=== PATIENT | female | born 1965 | race Caucasian/White ===

== ENCOUNTER 2019-05-22 00:25 | Day surgery (SDC) | payer MEDICARE, OTHER, SELFPAY ==
[2019-05-08 13:40] VITALS: BMI 40.2
--- NOTE | 2019-05-19 18:34 | WPDANESEPP ---
Anes - Eval Pre Procedure Procedure: Operation Date: 05/22/19 07:30 Proposed Procedures p Hysteroscopy, Dilation and Curettage - Shanda Virk MD Date/Time: 05/19/19 18:34 Pre Op Diagnosis: Thickened Endometrium/ Postmenopausal Bleeding Patient Data Age: 54 Gender: F Height: 1.57 m Weight: 99.8 kg Allergies Allergy/AdvReac Type Severity Reaction Status Date / Time iodine Allergy Mild EYE Unverified 05/08/19 13:32 SWELLING Penicillins Allergy Unknown Hives Verified 05/08/19 13:32 Sulfa (Sulfonamide Allergy Unknown Unknown Verified 05/08/19 13:32 Antibiotics) GLUTARALDEHYDE Allergy Unknown HIVES Uncoded 05/08/19 13:32 Home Medications Medication Instructions Recorded Confirmed Type albuterol sulfate [Ventolin HFA] 2 puff INHALATION PRN PRN 05/08/19 05/08/19 History buspirone 30 mg PO HS 05/08/19 05/08/19 History cholecalciferol (vitamin D3) 5,000 unit PO EVERY OTHER DAY 05/08/19 05/08/19 History fexofenadine-pseudoephedrine 1 tablet PO HS 05/08/19 05/08/19 History [Ryanne-D 24 Hour] metoprolol succinate 50 mg PO HS 05/08/19 05/08/19 History paroxetine HCl [Paxil] 30 mg PO HS 05/08/19 05/08/19 History ECG: NSR 67 BPM Patient hx anesthesia problems: none Family hx anesthesia problems: none PMFSH Past Medical History Medical History (Updated 05/19/19 @ 18:39 by Flora Enrique CRNA) Asthma Depression Endometriosis History of hysteroscopy HTN (hypertension) Morbid obesity Osteopenia Surgical History Surgical History (Updated 05/19/19 @ 18:39 by Flora Enrique CRNA) H/O cystoscopy History of bilateral tubal ligation History of tonsillectomy and adenoidectomy Previous section S/P right oophorectomy Family History Family History (Updated 01/30/15 @ 09:27 by DOCTOR UNKNOWN) Other Cerebrovascular accident Diabetes mellitus Family history of allergic disorder Family history of cardiovascular disease Family history of malignant neoplasm Hypertension Social History Social History Smoking status: Never smoker Alcohol intake: never Exam Day of Procedure 05/19/19 18:34
[2019-05-22] VITALS (7 sets, daily range): BP systolic 105–139; BP diastolic 53–76; PULSE 63–72; RESP 12–16; TEMP 36.7; O2SAT 93–100; BMI 40.6
[2019-05-22] MEDS: LACTATED RINGERS 1,000 ML 30 ML IV CONT (06:40)
--- NOTE | 2019-05-22 07:10 | PM.HPGS ---
History of Present Illness History of Present Illness Consent: Risks, benefits, and alternatives have been discussed and questions answered. Patient agrees to proceed with procedure. Chief complaint: Thickened Endometrium/ Postmenopausal Bleeding Narrative: Carmen Philippe is a 54 year old female with postmenopausal bleeding and u/s with thickened lining at 7 mm. Recommended to proceed with hysteroscopy and D&C. Risks of infection, bleeding, and perforation reviewed. Possible pathology discussed. Patient voiced understanding and agrees to proceed. Review of Systems Constitutional: Constitutional: Reports fatigue Gastrointestinal: Gastrointestinal: Reports heartburn Musculoskeletal: Musculoskeletal: Reports back pain and Reports myalgias Psychiatric: Psychiatric: Reports anxiety [facility] Past Medical History Medical History (Updated 05/22/19 @ 07:15 by Shanda Vikr MD) Asthma Depression Endometriosis History of hysteroscopy HTN (hypertension) Morbid obesity Osteopenia Surgical History Surgical History (Updated 05/19/19 @ 18:39 by Flora Enrique CRNA) H/O cystoscopy History of bilateral tubal ligation History of tonsillectomy and adenoidectomy Previous section S/P right oophorectomy Family History Family History (Updated 01/30/15 @ 09:27 by DOCTOR UNKNOWN) Other Cerebrovascular accident Diabetes mellitus Family history of allergic disorder Family history of cardiovascular disease Family history of malignant neoplasm Hypertension Social History Social History Smoking status: Never smoker Alcohol intake: never Meds Home Medications and Allergies Home Medications Medication Instructions Recorded Confirmed Type albuterol sulfate [Ventolin HFA] 2 puff INHALATION PRN PRN 05/08/19 05/08/19 History buspirone 30 mg PO HS 05/08/19 05/08/19 History cholecalciferol (vitamin D3) 5,000 unit PO EVERY OTHER DAY 05/08/19 05/08/19 History fexofenadine-pseudoephedrine 1 tablet PO HS 05/08/19 05/08/19 History [Ryanne-D 24 Hour] metoprolol succinate 50 mg PO HS 05/08/19 05/08/19 History paroxetine HCl [Paxil] 30 mg PO HS 05/08/19 05/08/19 History Allergies Allergy/AdvReac Type Severity Reaction Status Date / Time iodine Allergy Mild EYE Verified 05/22/19 06:49 SWELLING Penicillins Allergy Unknown Hives Verified 05/08/19 13:32 Sulfa (Sulfonamide Allergy Unknown Unknown Verified 05/08/19 13:32 Antibiotics) GLUTARALDEHYDE Allergy Unknown HIVES Uncoded 05/08/19 13:32 Vital Signs Vital Signs - 24 hr 05/22/19 06:40 Temperature 98.0 F Pulse Rate 65 Respiratory Rate 15 Blood Pressure 105/71 Pulse Oximetry 98 Exam Narrative: Exam Narrative: BMI 40 Const: General: no acute distress Resp: Auscultation: clear to auscultation bilaterally Cardio: Rate: regular rate Rhythm: regular rhythm GI: GI Palp: Yes soft : External Female Exam: normal external appearance Speculum Exam - Vagina: normal appearance of the vagina Speculum Exam - Cervix: normal appearance of the cervix Bimanual exam- vagina & uterus: normal bimanual exam Bimanual Exam- Adnexa, other: normal adnexae Psych: Mental Status: mental status grossly normal Assessment and Plan Assessment and plan (1) Post-menopausal bleeding: Code(s): N95.0 - Postmenopausal bleeding Status: Acute Assessment and Plan: Plan hysteroscopy with D&C
--- NOTE | 2019-05-22 07:18 | WPDANESEPPF ---
Anes - Initial Pre Proc Eval Procedure: Operation Date: 05/22/19 07:30 Proposed Procedures p Hysteroscopy, Dilation and Curettage - Shanda Virk MD Date/Time: 05/22/19 07:18 Surgeon: Shanda Virk MD Pre Op Diagnosis: Thickened Endometrium/ Postmenopausal Bleeding Patient Data Age: 54 Gender: F Height: 5 ft 2 in Weight: 100.8 kg Last Vital Signs Temp 98.0 F 05/22/19 06:40 Pulse 65 05/22/19 06:40 Resp 15 05/22/19 06:40 BP 105/71 05/22/19 06:40 Pulse Ox 98 05/22/19 06:40 Allergies Allergy/AdvReac Type Severity Reaction Status Date / Time iodine Allergy Mild EYE Verified 05/22/19 06:49 SWELLING Penicillins Allergy Unknown Hives Verified 05/08/19 13:32 Sulfa (Sulfonamide Allergy Unknown Unknown Verified 05/08/19 13:32 Antibiotics) GLUTARALDEHYDE Allergy Unknown HIVES Uncoded 05/08/19 13:32 Home Medications Medication Instructions Recorded Confirmed Type albuterol sulfate [Ventolin HFA] 2 puff INHALATION PRN PRN 05/08/19 05/08/19 History buspirone 30 mg PO HS 05/08/19 05/08/19 History cholecalciferol (vitamin D3) 5,000 unit PO EVERY OTHER DAY 05/08/19 05/08/19 History fexofenadine-pseudoephedrine 1 tablet PO HS 05/08/19 05/08/19 History [Ryanne-D 24 Hour] metoprolol succinate 50 mg PO HS 05/08/19 05/08/19 History paroxetine HCl [Paxil] 30 mg PO HS 05/08/19 05/08/19 History Patient hx anesthesia problems: none Family hx anesthesia problems: none PMFSH Past Medical History Medical History (Updated 05/22/19 @ 07:15 by Shanda Virk MD) Asthma Depression Endometriosis History of hysteroscopy HTN (hypertension) Morbid obesity Osteopenia Surgical History Surgical History (Updated 05/19/19 @ 18:39 by Flora Enrique CRNA) H/O cystoscopy History of bilateral tubal ligation History of tonsillectomy and adenoidectomy Previous section S/P right oophorectomy Family History Family History (Updated 01/30/15 @ 09:27 by DOCTOR UNKNOWN) Other Cerebrovascular accident Diabetes mellitus Family history of allergic disorder Family history of cardiovascular disease Family history of malignant neoplasm Hypertension Social History Social History Smoking status: Never smoker Alcohol intake: never Anes - Eval Final PreProcedure Day of Procedure 05/22/19 07:18 Patient weight: morbidly obese Heart: regular rate and rhythm Lungs: clear to auscultation Airway: Mallampati scale class II Neurological: alert and oriented Last oral intake: >/= 8 hours ASA classification: III Emergent: no Anesthetic plan: proceed Anesthesia type and monitoring: general GIVS and standard monitoring Informed Consent: The patient's anesthetic plan and its attendant risks and benefits were discussed with the patient/family/POA. Questions were solicited and answers provided to the satisfaction of the patient/family/POA.
[2019-05-22] MEDS: KETOROLAC 30 MG/ML VIAL (*BKC) IV PUSH (07:48)
--- NOTE | 2019-05-22 07:51 | PM.OP ---
Procedure Note - Brief Procedure Note - Brief Date of procedure: 05/22/19 Pre-op diagnosis: Thickened Endometrium/ Postmenopausal Bleeding Post-op diagnosis: same Procedure performed: hysteroscopy with D&C Anesthesia: MAC and local Surgeon: Shanda Virk MD Estimated blood loss (mL): 5 Drains: No Packing: No Pathology: yes (endometrial curettings) Complications: No immediate complications Condition: stable Disposition: PACU Findings: uterus 7 cm and grossly atrophic
--- NOTE | 2019-05-22 12:10 | OP_ITS ---
DATE OF PROCEDURE: 05/22/2019 PREOPERATIVE DIAGNOSIS: Postmenopausal bleeding with thickened endometrium. POSTOPERATIVE DIAGNOSIS: Postmenopausal bleeding with thickened endometrium. PROCEDURE: Hysteroscopy with D and C. ANESTHESIA: MAC and local. FINDINGS: The uterus sounded to 7 cm, appears grossly atrophic. ESTIMATED BLOOD LOSS: 5 cc. PATHOLOGY: Endometrial curettings. DESCRIPTION OF PROCEDURE: The patient was taken to the operating room, placed under anesthesia, prepped and draped in usual sterile fashion. Bivalved speculum was placed in the vagina. Cervix was grasped on the anterior lip with a tenaculum and injected with 1% lidocaine. The uterus was sounded to 7 cm. The cervix was serially dilated with Hegars. The diagnostic hysteroscope was placed with the above-stated findings. The hysteroscope was removed. The medium sharp curette was used to sharply curette the endometrium until a good uterine cry was noted in all areas. All instruments were then removed. The patient was awakened from anesthesia and taken to Recovery in stable condition. D I MT: Akil
== END 2019-05-22 09:47 | disposition home or self-care (01) ==
PROVIDERS: Visit Provider Obstetrics & Gynecology Gynecology
PROC: 0U5B8ZZ Destruction of Endometrium, Via Natural or Artificial Opening Endoscopic (ICD-10-PCS; CPT 58563; principal; 2019-05-22 07:30)
DX: N95.0 Postmenopausal bleeding (principal); N85.8 Other specified noninflammatory disorders of uterus; I10 Essential (primary) hypertension; J45.909 Unspecified asthma, uncomplicated; F32.9 Major depressive disorder, single episode, unspecified; M85.80 Other specified disorders of bone density and structure, unspecified site; E66.01 Morbid (severe) obesity due to excess calories; Z68.41 Body mass index [BMI] 40.0-44.9, adult
CPT/HCPCS: 58558; 88305; A9270; J1885; J2250; J2704; J3010; J7030; J7120

== ENCOUNTER → 2021-10-03 13:58 | Outpatient (CLI) | payer MEDICARE, OTHER, SELFPAY ==
--- NOTE | ~2021-10-03 | MM_ITS ---
EXAMINATION: MM screening [facility] BI w urmila HISTORY: Screening mammogram TECHNIQUE: Craniocaudal and mediolateral oblique 3-D tomosynthesis images were obtained and synthetic 2-D images were generated. CAD analysis was submitted and interpreted. COMPARISON: 05/18/2019, 05/25/2017 BREAST PARENCHYMAL COMPOSITION: There are scattered areas of fibroglandular density. FINDINGS: There is no suspicious mass, calcification, or architectural distortion to suggest malignan cy in either breast. There has been no suspicious interval change. IMPRESSION: 1. No mammographic evidence of malignancy. 2. Recommend routine screening mammography in one year. BI-RADS Category 1: Negative Reviewed, dictated and finalized at location A.
== END ==
PROVIDERS: PCP Internal Medicine; Visit Provider Nurse Practitioner
DX: Z12.31 Encounter for screening mammogram for malignant neoplasm of breast (principal)
CPT/HCPCS: 77063; 77067

== ENCOUNTER → 2023-02-01 15:27 | Outpatient (CLI) | payer MEDICARE, OTHER, SELFPAY ==
--- NOTE | ~2023-02-01 | XR_ITS ---
AP view of the pelvis and AP and lateral views of the right hip Clinical history: Pain Findings: No acute fracture or dislocation is seen. Osseous alignment is anatomic. Bilateral hip and SI joint spaces are preserved. Soft tissues are unremarkable. Impression: No significant abnormality is seen. Reviewed, dictated and finalized at location . Impression: No significant abnormality is seen.
== END ==
PROVIDERS: PCP Internal Medicine; Visit Provider Internal Medicine
DX: M25.551 Pain in right hip (principal)
CPT/HCPCS: 73502

== ENCOUNTER → 2023-06-28 10:18 | Outpatient (CLI) | payer MEDICARE, OTHER, SELFPAY ==
--- NOTE | ~2023-06-28 | MM_ITS ---
EXAMINATION: MM screening [facility] BI w urmila HISTORY: Screening mammogram TECHNIQUE: Craniocaudal and mediolateral oblique 3-D tomosynthesis images were obtained and synthetic 2-D images were generated. CAD analysis was submitted and interpreted. COMPARISON: 10/03/2021, 05/18/2019, 06/04/2017 BREAST PARENCHYMAL COMPOSITION: There are scattered areas of fibroglandular density. FINDINGS: No suspicious mass, calcification, or architectural distortion are identified in either babar ast to suggest malignancy. There has been no suspicious interval change. IMPRESSION: 1. No mammographic evidence of malignancy. 2. Recommend routine screening mammography in one year. BI-RADS Category 1: Negative Reviewed, dictated and finalized at location A. K COOPER
--- NOTE | ~2023-06-28 | DEXA_ITS ---
Bone Density Report Name: SVEN PAPPAS Age: 58 Sex: Female Ethnicity: White Date of : 1965 Indication: postmenopausal; screening for osteoporosis; Referring Provider: ALEXANDRIA, LETHA Study: Bone densitometry was performed. Exam Date: June 28, 2023 Accession number: [id number] Bone Density: Region BMD T-score Z-score Classification AP Spine (L1-L4) 1.092 0.4 1.8 Normal Femoral Neck (Left) 0.639 -1.9 -0.6 Osteopenia Total Hip (Left) 0.937 0.0 0.9 Normal Femoral Neck (Right) 0.708 -1.3 0.0 Osteopenia Total Hip (Right) 0.933 -0.1 0.9 Normal Total Hip Mean 0.935 -0.1 0.9 Normal World Health Organization criteria for BMD impression classify patients as: Normal (T-score at or above -1.0), Osteopenia (T-score between -1.0 and -2.5), or Osteoporosis (T-score at or below -2.5). 10-year Fracture Risk(1): Major Osteoporotic Fracture 8.1% Hip Fracture 0.8% Reported Risk Factors: [place] (), Neck BMD=0.639, BMI=38.9 (1) FRAX(R) Version 3.08. Fracture probability calculated for an untreated patient. Fracture probability may be lower if the patient has received treatment. Previous Exams: Region Exam Age BMD T-score BMD Change BMD Change Date g/cm2 vs Baseline vs Previous AP Spine(L1-L4) 06/28/2023 58 1.092 0.4 0.055 0.042* 05/18/2019 54 1.049 0.0 0.012 0.012 05/15/2015 50 1.037 -0.1 Total Hip(Left) 06/28/2023 58 0.937 0.0 0.016 0.010 05/18/2019 54 0.926 -0.1 0.006 0.006 05/15/2015 50 0.920 -0.2 Total Hip(Right) 06/28/2023 58 0.933 -0.1 0.033 0.055* 05/18/2019 54 0.878 -0.5 -0.022 -0.022 05/15/2015 50 0.900 -0.3 *Denotes significance at 95% confidence level, LSC for AP Spine = 0.022 g/cm2, LSC for Total Hip = 0.027 g/cm2 Clinical Information Provided by Patient: Has used the following medications: Vitamin D, Calcium Patient maximum height was 62.7 Menopause Age: 38 No regular weight bearing exercise Does not regularly consume dairy products Onset of menses at age 11 Number of children 1 Impression: The patient has low bone mass, based on the Left Femoral Neck T-score. The patient has an estimated ten-year risk of hip fracture of 0.8% and an estimated ten-year risk of major fracture of 8.1%, based on the WHO FRAX algorithm. No significant bone loss was observed.
== END ==
PROVIDERS: PCP Nurse Practitioner; Visit Provider Nurse Practitioner
DX: Z12.31 Encounter for screening mammogram for malignant neoplasm of breast (principal); Z78.0 Asymptomatic menopausal state; M85.852 Other specified disorders of bone density and structure, left thigh; M85.851 Other specified disorders of bone density and structure, right thigh
CPT/HCPCS: 77063; 77067; 77080

== ENCOUNTER 2024-02-28 09:53 | Outpatient (CLI) | payer MEDICARE, OTHER, SELFPAY ==
--- NOTE | ~2024-02-28 | CT_ITS ---
Non-contrast CT scan of the Abdomen and Pelvis Clinical indication: Abdominal pain Technique: 2.5 mm axial scans were obtained through the abdomen and pelvis without intravenous or or al contrast. Dose reduction technique was used on this scan by utilizing automated exposure control a nd iterative reconstruction technique. The dose-length product (DLP) was 1036.10 mGy-cm. Findings: Images through the lung bases reveal no abnormalities. There is no evidence of renal or ureteral calculi. The kidneys and the ureters are nondilated. The liver, spleen, pancreas, and adrenals appear normal. Cholecystectomy clips are present. There is no aortic aneurysm. There is no evidence of bowel obstruction. Images through the pelvis were performed. There is no evidence of ascites or lymphadenopathy. Urinary bladder unremarkable. No pelvic mass seen. Impression: No significant abnormality seen. Reviewed, dictated and finalized at [facility]. Impression: No significant abnormality seen.
== END 2024-02-28 09:54 | disposition home or self-care (01) ==
LOC: MICIMG 09:56
PROVIDERS: Visit Provider Internal Medicine
DX: R10.9 Unspecified abdominal pain (principal)
CPT/HCPCS: 74176

== ENCOUNTER 2024-07-13 10:46 | Outpatient (CLI) | payer MEDICARE, OTHER, SELFPAY | END 2024-07-13 10:47 | disposition home or self-care (01) | LOC: MICIMG 10:47 | PROVIDERS: PCP Internal Medicine; Visit Provider Nurse Practitioner | DX: R10.2 Pelvic and perineal pain (principal) | CPT/HCPCS: 76830 ==

== ENCOUNTER 2024-09-05 09:37 | Outpatient (CLI) | payer MEDICARE, OTHER, SELFPAY ==
[2024-09-05 10:12] LABS: Anion Gap 9 mmol/L (4-12); Blood Urea Nitrogen 13 mg/dL (7-17); Carbon Dioxide 27 mmol/L (22-30); Chloride 102 mmol/L (98-107); Estimated Glomerular Filt Rate > 60; Glucose 116 mg/dL (65-110); Potassium 3.7 mmol/L (3.4-5.0); Sodium 138 mmol/L (137-145)
--- OUTSIDE RECORDS SUMMARY | 2024-09-05 10:46 | XMS_ITS | Clinical Summary ---
Author Organization [facility] Address [address] [place] [address] Care Team Providers Care Information Strategist Name Role Phone Philippe Terry MD Primary Care Provider [phone] Allergies Active Allergy Reactions Criticality Noted Date Comments Bupropion Unknown 09/10/2023 Duloxetine Hcl Unknown 09/10/2023 Iodinated Contrast Media Swelling Medium 06/19/2022 Iodine Swelling,Unknown High 06/02/2013 Eyes swelled closed Penicillins Unknown,Hives Medium 06/06/2018 Sulfa Antibiotics Unknown Low 06/06/2018 Medications busPIRone 10 MG tabletIndicatio ns:30mg daily Take 1 tablet (10 mg total) by mouth 3 (three) times daily. Indications: 30mg daily Active albuterol sulfate HFA 108 (90 Base) MCG/ACT inhaler Inhale 2 puffs into the lungs every 6 (six) hours as needed. Active ALPRAZolam (XANAX) 0.25 MG tablet alprazolam 0.25 mg tablet TK 1 TO 2 TS PO D PRN Active vitamin D3, cholecalciferol , 125 mcg capsule Take 1 capsule (125 mcg total) by mouth. Active levalbuterol (XOPENEX HFA) 45 MCG/ACT inhaler every 6 (six) hours. Active sertraline (ZOLOFT) 50 MG tablet Take 1 tablet (50 mg total) by mouth daily. Active hydroCHLOROthia zide (HYDRODIURIL) 25 MG tablet TAKE 1 TABLET(25 MG) BY MOUTH EVERY MORNING 30 tablet 12 5 Active losartan (COZAAR) 50 MG tablet TAKE 1 TABLET(50 MG) BY MOUTH DAILY 30 tablet 12 5 Active Active Problems Problem Noted Date Diagnosed Date Morbid (severe) obesity due to excess calories 0 06/28/2023 Body mass index (BMI) 40.0-44.9, adult 4 Right lower quadrant abdominal pain 12/16/2022 Overview (12/16/2022): Added automatically from request for surgery [id number] RUQ abdominal pain 12/16/2022 Overview (12/16/2022): Added automatically from request for surgery [id number] Food poisoning 12/16/2022 Overview (12/16/2022): Added automatically from request for surgery [id number] Chest pain 01/26/2022 Diabetes mellitus ([facility]) 12/31/2020 Epigastric pain 01/17/2020 Overview (01/17/2020): Added automatically from request for surgery [id number] Screening for colon cancer 01/17/2020 Overview (01/17/2020): Added automatically from request for surgery [id number] Constipation, unspecified constipation type 06/2019 Overview (01/17/2020): Added automatically from request for surgery [id number] Diarrhea, unspecified type 01/17/2020 Overview (01/17/2020): Added automatically from request for surgery [id number] Obesity 06/06/2018 Vitamin D deficiency 06/06/2018 Depressive disorder 06/06/2018 Hypertension 06/06/2018 Joint pain 06/06/2018 Osteopenia 06/06/2018 Sleep disorder 06/06/2018 Fatigue 06/06/2018 Palpitations 06/06/2018 Hyperglycemia 06/06/2018 Muscle pain 05/04/2013 Overview (03/25/2022): Muscle pain Encounters Date Type Department Care Team Description 07/17/2024 10:15 AM COUNSELING DIRECTOR Telephone [facility] [address] [facility] [address] [place] [address] Pb Galindo MD Holter Monitor 06/29/2024 12:15 PM COUNSELING DIRECTOR Office Visit [facility] [address] [facility] [address] [address] [place] [address] Pb Galindo MD Follow Up (Annual ) 06/29/2024 Orders Only [facility] [address] [facility] [address] [address] [place] [address] Pb Galindo MD 06/29/2024 Travel 06/07/2024 Telephone [facility] [address] [facility], [address] [place] [address] Pb Galindo MD Concerns from Last 3 Months Family History Medical History Relation Comments Hypertension Mother Stroke Mother Relation Status Comments Father (Age 42) Mother (Age 72) Social History Tobacco Use Types Packs/Day Years Used Date Smoking Tobacco: Never Smokeless Tobacco: Never Tobacco Cessation:Counseling Given: Not Answered Alcohol Use Standard Drinks/Week Comments Not Currently 0 (1 standard drink = 0.6 oz pur e alcohol) PHQ-2 Answer Date Recorded PHQ-2 Score - If the patient scores above 3, please move on to questions 3-9 0 08/27/2021 Comments No Sex and Gender Information Value Date Recorded Sex Assigned at Female 06/29/2024 11:57 AM COUNSELING DIRECTOR Legal Sex Female 8:31 PM CDT Gender Identity Not on file Sexual Orientation Not on file Last Filed Vital Signs Vital Sign Reading Time Taken Comments Blood Pressure 132/72 06/29/2024 12:02 PM COUNSELING DIRECTOR Pulse 72 06/29/2024 12:02 PM COUNSELING DIRECTOR Temperature 37.4 C (99.3 F) 03/26/2023 11:26 AM COUNSELING DIRECTOR Respiratory Rate 16 03/26/2023 11:26 AM COUNSELING DIRECTOR Oxygen Saturation 98% 06/29/2024 12:02 PM COUNSELING DIRECTOR Inhaled Oxygen Concentration - - Weight 101.2 kg (223 lb) 06/29/2024 12:02 PM COUNSELING DIRECTOR Height 157.5 cm (5' 2 ) 06/29/2024 12:02 PM COUNSELING DIRECTOR Body Mass Index 40.79 06/29/2024 12:02 PM COUNSELING DIRECTOR Plan of Treatment Upcoming Encounters Date Type Department Care Team (Late st Contact Info) Description 07/05/2025 11:00 AM COUNSELING DIRECTOR Office Visit [facility] [address] [facility] [place], [place] [id number] Pb Galindo MD [address] [facility] [address] [place], [place] [id number] Health Maintenance Due Date Last Done Comments Cervical Cancer Screening Pa p Smear (Age 30 to 64) Every 3 Years 1963 Kidney Health Evaluation 1963 Hemoglobin A1C 1963 Annual Physical 1966 Diabetes: Retinopathy Eye Exam 1981 Hepatitis C 1981 DTaP, Tdap and Td Vaccines ( 1 - Tdap) 1982 Pneumococcal Vaccine: 50+ Years (1 of 2 - PCV) 1982 Cervical Cancer Screening Pa p with HPV Testing (Age 30 to 64) Every 5 Years 1993 Cervical Cancer Screening wi HPV 1993 Mammogram Screening 2003 Zoster Vaccines (1 of 2) 2013 RSV Immunization or 60+ Years (1 - Risk 60-74 years 1-dose series) 2023 COVID-19 Vaccine (1 - 2023-2 5 season) 2024 PHQ-2 (Physician [place]) 05/17/2024 Lipid Panel 06/28/2024 06/28/2023, 03/27/2022 Colorectal Cancer Screening Colonoscopy (10 Years) 03/26/2033 03/26/2023, 01/26/2020 Meningococcal B Vaccine Aged Out No l onger eligible based on patient's age to complete this topic Meningococcal Vaccine Aged Out No bettina catina eligible based on patient's age to complete this topic RSV Immunizations Under 20 Months Aged Out No longer eligible b ased on patient's age to complete this topic Procedures Procedure Name Priority Date/Time Associated Diagnosis Comments LIPID PANEL Routine 06/28/2023 from Last 3 Months or Most Recently Relevant to Health Maintenance Results * LIPID PANEL (06/28/2023) CHOLESTEROL 166 HDL 48 TRIGLYCERIDES 101 LDL (CALCULATED) 99 06/28/2023 us Default History Genericprovider LABORATORY Final Result from Last 3 Months or Most Recently Relevant to Health Maintenance Insurance MEDICARE [employer] OPEN ACCESS [facility] Care Teams Information Strategist Relationship Specialty Start Date End Date Philippe Terry MD PCP - General INTERNAL MEDICINE 05/05/18
--- OUTSIDE RECORDS SUMMARY | 2024-09-05 10:46 | XMS_ITS | Referral Summary ---
Author Organization [facility] Address [address] [place] [address] Care Team Providers Care Marketing Assistant Manager Name Role Phone Philippe Terry MD Primary Care Provider [phone] Allergies Active Allergy Reactions Criticality Noted Date Comments Iodinated Contrast Media Swelling Medium 06/02/2013 Iodine Swelling,Unknown High 06/02/2013 Eyes swelled closed Penicillin G Penicillins Hives,Unknown Medium 06/06/2018 Sulfa (Sulfonamide Antibiotics) Unknown Low 06/06/2018 Medications PARoxetine (PAXIL) 30 mg tablet take 1 Tablet by oral route every day 0 0 3 Active busPIRone (BUSPAR) 30 mg tablet take 1 tablet by oral route a day 0 0 3 Active fexofenadine (BEKA) 180 mg tablet take 1 tablet by oral route every day 0 0 3 Active metoprolol (LOPRESSOR) 50 mg tablet take 1 tablet by oral route 2 times every day with meals 0 0 3 Active azithromycin (Zithromax Z-Raudel) 250 mg tabletIndicatio ns:Chronic sinusitis, unspecified location Take as directed 6 tablet 0 Active ALPRAZolam (XANAX) 0.25 mg tablet alprazolam 0.25 mg tablet TK 1 TO 2 TS PO D PRN Active beclomethasone (QVAR) 40 mcg/actuation inhaler Qvar 40 mcg/actuation Metered Aerosol oral inhaler Active cholecalciferol (VITAMIN D-3) 5,000 unit capsule Take 1 capsule (5,000 Units total) by mouth 3 (three) times a week Active clotrimazole-be tamethasone (LOTRISONE) cream clotrimazole-beta methasone 1 %-0.05 % topical cream Active DULoxetine DR (CYMBALTA) 60 mg capsule Take 1 capsule (60 mg total) by mouth every morning 2 Active ketorolac (TORADOL) 10 mg tablet ketorolac 10 mg tablet Active levalbuterol (Xopenex HFA) 45 mcg/actuation inhaler Xopenex HFA 45 mcg/actuation aerosol inhaler Inhale 2 puffs 4 times a day by inhalation route as needed. 3 Active LORazepam (ATIVAN) 0.5 mg tablet lorazepam 0.5 mg tablet Active metaxalone (SKELAXIN) 800 mg tablet metaxalone 800 mg tablet TK 1 T PO QHS PRF BACK SPASM Active metoprolol XL (TOPROL-XL) 50 mg extended release tablet Take 1 tablet (50 mg total) by mouth daily 2 Active metroNIDAZOLE (METROGEL) 0.75 % gel metronidazole 0.75 % topical gel Active polyethylene glycol-electrol ytes-vitC (MoviPrep) 100-7.5-2.691 gram powder in packet MoviPrep 100 gram-7.5 gram-2.691 gram oral powder packet U UTD Active pimecrolimus (Elidel) 1 % cream Elidel 1 % topical cream APPLY A THIN LAYER TO THE AFFECTED AREA(S) BY TOPICAL ROUTE 2 TIMES PER DAY ; RUB IN GENTLY AND COMPLETELY Active pramipexole (MIRAPEX) 0.125 mg tablet pramipexole 0.125 mg tablet Active traZODone (DESYREL) 50 mg tablet trazodone 50 mg tablet Active triamcinolone (KENALOG) 0.025 % cream triamcinolone acetonide 0.025 % topical cream APPLY A THIN LAYER TO THE AFFECTED AREA BID Active dicyclomine (BENTYL) 20 mg tabletIndicatio ns:Abdominal Pain with Cramps Take 1 tablet (20 mg total) by mouth 2 (two) times a day as needed (pain) 30 tablet 3 Active ARIPiprazole (ABILIFY) 5 mg tablet Take 1 tablet (5 mg total) by mouth nightly 4 Active ergocalciferol (VITAMIN D) 50,000 unit capsule Take 1 capsule (50,000 Units total) by mouth 4 Active hydroCHLOROthia zide (HYDRODIURIL) 25 mg tablet Take 1 tablet (25 mg total) by mouth complex 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 before breakfast 4 Active losartan (COZAAR) 50 mg tablet Take 1 tablet (50 mg total) by mouth daily 4 Active benzonatate (TESSALON) 100 mg capsuleIndicati ons:Cough Take 1 capsule (100 mg total) by mouth 3 (three) times a day as needed for cough 42 capsule 4 Active Active Problems Problem Noted Date Diagnosed Date Deviated nasal septum 11/07/2021 Throat pain in adult 11/07/2021 Sleep disorder 05/04/2013 Overview (08/19/2016): Sleep disorder Restless legs syndrome 05/04/2013 Overview (08/19/2016): RLS (restless legs syndrome) Hypertension 05/04/2013 Overview (08/19/2016): Hypertension Muscle pain 05/04/2013 Overview (08/19/2016): Muscle pain Social History Tobacco Use Types Packs/Day Years Used Date Smoking Tobacco: Never Smokeless Tobacco: Never Alcohol Use Standard Drinks/Week Comments No 0 (1 standard drink = 0.6 oz pur e alcohol) Personal Safety Answer Date Recorded Have you ever been in or are you currently in a harmful physical or emotional relationship or is someone making you feel afraid or unsafe? Denies 12/02/2022 Comments No Sex and Gender Information Value Date Recorded Sex Assigned at Not on file Legal Sex Female 12:53 AM EDUCATION COURSES SALES REPRESENTATIVE Gender Identity Not on file Sexual Orientation Not on file Last Filed Vital Signs Vital Sign Reading Time Taken Comments Blood Pressure 145/81 04/10/2024 9:47 AM EDUCATION COURSES SALES REPRESENTATIVE Pulse 66 04/10/2024 9:47 AM EDUCATION COURSES SALES REPRESENTATIVE Temperature 37.4 C (99.3 F) 04/10/2024 9:47 AM EDUCATION COURSES SALES REPRESENTATIVE Respiratory Rate 16 04/10/2024 9:47 AM EDUCATION COURSES SALES REPRESENTATIVE Oxygen Saturation 96% 04/10/2024 9:47 AM EDUCATION COURSES SALES REPRESENTATIVE Inhaled Oxygen Concentration - - Weight 98.9 kg (218 lb) 04/10/2024 9:47 AM EDUCATION COURSES SALES REPRESENTATIVE Height 157.5 cm (5' 2 ) 04/10/2024 9:47 AM EDUCATION COURSES SALES REPRESENTATIVE Body Mass Index 39.87 04/10/2024 9:47 AM EDUCATION COURSES SALES REPRESENTATIVE Plan of Treatment Not on file Insurance MEDICARE [facility] OPEN ACCESS MEDICARE [facility] [employer] OPEN ACCESS MEDICARE Care Teams Marketing Assistant Manager Relationship Specialty Start Date End Date Philippe Terry MD PCP - General 08/17/16
--- OUTSIDE RECORDS SUMMARY | 2024-09-05 10:46 | XMS_ITS | Patient Health Record ---
Author Organization [facility] As [employer] [facility] Address [address] [place] [address] Care Team Providers Care Day Habilitation Supervisor Name Role Phone Philippe Terry MD Primary Care Provider Unavail able Cami Rice Unavailable [phone] Molly Chong Unavailable [phone] Migration, Provider Unavailable Unavailable Allergies Allergen (clinical drug ingredient) Drug/Non Drug Allergy documented on EMR Reaction Allergy Type Onset Date Status Substance with sulfonamide structure and antibacterial mechanism of action (substance) SULFA (SULFONAMIDE ANTIBIOTICS) (uncoded) Unknown Allergy 09/10/2023 Active duloxetine Cymbalta Unknown Drug Allergy 09/10/2023 Activ e Iodine Unknown Drug Allergy 09/10/2023 Active Wellbutrin Unknown Drug Allergy 09/10/2023 Activ e vilazodone Viibryd suicide thoughts Drug Allergy Active Substance with penicillin structure and antibacterial mechanism of action (substance) Penicillins Unknown Drug Allergy 09/10/2023 Active Reason For Referral No Information Medications Medication SIG (Take, Route, Frequency, Duration) Notes Start Date End Date Status Ondansetron 4 MG 1 tablet on the tongue and allow to dissolve Orally twice a day for 30 days 09/05/2024 Active hydroCHLOROthiazide 25 MG Oral 09/10/2023 Active Losartan Potassium 25 MG Oral 09/10/2023 Not-Taking Losartan Potassium 50 MG Oral 09/10/2023 Active Venlafaxine HCl ER 37.5 MG Oral 09/10/2023 Not-Taking Vitamin D 50 MCG (1999 UT) 1 tablet Oral ly once a week 02/03/2024 Active DULoxetine HCl 60 MG Oral 09/10/2023 Not-Taking traZODone HCl 50 MG Oral 09/10/2023 Not-Taking Vortioxetine HBr 5 MG 1 tablet Orally Once a day for 30 days Active busPIRone HCl 10 MG 1 tablet Oral three times a day for 90 days 09/10/2023 11/06/2024 Active Benzonatate 200 MG Oral 09/10/2023 Not-Taking hydrOXYzine HCl 10 MG 1 tablet as needed Orally three times a day for 90 days As needed Active ALPRAZolam 0.25 MG 1 tablet Oral once a day for 30 days PRN 07/14/2024 Active Doxycycline Hyclate 100 MG Oral 09/10/2023 Not-Taking ProAir HFA 108 (90 Base) MCG/ACT Inhalation 09/10/2023 Active Metoprolol Succinate ER 50 MG Oral 09/10/2023 Not-Taking PARoxetine HCl 30 MG 1 tablet in the morning Oral Once a day for 90 days 09/10/2023 Not-Taking lamoTRIgine 25 MG 1 tablet daily for 2 weeks then increase to 2 tablets daily Orally 1 tablet daily for 2 weeks then increase to 2 tablets daily for 30 days 06/08/2024 Not-Taking Social History Tobacco Use: Social History Observation Description Date Details (start date - stop date) Never Smoker NA - NA Sex Assigned At : Social History Observation Description Sex Assigned At Female Tobacco Control (Standard) Question Answer Notes Tobacco use: Nonsmoker AUDIT-C (Standard) Question Answer Notes Did you have a drink containing alcohol in the p ast year? No Problems Problem Type SNOMED Code ICD Code Onset Dates Problem Status W/U Status Risk Notes Problem Mild recurrent major depression (09227374) Major depressive disorder, recurrent, mild (F33.0) 09/10/19 Active confirmed Problem Generalized anxiety disorder (15110560) Generalized anxiety disorder (F41.1) 09/10/19 Active confirmed Problem Insomnia disorder related to another mental disorder (58266429) Insomnia due to other mental disorder (F51.05) 09/10/19 Active confirmed Problem Screening for cardiovascular system disease (868245529) Encounter for screening for cardiovascular disorders (Z13.6) Active confirmed Problem Long-term current use of drug therapy (421459659) Other trial management associate (current) drug therapy (Z79.899) 09/10/19 Active confirmed Problem Depression Screening (181213305) Encounter for screening for depression (Z13.31) Active confirmed Problem 67506971 MDD (major depressive disorder), recurrent episode, moderate (F33.1) Active confirmed Problem 373961697 MDD (major depressive disorder), severe (F32.2) Active confirmed Vital Signs Heart Rate 68 /min 09/05/2024 Respiratory Rate 16 /min 09/05/2024 Blood pressure diastolic 69 mm Hg 09/05/2024 Height-cm 157.48 cm 09/05/2024 Weight-kg 91.35 kg 09/05/2024 Height 62.00 in 09/05/2024 Blood pressure systolic 106 mm Hg 09/05/2024 Weight 201.4 lbs 09/05/2024 BMI 36.83 kg/m2 09/05/2024 Encounters Encounter Location Date Provider Diagnosis [facility] [address] [address] 04/11/2024 Molly Mcallitser [facility] [address] [address] 09/05/2024 Molly Mcallister Generalized anxiety disorder F41.1 and MDD (major depressive disorder), severe F32.2 [facility] [address] [address] 09/10/2023 Cami Rice Generalized anxiety disorder F41.1 ; Insomnia due to other mental disorder F51.05 ; Major depressive disorder, recurrent, mild F33.0 and Other fci (current) drug therapy Z79.899 [facility] [address] [address] 02/03/2024 Cami Rice Generalized anxiety disorder F41.1 ; MDD (major depressive disorder), severe F32.2 ; Insomnia due to other mental disorder F51.05 and Other fci (current) drug therapy Z79.899 [facility] [address] [address] 02/24/2024 Cami Rice Generalized anxiety disorder F41.1 ; Major depressive disorder, recurrent, mild F33.0 ; Insomnia due to other mental disorder F51.05 and Other fci (current) drug therapy Z79.899 [facility] [address] [facility] [address] [place] [address] 06/08/2024 Cami Thery Generalized anxiety disorder F41.1 ; Major depressive disorder, recurrent, mild F33.0 ; Insomnia due to other mental disorder F51.05 and Other fci (current) drug therapy Z79.899 [facility] [place] [address] [facility] [address] [facility] [address] [place] [address] 06/29/2024 Cami Thery Generalized anxiety disorder F41.1 ; Major depressive disorder, recurrent, mild F33.0 ; Insomnia due to other mental disorder F51.05 and Other fci (current) drug therapy Z79.899 [facility] [address] [facility] [address] [place] [address] 07/14/2024 Cami Thery Generalized anxiety disorder F41.1 ; MDD (major depressive disorder), recurrent episode, moderate F33.1 ; Insomnia due to other mental disorder F51.05 and Other trial management associate (current) drug therapy Z79.899 [facility] [address] [address] 07/28/2024 Cami Thery Generalized anxiety disorder F41.1 ; MDD (major depressive disorder), recurrent episode, moderate F33.1 ; Insomnia due to other mental disorder F51.05 ; Other trial management associate (current) drug therapy Z79.899 and Encounter for screening for depression Z13.31 [facility] [place] [address] [facility] [address] [address] 08/08/2024 Cami Thery Encounter for screening for depression Z13.31 ; Generalized anxiety disorder F41.1 ; MDD (major depressive disorder), recurrent episode, moderate F33.1 ; Insomnia due to other mental disorder F51.05 ; Other trial management associate (current) drug therapy Z79.899 and Encounter for screening for cardiovascular disorders Z13.6 [facility] [employer] [address] [address] 08/17/2024 Cami Thery Encounter for screening for depression Z13.31 ; Generalized anxiety disorder F41.1 ; MDD (major depressive disorder), recurrent episode, moderate F33.1 ; Insomnia due to other mental disorder F51.05 ; Other trial management associate (current) drug therapy Z79.899 and Encounter for screening for cardiovascular disorders Z13.6 [facility] [address] [place] [address] 08/22/2024 Molly Mcallister Generalized anxiety disorder F41.1 ; MDD (major depressive disorder), recurrent episode, moderate F33.1 and Encounter for screening for depression Z13.31 [facility], [facility] [address] [place] [address] 09/05/2024 Cami Rice Encounter for screening for depression Z13.31 ; Generalized anxiety disorder F41.1 ; MDD (major depressive disorder), recurrent episode, moderate F33.1 ; Insomnia due to other mental disorder F51.05 ; Other fci (current) drug therapy Z79.899 ; Encounter for screening for cardiovascular disorders Z13.6 and Nausea and vomiting, unspecified vomiting type R11.2 [facility], [facility] [address] [place] [address] 10/02/2023 Provider Migration [facility], [facility] [address] [place] [address] 10/03/2023 Provider Migration [facility], [facility] [address] [place] [address] 02/14/2024 Cami Rice [facility], [facility] [address] [place] [address] 02/14/2024 Cami Thercristina [facility], [facility] [address] [place] [address] 04/11/2024 Cami Thercristina [facility], [facility] [address] [place] [address] 04/25/2024 Cami Thercristina [facility], [facility] [address] [place] [address] 06/08/2024 Cami Thercristina [facility], [facility] [address] [place] [address] 02/09/2024 Cami Thercristina [facility], [facility] [address] [place] [address] 02/14/2024 Cami Rice Major depressive disorder, recurrent, mild F33.0 ; Generalized anxiety disorder F41.1 ; Insomnia due to other mental disorder F51.05 ; Other trial management associate (current) drug therapy Z79.899 and Elevated liver enzymes R74.8 [facility], [facility] [address] [place] [address] 02/16/2024 Cami Thercristina [facility], [facility] [address] [place] [address] 02/16/2024 Cami Thery [facility], [facility] [address] [place] [address] 02/18/2024 Cami Thercristina [facility], [facility] [address] [place] [address] 03/02/2024 Cami Thery [facility], [facility] [address] [place] [address] 06/09/2024 Cami Thercristina [facility], [facility] [address] [place] [address] 06/12/2024 Caim Thercristina [facility], [facility] [address] [place] [address] 06/20/2024 Cami Rice Generalized anxiety disorder F41.1 [facility], [facility] [address] [place] [address] 07/07/2024 Cami Thercristina [facility], [facility] [address] [place] [address] 07/10/2024 Cami Thery [facility], [facility] [address] [place] [address] 07/10/2024 Camibeatriz Rice Major depressive disorder, recurrent, mild F33.0 [facility], [facility] [address] [place] [address] 07/27/2024 Cami Thercristina [facility], [facility] [address] [place] [address] 07/28/2024 Cami Thercristina [facility], [facility] [address] [place] [address] 07/28/2024 Cami Thery [facility], [facility] [address] [place] [address] 07/28/2024 Cami Thercristina [facility], [facility] [address] [place] [address] 08/04/2024 Cami Dwayne MDD (major depressiv e disorder), recurrent episode, moderate F33.1 [facility] [address] [place] [address] 08/07/2024 Cami Dwayne [facility] [address] [place] [address] 08/07/2024 Cami Dwayne Generalized anxiety disorder F41.1 [facility] [address] [place] [address] 08/08/2024 [facility]ne [facility] [address] [place] [address] 08/08/2024 [facility] [address] [place] [address] 08/30/2024 Cami Dwayne Generalized anxiety disorder F41.1 Assessments Encounter Date Diagnosis (ICD Code) Assessment Notes Treatment Notes Treatment Clinical Notes Section Notes 06/20/2024 Generalized anxiety disorder (ICD-10 - F41.1) 08/07/2024 Generalized anxiety disorder (ICD-10 - F41.1) 08/04/2024 MDD (major depressive disorder), recurrent episode, moderate (ICD-10 - F33.1) 08/08/2024 Encounter for screening for depression (ICD-10 - Z13.31) 1. Depression- increase depression and anxiety at Zoloft 100 mg dose- been on dose 4 days Will decrease Zoloft 50 mg daily Zoloft 50 mg daily - will titrate as needed hx PT for High tone pelvic dysfunction- no plan or intent schedule to see Guest Associate for chest pain- had test done and heart monitor scheduled- procedure 09/08- bladder biopsy Educated and discuss on medication options educated on all rx refer to therapy - Molly 2. Anxiety- Buspar 10 mg three times a day with a meal - Xanax 0.25 mg twice to three times daily PRN - educated to take for anxiety- reported taken x1 08/07/24 and helped - no refill needed today Vistaril 10 mg twice a day PRN Added 08/07/24 Sleep- sleep hygiene http_s://www.claudia .org/About-Mental -Illness/Mental-H ealth-Conditions http_s://psychcen tral.com/depressi on/the-cognitive- zocpchkj-wp-yatbk ssion#treatments http__s://www.nim .nih.gov/health/ topics/mental-hea [facility]-medications http__s://www.nam i.org/About-Menta l-Illness/Treatme nts/Mental-Health -Medications educated on all medications, benefits, side effects and risk, and educated on depression, anxiety, and ADHD, mood d/o and educated on compliance of medications, metabolic and movement d/o education appointment's, continue therapy discussion with patient about course of treatment and patient instructions. education on serotonin syndrome Discussed and educated pt regarding benzodiazepines are generally not intended for prolonged use and that use can cause tolerance, dependence, depression, and associated memory issues including dementias (this list is not exhaustive). Benzodiazepine use is generally not recommended concurrently with pain medications and/or other controlled substances educated on all medications, benefits, side effects and risk, and educated on depression, anxiety, and ADHD, mood d/o and educated on compliance of medications, metabolic and movement d/o education appointment is, continue therapy discussion with patient about course of treatment and patient instructions. education on serotonin syndrome SSRI/SNRI side effects discussed including but not limited to, gastric upset, nausea, vomiting, diarrhea and/or constipation, weight changes, sexual side effects including loss of libido, increased suicidal thoughts/behavior s in children and young adults, and serotonin syndrome. Medication Management and Follow-Up - Plan: - Schedule follow-up appointments every 1-3 months to monitor the patient's response to the medication regimen. - Reinforce the importance of avoiding recreational drug use due to potential neurotoxicity and interactions with prescribed medications. 07/14/2024 MDD (major depressive disorder), recurrent episode, moderate (ICD-10 - F33.1) Preventing Depression From Coming Back: Care Instructions material was published, Depression Treatment: Care Instructions material was published, Seasonal Affective Disorder: Care Instructions material was published, Learning About How to Get Help During a Mental Health Crisis material was published Depression- Zoloft 50 mg daily start today- cesar titrate as needed in PT for High tone pelvic dysfunction- D/C Viibyrd 10 mg dose- last taken 07/13/24 - passive thoughts last Wednesday and Leda improved today none today no plan or intent schedule to see Guest Associate for chest pain- had test done and heart monitor scheduled Educated and discuss on medication options educated on all rx refer to therapy - Molly Anxiety-Buspar 10 mg three times a day with a meal - Xanax 0.25 mg PRN - educated to take for anxiety Sleep- sleep hygiene http_s://www.claudia .org/About-Mental -Illness/Mental-H ealth-Conditions http_s://psychcen Scorista.rul.com/depressi on/the-cognitive- jtwbzkel-rn-qojnh ssion#treatments http__s://www.nim .nih.gov/health/ topics/mental-hea lth-medications http__s://www.nam i.org/About-Menta l-Illness/Treatme nts/Mental-Health -Medications educated on all medications, benefits, side effects and risk, and educated on depression, anxiety, and ADHD, mood d/o and educated on compliance of medications, metabolic and movement d/o education appointment's, continue therapy discussion with patient about course of treatment and patient instructions. education on serotonin syndrome Discussed and educated pt regarding benzodiazepines are generally not intended for prolonged use and that use can cause tolerance, dependence, depression, and associated memory issues including dementias (this list is not exhaustive). Benzodiazepine use is generally not recommended concurrently with pain medications and/or other controlled substances educated on all medications, benefits, side effects and risk, and educated on depression, anxiety, and ADHD, mood d/o and educated on compliance of medications, metabolic and movement d/o education appointment is, continue therapy discussion with patient about course of treatment and patient instructions. education on serotonin syndrome SSRI/SNRI side effects discussed including but not limited to, gastric upset, nausea, vomiting, diarrhea and/or constipation, weight changes, sexual side effects including loss of libido, increased suicidal thoughts/behavior s in children and young adults, and serotonin syndrome. Medication Management and Follow-Up - Plan: - Schedule follow-up appointments every 1-3 months to monitor the patient's response to the medication regimen. - Reinforce the importance of avoiding recreational drug use due to potential neurotoxicity and interactions with prescribed medications. 07/28/2024 Generalized anxiety disorder (ICD-10 - F41.1) Generalized Anxiety Disorder: Care Instructions material was published, Learning About Generalized Anxiety Disorder material was published, Generalized Anxiety Disorder: Care Instructions material was published, Learning About Generalized Anxiety Disorder material was published, Learning About Anxiety Disorders material was published, Learning About Transcranial Magnetic Stimulation (TMS) material was published, Learning About Generalized Anxiety Disorder material was published, Generalized Anxiety Disorder: Care Instructions material was published, Learning About Anxiety Disorders material was published Depression- improved no refills needed today Zoloft 50 mg daily start today- cesar titrate as needed in PT for High tone pelvic dysfunction- no plan or intent schedule to see Guest Associate for chest pain- had test done and heart monitor scheduled Educated and discuss on medication options educated on all rx refer to therapy - Molly Anxiety-Buspar 10 mg three times a day with a meal - Xanax 0.25 mg PRN - educated to take for anxiety Sleep- sleep hygiene http_s://www.claudia .org/About-Mental -Illness/Mental-H ealth-Conditions http_s://psychLoop Trolley.com/depressi on/the-cognitive- gxsifmzo-jj-xfoko ssion#treatments http__s://www.nim .nih.gov/health/ topics/mental-hea lth-medications http__s://www.nam i.org/About-Menta l-Illness/Treatme nts/Mental-Health -Medications educated on all medications, benefits, side effects and risk, and educated on depression, anxiety, and ADHD, mood d/o and educated on compliance of medications, metabolic and movement d/o education appointment's, continue therapy discussion with patient about course of treatment and patient instructions. education on serotonin syndrome Discussed and educated pt regarding benzodiazepines are generally not intended for prolonged use and that use can cause tolerance, dependence, depression, and associated memory issues including dementias (this list is not exhaustive). Benzodiazepine use is generally not recommended concurrently with pain medications and/or other controlled substances educated on all medications, benefits, side effects and risk, and educated on depression, anxiety, and ADHD, mood d/o and educated on compliance of medications, metabolic and movement d/o education appointment is, continue therapy discussion with patient about course of treatment and patient instructions. education on serotonin syndrome SSRI/SNRI side effects discussed including but not limited to, gastric upset, nausea, vomiting, diarrhea and/or constipation, weight changes, sexual side effects including loss of libido, increased suicidal thoughts/behavior s in children and young adults, and serotonin syndrome. Medication Management and Follow-Up - Plan: - Schedule follow-up appointments every 1-3 months to monitor the patient's response to the medication regimen. - Reinforce the importance of avoiding recreational drug use due to potential neurotoxicity and interactions with prescribed medications. 06/29/2024 Generalized anxiety disorder (ICD-10 - F41.1) Generalized Anxiety Disorder: Care Instructions material was published, Learning About Generalized Anxiety Disorder material was published, Generalized Anxiety Disorder: Care Instructions material was published, Learning About Generalized Anxiety Disorder material was published, Learning About Anxiety Disorders material was published, Learning About Transcranial Magnetic Stimulation (TMS) material was published Depression- Zoloft 50 mg daily been on this ose 4 days- conitnue rx schedule to see Guest Associate today for chest pain- wakes up in night Educated and discuss on medication options educated on all rx refer to therapy - Molly Anxiety-Buspar 10 mg three times a day with a meal - Xanax 0.25 mg PRN (not taking presently) Sleep- sleep hygiene http_s://www.claudia .org/About-Mental -Illness/Mental-H ealth-Conditions http_s://psychcen tral.com/depressi on/the-cognitive- bxckvyrq-kp-phshx ssion#treatments http__s://www.nim .nih.gov/health/ topics/mental-hea lth-medications http__s://www.nam i.org/About-Menta l-Illness/Treatme nts/Mental-Health -Medications educated on all medications, benefits, side effects and risk, and educated on depression, anxiety, and ADHD, mood d/o and educated on compliance of medications, metabolic and movement d/o education appointment's, continue therapy discussion with patient about course of treatment and patient instructions. education on serotonin syndrome Discussed and educated pt regarding benzodiazepines are generally not intended for prolonged use and that use can cause tolerance, dependence, depression, and associated memory issues including dementias (this list is not exhaustive). Benzodiazepine use is generally not recommended concurrently with pain medications and/or other controlled substances educated on all medications, benefits, side effects and risk, and educated on depression, anxiety, and ADHD, mood d/o and educated on compliance of medications, metabolic and movement d/o education appointment is, continue therapy discussion with patient about course of treatment and patient instructions. education on serotonin syndrome SSRI/SNRI side effects discussed including but not limited to, gastric upset, nausea, vomiting, diarrhea and/or constipation, weight changes, sexual side effects including loss of libido, increased suicidal thoughts/behavior s in children and young adults, and serotonin syndrome. Medication Management and Follow-Up - Plan: - Schedule follow-up appointments every 1-3 months to monitor the patient's response to the medication regimen. - Reinforce the importance of avoiding recreational drug use due to potential neurotoxicity and interactions with prescribed medications. 06/08/2024 Generalized anxiety disorder (ICD-10 - F41.1) Generalized Anxiety Disorder: Care Instructions material was published, Learning About Generalized Anxiety Disorder material was published, Generalized Anxiety Disorder: Care Instructions material was published, Learning About Generalized Anxiety Disorder material was published, Learning About Anxiety Disorders material was published, Learning About Transcranial Magnetic Stimulation (TMS) material was published Depression- presently taking Paxil 30 mg daily- educated on Paxil and age [age] years old and may need to decrease dose and switch rx decrease Paxil 20 mg daily for 2 weeks then stop Plan to Add in 2 weeks Zoloft 50 mg daily when stop Paxil Educated and discuss on medication options Add Lamotrigine 25 mg daily for next 2 weeks then increase to Lamotrigine 50 mg daily educated on all rx Lamotrigine lamotrigine has a serious rashes requiring hospitalization and discontinue treatment including Rafa Michael syndrome rare case of toxic epidermal necrolysis and cache related deaths. Incidence with adjunct of epilepsy treatment 0.8% in 2 to 16 years old and 0.3% in adults, bipolar and other mood disorders incidence 0.8% this initial monotherapy and 0.13% as adjunctive treatment. Other risk factor may include concomitant use of valproate acid derivative or exceeding initial lamotrigine does or does as clinician recommendation; most life-threatening rash of occurring first 2 to 8 week of treatment with isolated cases after prolonged treatment; though benign may occur, discontinue treatment at first sign of rash unless clearly not a drug related; TC treatment may not prevent trash from becoming life-threatening or permanently disabling or disfiguring. Comment reaction include, nausea/vomiting, dizziness/vertigo , visual disturbances, somnolence, ataxia, pruritus/rash, pharyngitis, headache, rhinitis, diarrhea, fever, asthenia, insomnia, tremor, abdominal pain, cough, accidental injury, constipation, dysmenorrhea, incoordination, anxiety, seizures, irritability, anorexia, xerostomia, and photosensitivity. Serious reactions include: Rash, severe; Dumont Michael syndrome; toxic epidermal necrosis; injury edema, hypersensitivity reactions. Including fatal, multiple organ failure to safe fatal, rash with eosinophilia systemic symptoms, DIC, neutropenia, leukopenia, thrombocytopenia, pancytopenia, aplastic anemia, hemolytic anemia, i pancreatitis, hepatic failure, rhabdomyolysis, worsening of suicidal ideation, worsening of depression, cleft lip/palate [first trimester use] DO not Change Cosmetic, perfumes or soap for next 4 weeks. The patient was advice to take lamotrigine as prescribed the patient was instructed not to deviate from the prescription dosages. Stop lamotrigine is the first sign of rash. Patient was insisted to inform office if any of the serious side effect develops. d/c Abilify 5 mg at bedtime- r/o chest pain refer to therapy - Molly Anxiety-Buspar 10 mg three times a day with a meal - Xanax 0.25 mg PRN (not taking presently) Sleep- sleep hygiene http_s://www.claudia .org/About-Mental -Illness/Mental-H ealth-Conditions http_s://psychcen [employer].rul.com/depressi on/the-cognitive- jpchbivj-mt-iaego ssion#treatments http__s://www.nim .nih.gov/health/ topics/mental-hea lth-medications http__s://www.nam i.org/About-Menta l-Illness/Treatme nts/Mental-Health -Medications educated on all medications, benefits, side effects and risk, and educated on depression, anxiety, and ADHD, mood d/o and educated on compliance of medications, metabolic and movement d/o education appointment's, continue therapy discussion with patient about course of treatment and patient instructions. education on serotonin syndrome Discussed and educated pt regarding benzodiazepines are generally not intended for prolonged use and that use can cause tolerance, dependence, depression, and associated memory issues including dementias (this list is not exhaustive). Benzodiazepine use is generally not recommended concurrently with pain medications and/or other controlled substances educated on all medications, benefits, side effects and risk, and educated on depression, anxiety, and ADHD, mood d/o and educated on compliance of medications, metabolic and movement d/o education appointment is, continue therapy discussion with patient about course of treatment and patient instructions. education on serotonin syndrome SSRI/SNRI side effects discussed including but not limited to, gastric upset, nausea, vomiting, diarrhea and/or constipation, weight changes, sexual side effects including loss of libido, increased suicidal thoughts/behavior s in children and young adults, and serotonin syndrome. Second generation antipsychotics (SGAs) have metabolic syndrome issues with weight gain, increase in prolactin, increased waist circumference, increased lipids, and increased glucose. Thus routine monitoring of weight, metabolic labs, etc. is indicated. A general rank ordering of antipsychotics that have the greatest to the least risk of metabolic effects is olanzapine, quetiapine, risperidone, ziprasidone, and aripiprazole. However, weight gain can occur with all of these drugs and considerable variability exists among patients receiving the same drug regarding the risk of metabolic effects. Anti-psychotic agents not only increase the risk of metabolic disorder, they also increase the risk of CVA, akathisia, and movement disorders including EPS or tardive dyskinesia (more common with first generation antipsychotics) and more. Medication Management and Follow-Up - Plan: - Schedule follow-up appointments every 1-3 months to monitor the patient's response to the medication regimen. - Reinforce the importance of avoiding recreational drug use due to potential neurotoxicity and interactions with prescribed medications. 07/10/2024 Major depressive disorder, recurrent, mild (ICD-10 - F33.0) 07/14/2024 Generalized anxiety disorder (ICD-10 - F41.1) Generalized Anxiety Disorder: Care Instructions material was published, Learning About Generalized Anxiety Disorder material was published, Generalized Anxiety Disorder: Care Instructions material was published, Learning About Generalized Anxiety Disorder material was published, Learning About Anxiety Disorders material was published, Learning About Transcranial Magnetic Stimulation (TMS) material was published, Learning About Generalized Anxiety Disorder material was published, Generalized Anxiety Disorder: Care Instructions material was published, Learning About Anxiety Disorders material was published Depression- Zoloft 50 mg daily start today- cesar titrate as needed in PT for High tone pelvic dysfunction- D/C Viibyrd 10 mg dose- last taken 07/13/24 - passive thoughts last Wednesday and Leda improved today none today no plan or intent schedule to see [facility] for chest pain- had test done and heart monitor scheduled Educated and discuss on medication options educated on all rx refer to therapy - Molly Anxiety-Buspar 10 mg three times a day with a meal - Xanax 0.25 mg PRN - educated to take for anxiety Sleep- sleep hygiene http_s://www.claudia .org/About-Mental -Illness/Mental-H ealth-Conditions http_s://psychcen [employer].com/depressi on/the-cognitive- qzmlnilq-kg-inolc ssion#treatments http__s://www.nim .nih.gov/health/ topics/mental-hea lth-medications http__s://www.nam i.org/About-Menta l-Illness/Treatme nts/Mental-Health -Medications educated on all medications, benefits, side effects and risk, and educated on depression, anxiety, and ADHD, mood d/o and educated on compliance of medications, metabolic and movement d/o education appointment's, continue therapy discussion with patient about course of treatment and patient instructions. education on serotonin syndrome Discussed and educated pt regarding benzodiazepines are generally not intended for prolonged use and that use can cause tolerance, dependence, depression, and associated memory issues including dementias (this list is not exhaustive). Benzodiazepine use is generally not recommended concurrently with pain medications and/or other controlled substances educated on all medications, benefits, side effects and risk, and educated on depression, anxiety, and ADHD, mood d/o and educated on compliance of medications, metabolic and movement d/o education appointment is, continue therapy discussion with patient about course of treatment and patient instructions. education on serotonin syndrome SSRI/SNRI side effects discussed including but not limited to, gastric upset, nausea, vomiting, diarrhea and/or constipation, weight changes, sexual side effects including loss of libido, increased suicidal thoughts/behavior s in children and young adults, and serotonin syndrome. Medication Management and Follow-Up - Plan: - Schedule follow-up appointments every 1-3 months to monitor the patient's response to the medication regimen. - Reinforce the importance of avoiding recreational drug use due to potential neurotoxicity and interactions with prescribed medications. 02/03/2024 MDD (major depressive disorder), severe (ICD-10 - F32.2) Learning About Depression Screening material was published, Learning About Antidepressants material was published currently taking Buspar 10 mg twice a day, Paxil 30 mg daily, and Xanax 0.25 mg PRN (not taking presently) Depression- Paxil 30 mg daily- educated on Paxil and age [age] years old and may need to decrease dose and switch rx in near future - patient tolerating rx - no refill needed on Paxil today Educated and discuss on medication options will Add Abilify 5 mg at bedtime refer to therapy - Molly or Maye Anxiety- Increase Buspar 10 mg three times a day with a meal - no refill needed today Xanax 0.25 mg PRN (not taking presently) Sleep- sleep hygiene http_s://www.claudia .org/About-Mental -Illness/Mental-H ealth-Conditions http_s://psychcen [employer].com/depressi on/the-cognitive- riangcqd-oh-vctgp ssion#treatments http__s://www.[facility].nih.gov/health/ topics/mental-hea lth-medications http__s://www.nam i.org/About-Menta l-Illness/Treatme nts/Mental-Health -Medications educated on all medications, benefits, side effects and risk, and educated on depression, anxiety, and ADHD, mood d/o and educated on compliance of medications, metabolic and movement d/o education appointment's, continue therapy discussion with patient about course of treatment and patient instructions. education on serotonin syndrome Discussed and educated pt regarding benzodiazepines are generally not intended for prolonged use and that use can cause tolerance, dependence, depression, and associated memory issues including dementias (this list is not exhaustive). Benzodiazepine use is generally not recommended concurrently with pain medications and/or other controlled substances educated on all medications, benefits, side effects and risk, and educated on depression, anxiety, and ADHD, mood d/o and educated on compliance of medications, metabolic and movement d/o education appointment is, continue therapy discussion with patient about course of treatment and patient instructions. education on serotonin syndrome SSRI/SNRI side effects discussed including but not limited to, gastric upset, nausea, vomiting, diarrhea and/or constipation, weight changes, sexual side effects including loss of libido, increased suicidal thoughts/behavior s in children and young adults, and serotonin syndrome. Second generation antipsychotics (SGAs) have metabolic syndrome issues with weight gain, increase in prolactin, increased waist circumference, increased lipids, and increased glucose. Thus routine monitoring of weight, metabolic labs, etc. is indicated. A general rank ordering of antipsychotics that have the greatest to the least risk of metabolic effects is olanzapine, quetiapine, risperidone, ziprasidone, and aripiprazole. However, weight gain can occur with all of these drugs and considerable variability exists among patients receiving the same drug regarding the risk of metabolic effects. Anti-psychotic agents not only increase the risk of metabolic disorder, they also increase the risk of CVA, akathisia, and movement disorders including EPS or tardive dyskinesia (more common with first generation antipsychotics) and more. Medication Management and Follow-Up - Plan: - Schedule follow-up appointments every 1-3 months to monitor the patient's response to the medication regimen. - Reinforce the importance of avoiding recreational drug use due to potential neurotoxicity and interactions with prescribed medications. 02/14/2024 Major depressive disorder, recurrent, mild (ICD-10 - F33.0) 02/24/2024 Major depressive disorder, recurrent, mild (ICD-10 - F33.0) Depression- Paxil 30 mg daily- educated on Paxil and age [age] years old and may need to decrease dose and switch rx in near future - patient tolerating rx - no refill needed on Paxil today- plan to taper off Paxil - rx in near future Educated and discuss on medication options Abilify 5 mg at bedtime- improved depression s/s refer to therapy - Molly or Maye Anxiety-Buspar 10 mg three times a day with a meal - no refill needed today Xanax 0.25 mg PRN (not taking presently) Sleep- sleep hygiene http_s://www.claudia .org/About-Mental -Illness/Mental-H ealth-Conditions http_s://psychcen tral.com/depressi on/the-cognitive- uerxedln-kz-mpcbc ssion#treatments http__s://www.nim h.nih.gov/health/ topics/mental-hea lth-medications http__s://www.nam i.org/About-Menta l-Illness/Treatme nts/Mental-Health -Medications educated on all medications, benefits, side effects and risk, and educated on depression, anxiety, and ADHD, mood d/o and educated on compliance of medications, metabolic and movement d/o education appointment's, continue therapy discussion with patient about course of treatment and patient instructions. education on serotonin syndrome Discussed and educated pt regarding benzodiazepines are generally not intended for prolonged use and that use can cause tolerance, dependence, depression, and associated memory issues including dementias (this list is not exhaustive). Benzodiazepine use is generally not recommended concurrently with pain medications and/or other controlled substances educated on all medications, benefits, side effects and risk, and educated on depression, anxiety, and ADHD, mood d/o and educated on compliance of medications, metabolic and movement d/o education appointment is, continue therapy discussion with patient about course of treatment and patient instructions. education on serotonin syndrome SSRI/SNRI side effects discussed including but not limited to, gastric upset, nausea, vomiting, diarrhea and/or constipation, weight changes, sexual side effects including loss of libido, increased suicidal thoughts/behavior s in children and young adults, and serotonin syndrome. Second generation antipsychotics (SGAs) have metabolic syndrome issues with weight gain, increase in prolactin, increased waist circumference, increased lipids, and increased glucose. Thus routine monitoring of weight, metabolic labs, etc. is indicated. A general rank ordering of antipsychotics that have the greatest to the least risk of metabolic effects is olanzapine, quetiapine, risperidone, ziprasidone, and aripiprazole. However, weight gain can occur with all of these drugs and considerable variability exists among patients receiving the same drug regarding the risk of metabolic effects. Anti-psychotic agents not only increase the risk of metabolic disorder, they also increase the risk of CVA, akathisia, and movement disorders including EPS or tardive dyskinesia (more common with first generation antipsychotics) and more. Medication Management and Follow-Up - Plan: - Schedule follow-up appointments every 1-3 months to monitor the patient's response to the medication regimen. - Reinforce the importance of avoiding recreational drug use due to potential neurotoxicity and interactions with prescribed medications. 02/24/2024 Generalized anxiety disorder (ICD-10 - F41.1) Generalized Anxiety Disorder: Care Instructions material was published, Learning About Generalized Anxiety Disorder material was published Depression- Paxil 30 mg daily- educated on Paxil and age [age] years old and may need to decrease dose and switch rx in near future - patient tolerating rx - no refill needed on Paxil today- plan to taper off Paxil - rx in near future Educated and discuss on medication options Abilify 5 mg at bedtime- improved depression s/s refer to therapy - Molly or Maye Anxiety-Buspar 10 mg three times a day with a meal - no refill needed today Xanax 0.25 mg PRN (not taking presently) Sleep- sleep hygiene http_s://www.claudia .org/About-Mental -Illness/Mental-H ealth-Conditions http_s://psychcen tral.com/depressi on/the-cognitive- xofihnrz-mi-cvooe ssion#treatments http__s://www.nim .nih.gov/health/ topics/mental-hea lth-medications http__s://www.nam i.org/About-Menta l-Illness/Treatme nts/Mental-Health -Medications educated on all medications, benefits, side effects and risk, and educated on depression, anxiety, and ADHD, mood d/o and educated on compliance of medications, metabolic and movement d/o education appointment's, continue therapy discussion with patient about course of treatment and patient instructions. education on serotonin syndrome Discussed and educated pt regarding benzodiazepines are generally not intended for prolonged use and that use can cause tolerance, dependence, depression, and associated memory issues including dementias (this list is not exhaustive). Benzodiazepine use is generally not recommended concurrently with pain medications and/or other controlled substances educated on all medications, benefits, side effects and risk, and educated on depression, anxiety, and ADHD, mood d/o and educated on compliance of medications, metabolic and movement d/o education appointment is, continue therapy discussion with patient about course of treatment and patient instructions. education on serotonin syndrome SSRI/SNRI side effects discussed including but not limited to, gastric upset, nausea, vomiting, diarrhea and/or constipation, weight changes, sexual side effects including loss of libido, increased suicidal thoughts/behavior s in children and young adults, and serotonin syndrome. Second generation antipsychotics (SGAs) have metabolic syndrome issues with weight gain, increase in prolactin, increased waist circumference, increased lipids, and increased glucose. Thus routine monitoring of weight, metabolic labs, etc. is indicated. A general rank ordering of antipsychotics that have the greatest to the least risk of metabolic effects is olanzapine, quetiapine, risperidone, ziprasidone, and aripiprazole. However, weight gain can occur with all of these drugs and considerable variability exists among patients receiving the same drug regarding the risk of metabolic effects. Anti-psychotic agents not only increase the risk of metabolic disorder, they also increase the risk of CVA, akathisia, and movement disorders including EPS or tardive dyskinesia (more common with first generation antipsychotics) and more. Medication Management and Follow-Up - Plan: - Schedule follow-up appointments every 1-3 months to monitor the patient's response to the medication regimen. - Reinforce the importance of avoiding recreational drug use due to potential neurotoxicity and interactions with prescribed medications. 08/17/2024 Encounter for screening for depression (ICD-10 - Z13.31) 1. Depression- continue depression and anxiety d/c Zoloft 50 mg daily- diarrhea and weight loss discuss with patient Paxil and over age 58, benefits, risk, side effects, and monitor - see director records management and heart monitor scheduled discuss risk QTC/QT interval risk pateint reported felt the best on Paxil discuss cardiovascular risk Discuss and educated onTrintellix and Auvelity options Pateint agreed to Trintellix - will start Trintellix 5 mg daily for 2 week then increase Trintellix 10 mg daily - samples given hx PT for High tone pelvic dysfunction- no plan or intent schedule to see [facility] for chest pain- had test done and heart monitor scheduled- procedure - bladder biopsy schedule endometrosis biopsy schedule Educated and discuss on medication options educated on all rx refer to therapy Matilde Barnes 2. Anxiety- Buspar 10 mg three times a day with a meal - Xanax 0.25 mg twice to three times daily PRN - educated to take for anxiety- reported taken x1 08/07/24 and helped - no refill needed today Patient reported Vistaril 10 mg twice a day PRN has helped and lasted longer than Xanax and would like to increase dose Increase Vistaril 25 mg three times a day PRN for anxiety Sleep- sleep hygiene http_s://www.claudia .org/About-Mental -Illness/Mental-H ealth-Conditions http_s://psychcen tral.com/depressi on/the-cognitive- yhceodjy-nx-exojs ssion#treatments http__s://www.[facility].nih.gov/health/ topics/mental-hea [facility]-medications http__s://www.nam i.org/About-Menta l-Illness/Treatme nts/Mental-Health -Medications educated on all medications, benefits, side effects and risk, and educated on depression, anxiety, and ADHD, mood d/o and educated on compliance of medications, metabolic and movement d/o education appointment's, continue therapy discussion with patient about course of treatment and patient instructions. education on serotonin syndrome Discussed and educated pt regarding benzodiazepines are generally not intended for prolonged use and that use can cause tolerance, dependence, depression, and associated memory issues including dementias (this list is not exhaustive). Benzodiazepine use is generally not recommended concurrently with pain medications and/or other controlled substances educated on all medications, benefits, side effects and risk, and educated on depression, anxiety, and ADHD, mood d/o and educated on compliance of medications, metabolic and movement d/o education appointment is, continue therapy discussion with patient about course of treatment and patient instructions. education on serotonin syndrome SSRI/SNRI side effects discussed including but not limited to, gastric upset, nausea, vomiting, diarrhea and/or constipation, weight changes, sexual side effects including loss of libido, increased suicidal thoughts/behavior s in children and young adults, and serotonin syndrome. Medication Management and Follow-Up - Plan: - Schedule follow-up appointments every 1-3 months to monitor the patient's response to the medication regimen. - Reinforce the importance of avoiding recreational drug use due to potential neurotoxicity and interactions with prescribed medications. 08/22/2024 MDD (major depressive disorder), recurrent episode, moderate (ICD-10 - F33.1) 08/30/2024 Generalized anxiety disorder (ICD-10 - F41.1) 09/05/2024 Generalized anxiety disorder (ICD-10 - F41.1) 09/05/2024 MDD (major depressive disorder), severe (ICD-10 - F32.2) 08/22/2024 Generalized anxiety disorder (ICD-10 - F41.1) 09/05/2024 Encounter for screening for depression (ICD-10 - Z13.31) 1. Depression- continue depression and anxiety discuss with patient Paxil and over age 58, benefits, risk, side effects, and monitor - see director records management and heart monitor scheduled discuss risk QTC/QT interval risk pateint reported felt the best on Paxil discuss cardiovascular risk Discuss and educated onTrintellix and Auvelity options Pateint agreed to Trintellix - will continue Trintellix 5 mg daily samples given Add Zofran 4 mg twice a day as needed for nausea hx PT for High tone pelvic dysfunction- no plan or intent schedule to see [facility] Associate for chest pain- had test done and heart monitor scheduled- procedure - bladder biopsy schedule endometrosis biopsy schedule Educated and discuss on medication options educated on all rx refer to therapy - Molly 2. Anxiety- Buspar 10 mg three times a day with a meal - Xanax 0.25 mg twice to three times daily PRN - reported not taking presently Patient reported Vistaril 10 mg three times a day PRN has helped Sleep- sleep hygiene http_s://www.claudia .org/About-Mental -Illness/Mental-H ealth-Conditions http_s://[employer]/depressi on/the-cognitive- ummkjjsv-er-gaedd ssion#treatments http__s://www.nim .nih.gov/health/ topics/mental-hea lth-medications http__s://www.nam i.org/About-Menta l-Illness/Treatme nts/Mental-Health -Medications educated on all medications, benefits, side effects and risk, and educated on depression, anxiety, and ADHD, mood d/o and educated on compliance of medications, metabolic and movement d/o education appointment's, continue therapy discussion with patient about course of treatment and patient instructions. education on serotonin syndrome Discussed and educated pt regarding benzodiazepines are generally not intended for prolonged use and that use can cause tolerance, dependence, depression, and associated memory issues including dementias (this list is not exhaustive). Benzodiazepine use is generally not recommended concurrently with pain medications and/or other controlled substances educated on all medications, benefits, side effects and risk, and educated on depression, anxiety, and ADHD, mood d/o and educated on compliance of medications, metabolic and movement d/o education appointment is, continue therapy discussion with patient about course of treatment and patient instructions. education on serotonin syndrome SSRI/SNRI side effects discussed including but not limited to, gastric upset, nausea, vomiting, diarrhea and/or constipation, weight changes, sexual side effects including loss of libido, increased suicidal thoughts/behavior s in children and young adults, and serotonin syndrome. Medication Management and Follow-Up - Plan: - Schedule follow-up appointments every 1-3 months to monitor the patient's response to the medication regimen. - Reinforce the importance of avoiding recreational drug use due to potential neurotoxicity and interactions with prescribed medications. 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 - F51.05) 09/10/2023 Other [facility] (current) drug therapy (ICD-10 - Z79.899) 02/03/2024 Generalized anxiety disorder (ICD-10 - F41.1) Generalized Anxiety Disorder: Care Instructions material was published, Learning About Generalized Anxiety Disorder material was published currently taking Buspar 10 mg twice a day, Paxil 30 mg daily, and Xanax 0.25 mg PRN (not taking presently) Depression- Paxil 30 mg daily- educated on Paxil and age [age] years old and may need to decrease dose and switch rx in near future - patient tolerating rx - no refill needed on Paxil today Educated and discuss on medication options will Add Abilify 5 mg at bedtime refer to therapy - Molly or Maye Anxiety- Increase Buspar 10 mg three times a day with a meal - no refill needed today Xanax 0.25 mg PRN (not taking presently) Sleep- sleep hygiene http_s://www.claudia .org/About-Mental -Illness/Mental-H ealth-Conditions http_s://psychcen tral.com/depressi on/the-cognitive- arfmcdmn-yk-qrvtv ssion#treatments http__s://www.nim h.nih.gov/health/ topics/mental-hea lth-medications http__s://www.nam i.org/About-Menta l-Illness/Treatme nts/Mental-Health -Medications educated on all medications, benefits, side effects and risk, and educated on depression, anxiety, and ADHD, mood d/o and educated on compliance of medications, metabolic and movement d/o education appointment's, continue therapy discussion with patient about course of treatment and patient instructions. education on serotonin syndrome Discussed and educated pt regarding benzodiazepines are generally not intended for prolonged use and that use can cause tolerance, dependence, depression, and associated memory issues including dementias (this list is not exhaustive). Benzodiazepine use is generally not recommended concurrently with pain medications and/or other controlled substances educated on all medications, benefits, side effects and risk, and educated on depression, anxiety, and ADHD, mood d/o and educated on compliance of medications, metabolic and movement d/o education appointment is, continue therapy discussion with patient about course of treatment and patient instructions. education on serotonin syndrome SSRI/SNRI side effects discussed including but not limited to, gastric upset, nausea, vomiting, diarrhea and/or constipation, weight changes, sexual side effects including loss of libido, increased suicidal thoughts/behavior s in children and young adults, and serotonin syndrome. Second generation antipsychotics (SGAs) have metabolic syndrome issues with weight gain, increase in prolactin, increased waist circumference, increased lipids, and increased glucose. Thus routine monitoring of weight, metabolic labs, etc. is indicated. A general rank ordering of antipsychotics that have the greatest to the least risk of metabolic effects is olanzapine, quetiapine, risperidone, ziprasidone, and aripiprazole. However, weight gain can occur with all of these drugs and considerable variability exists among patients receiving the same drug regarding the risk of metabolic effects. Anti-psychotic agents not only increase the risk of metabolic disorder, they also increase the risk of CVA, akathisia, and movement disorders including EPS or tardive dyskinesia (more common with first generation antipsychotics) and more. Medication Management and Follow-Up - Plan: - Schedule follow-up appointments every 1-3 months to monitor the patient's response to the medication regimen. - Reinforce the importance of avoiding recreational drug use due to potential neurotoxicity and interactions with prescribed medications. 02/03/2024 Insomnia due to other mental disorder (ICD-10 - F51.05) currently taking Buspar 10 mg twice a day, Paxil 30 mg daily, and Xanax 0.25 mg PRN (not taking presently) Depression- Paxil 30 mg daily- educated on Paxil and age [age] years old and may need to decrease dose and switch rx in near future - patient tolerating rx - no refill needed on Paxil today Educated and discuss on medication options will Add Abilify 5 mg at bedtime refer to therapy - Molly or Maye Anxiety- Increase Buspar 10 mg three times a day with a meal - no refill needed today Xanax 0.25 mg PRN (not taking presently) Sleep- sleep hygiene http_s://www.claudia .org/About-Mental -Illness/Mental-H ealth-Conditions http_s://psychcen [employer].com/depressi on/the-cognitive- lxdinfwu-mx-pczrk ssion#treatments http__s://www.[facility].nih.gov/health/ topics/mental-hea lth-medications http__s://www.nam i.org/About-Menta l-Illness/Treatme nts/Mental-Health -Medications educated on all medications, benefits, side effects and risk, and educated on depression, anxiety, and ADHD, mood d/o and educated on compliance of medications, metabolic and movement d/o education appointment's, continue therapy discussion with patient about course of treatment and patient instructions. education on serotonin syndrome Discussed and educated pt regarding benzodiazepines are generally not intended for prolonged use and that use can cause tolerance, dependence, depression, and associated memory issues including dementias (this list is not exhaustive). Benzodiazepine use is generally not recommended concurrently with pain medications and/or other controlled substances educated on all medications, benefits, side effects and risk, and educated on depression, anxiety, and ADHD, mood d/o and educated on compliance of medications, metabolic and movement d/o education appointment is, continue therapy discussion with patient about course of treatment and patient instructions. education on serotonin syndrome SSRI/SNRI side effects discussed including but not limited to, gastric upset, nausea, vomiting, diarrhea and/or constipation, weight changes, sexual side effects including loss of libido, increased suicidal thoughts/behavior s in children and young adults, and serotonin syndrome. Second generation antipsychotics (SGAs) have metabolic syndrome issues with weight gain, increase in prolactin, increased waist circumference, increased lipids, and increased glucose. Thus routine monitoring of weight, metabolic labs, etc. is indicated. A general rank ordering of antipsychotics that have the greatest to the least risk of metabolic effects is olanzapine, quetiapine, risperidone, ziprasidone, and aripiprazole. However, weight gain can occur with all of these drugs and considerable variability exists among patients receiving the same drug regarding the risk of metabolic effects. Anti-psychotic agents not only increase the risk of metabolic disorder, they also increase the risk of CVA, akathisia, and movement disorders including EPS or tardive dyskinesia (more common with first generation antipsychotics) and more. Medication Management and Follow-Up - Plan: - Schedule follow-up appointments every 1-3 months to monitor the patient's response to the medication regimen. - Reinforce the importance of avoiding recreational drug use due to potential neurotoxicity and interactions with prescribed medications. 09/05/2024 Generalized anxiety disorder (ICD-10 - F41.1) Generalized Anxiety Disorder: Care Instructions material was published, Learning About Generalized Anxiety Disorder material was published, Generalized Anxiety Disorder: Care Instructions material was published, Learning About Generalized Anxiety Disorder material was published, Learning About Anxiety Disorders material was published, Learning About Transcranial Magnetic Stimulation (TMS) material was published, Learning About Generalized Anxiety Disorder material was published, Generalized Anxiety Disorder: Care Instructions material was published, Learning About Anxiety Disorders material was published 1. Depression- continue depression and anxiety discuss with patient Paxil and over age 60, benefits, risk, side effects, and monitor - see director records management and heart monitor scheduled discuss risk QTC/QT interval risk pateint reported felt the best on Paxil discuss cardiovascular risk Discuss and educated onTrintellix and Auvelity options Pateint agreed to Trintellix - will continue Trintellix 5 mg daily samples given Add Zofran 4 mg twice a day as needed for nausea hx PT for High tone pelvic dysfunction- no plan or intent schedule to see [facility] Associate for chest pain- had test done and heart monitor scheduled- procedure - bladder biopsy schedule endometrosis biopsy schedule Educated and discuss on medication options educated on all rx refer to therapy Matilde Barnes 2. Anxiety- Buspar 10 mg three times a day with a meal - Xanax 0.25 mg twice to three times daily PRN - reported not taking presently Patient reported Vistaril 10 mg three times a day PRN has helped Sleep- sleep hygiene http_s://www.claudia .org/About-Mental -Illness/Mental-H ealth-Conditions http_s://psychcen tral.com/depressi on/the-cognitive- mnxnealr-oa-zgmoq ssion#treatments http__s://www.nim h.nih.gov/health/ topics/mental-hea [facility]-medications http__s://www.nam i.org/About-Menta l-Illness/Treatme nts/Mental-Health -Medications educated on all medications, benefits, side effects and risk, and educated on depression, anxiety, and ADHD, mood d/o and educated on compliance of medications, metabolic and movement d/o education appointment's, continue therapy discussion with patient about course of treatment and patient instructions. education on serotonin syndrome Discussed and educated pt regarding benzodiazepines are generally not intended for prolonged use and that use can cause tolerance, dependence, depression, and associated memory issues including dementias (this list is not exhaustive). Benzodiazepine use is generally not recommended concurrently with pain medications and/or other controlled substances educated on all medications, benefits, side effects and risk, and educated on depression, anxiety, and ADHD, mood d/o and educated on compliance of medications, metabolic and movement d/o education appointment is, continue therapy discussion with patient about course of treatment and patient instructions. education on serotonin syndrome SSRI/SNRI side effects discussed including but not limited to, gastric upset, nausea, vomiting, diarrhea and/or constipation, weight changes, sexual side effects including loss of libido, increased suicidal thoughts/behavior s in children and young adults, and serotonin syndrome. Medication Management and Follow-Up - Plan: - Schedule follow-up appointments every 1-3 months to monitor the patient's response to the medication regimen. - Reinforce the importance of avoiding recreational drug use due to potential neurotoxicity and interactions with prescribed medications. 08/17/2024 Generalized anxiety disorder (ICD-10 - F41.1) Generalized Anxiety Disorder: Care Instructions material was published, Learning About Generalized Anxiety Disorder material was published, Generalized Anxiety Disorder: Care Instructions material was published, Learning About Generalized Anxiety Disorder material was published, Learning About Anxiety Disorders material was published, Learning About Transcranial Magnetic Stimulation (TMS) material was published, Learning About Generalized Anxiety Disorder material was published, Generalized Anxiety Disorder: Care Instructions material was published, Learning About Anxiety Disorders material was published 1. Depression- continue depression and anxiety d/c Zoloft 50 mg daily- diarrhea and weight loss discuss with patient Paxil and over age 60, benefits, risk, side effects, and monitor - see director records management and heart monitor scheduled discuss risk QTC/QT interval risk pateint reported felt the best on Paxil discuss cardiovascular risk Discuss and educated onTrintellix and Auvelity options Pateint agreed to Trintellix - will start Trintellix 5 mg daily for 2 week then increase Trintellix 10 mg daily - samples given hx PT for High tone pelvic dysfunction- no plan or intent schedule to see [facility] Associate for chest pain- had test done and heart monitor scheduled- procedure - bladder biopsy schedule endometrosis biopsy schedule Educated and discuss on medication options educated on all rx refer to therapy - Molly 2. Anxiety- Buspar 10 mg three times a day with a meal - Xanax 0.25 mg twice to three times daily PRN - educated to take for anxiety- reported taken x1 08/07/24 and helped - no refill needed today Patient reported Vistaril 10 mg twice a day PRN has helped and lasted longer than Xanax and would like to increase dose Increase Vistaril 25 mg three times a day PRN for anxiety Sleep- sleep hygiene http_s://www.claudia .org/About-Mental -Illness/Mental-H ealth-Conditions http_s://[employer]/depressi on/the-cognitive- kjagznzi-ok-hhctv ssion#treatments http__s://www.nim .nih.gov/health/ topics/mental-hea lth-medications http__s://www.nam i.org/About-Menta l-Illness/Treatme nts/Mental-Health -Medications educated on all medications, benefits, side effects and risk, and educated on depression, anxiety, and ADHD, mood d/o and educated on compliance of medications, metabolic and movement d/o education appointment's, continue therapy discussion with patient about course of treatment and patient instructions. education on serotonin syndrome Discussed and educated pt regarding benzodiazepines are generally not intended for prolonged use and that use can cause tolerance, dependence, depression, and associated memory issues including dementias (this list is not exhaustive). Benzodiazepine use is generally not recommended concurrently with pain medications and/or other controlled substances educated on all medications, benefits, side effects and risk, and educated on depression, anxiety, and ADHD, mood d/o and educated on compliance of medications, metabolic and movement d/o education appointment is, continue therapy discussion with patient about course of treatment and patient instructions. education on serotonin syndrome SSRI/SNRI side effects discussed including but not limited to, gastric upset, nausea, vomiting, diarrhea and/or constipation, weight changes, sexual side effects including loss of libido, increased suicidal thoughts/behavior s in children and young adults, and serotonin syndrome. Medication Management and Follow-Up - Plan: - Schedule follow-up appointments every 1-3 months to monitor the patient's response to the medication regimen. - Reinforce the importance of avoiding recreational drug use due to potential neurotoxicity and interactions with prescribed medications. 02/24/2024 Insomnia due to other mental disorder (ICD-10 - F51.05) Depression- Paxil 30 mg daily- educated on Paxil and age [age] years old and may need to decrease dose and switch rx in near future - patient tolerating rx - no refill needed on Paxil today- plan to taper off Paxil - rx in near future Educated and discuss on medication options Abilify 5 mg at bedtime- improved depression s/s refer to therapy - Molly or Maye Anxiety-Buspar 10 mg three times a day with a meal - no refill needed today Xanax 0.25 mg PRN (not taking presently) Sleep- sleep hygiene http_s://www.claudia .org/About-Mental -Illness/Mental-H ealth-Conditions http_s://psychcen [employer]/depressi on/the-cognitive- hhskvzal-ue-tadrp ssion#treatments http__s://www.nim h.nih.gov/health/ topics/mental-hea lth-medications http__s://www.nam i.org/About-Menta l-Illness/Treatme nts/Mental-Health -Medications educated on all medications, benefits, side effects and risk, and educated on depression, anxiety, and ADHD, mood d/o and educated on compliance of medications, metabolic and movement d/o education appointment's, continue therapy discussion with patient about course of treatment and patient instructions. education on serotonin syndrome Discussed and educated pt regarding benzodiazepines are generally not intended for prolonged use and that use can cause tolerance, dependence, depression, and associated memory issues including dementias (this list is not exhaustive). Benzodiazepine use is generally not recommended concurrently with pain medications and/or other controlled substances educated on all medications, benefits, side effects and risk, and educated on depression, anxiety, and ADHD, mood d/o and educated on compliance of medications, metabolic and movement d/o education appointment is, continue therapy discussion with patient about course of treatment and patient instructions. education on serotonin syndrome SSRI/SNRI side effects discussed including but not limited to, gastric upset, nausea, vomiting, diarrhea and/or constipation, weight changes, sexual side effects including loss of libido, increased suicidal thoughts/behavior s in children and young adults, and serotonin syndrome. Second generation antipsychotics (SGAs) have metabolic syndrome issues with weight gain, increase in prolactin, increased waist circumference, increased lipids, and increased glucose. Thus routine monitoring of weight, metabolic labs, etc. is indicated. A general rank ordering of antipsychotics that have the greatest to the least risk of metabolic effects is olanzapine, quetiapine, risperidone, ziprasidone, and aripiprazole. However, weight gain can occur with all of these drugs and considerable variability exists among patients receiving the same drug regarding the risk of metabolic effects. Anti-psychotic agents not only increase the risk of metabolic disorder, they also increase the risk of CVA, akathisia, and movement disorders including EPS or tardive dyskinesia (more common with first generation antipsychotics) and more. Medication Management and Follow-Up - Plan: - Schedule follow-up appointments every 1-3 months to monitor the patient's response to the medication regimen. - Reinforce the importance of avoiding recreational drug use due to potential neurotoxicity and interactions with prescribed medications. 02/14/2024 Generalized anxiety disorder (ICD-10 - F41.1) 07/14/2024 Insomnia due to other mental disorder (ICD-10 - F51.05) Depression- Zoloft 50 mg daily start today- cesar titrate as needed in PT for High tone pelvic dysfunction- D/C Viibyrd 10 mg dose- last taken 07/13/24 - passive thoughts last Wednesday and Wednesday improved today none today no plan or intent schedule to see [facility] Associate for chest pain- had test done and heart monitor scheduled Educated and discuss on medication options educated on all rx refer to therapy - Molly Anxiety-Buspar 10 mg three times a day with a meal - Xanax 0.25 mg PRN - educated to take for anxiety Sleep- sleep hygiene http_s://www.claudia .org/About-Mental -Illness/Mental-H ealth-Conditions http_s://psychcen tral.com/depressi on/the-cognitive- lssewcuq-yg-xrsvz ssion#treatments http__s://www.nim h.nih.gov/health/ topics/mental-hea [facility]-medications http__s://www.nam i.org/About-Menta l-Illness/Treatme nts/Mental-Health -Medications educated on all medications, benefits, side effects and risk, and educated on depression, anxiety, and ADHD, mood d/o and educated on compliance of medications, metabolic and movement d/o education appointment's, continue therapy discussion with patient about course of treatment and patient instructions. education on serotonin syndrome Discussed and educated pt regarding benzodiazepines are generally not intended for prolonged use and that use can cause tolerance, dependence, depression, and associated memory issues including dementias (this list is not exhaustive). Benzodiazepine use is generally not recommended concurrently with pain medications and/or other controlled substances educated on all medications, benefits, side effects and risk, and educated on depression, anxiety, and ADHD, mood d/o and educated on compliance of medications, metabolic and movement d/o education appointment is, continue therapy discussion with patient about course of treatment and patient instructions. education on serotonin syndrome SSRI/SNRI side effects discussed including but not limited to, gastric upset, nausea, vomiting, diarrhea and/or constipation, weight changes, sexual side effects including loss of libido, increased suicidal thoughts/behavior s in children and young adults, and serotonin syndrome. Medication Management and Follow-Up - Plan: - Schedule follow-up appointments every 1-3 months to monitor the patient's response to the medication regimen. - Reinforce the importance of avoiding recreational drug use due to potential neurotoxicity and interactions with prescribed medications. 06/29/2024 Major depressive disorder, recurrent, mild (ICD-10 - F33.0) Preventing Depression From Coming Back: Care Instructions material was published, Seasonal Affective Disorder: Care Instructions material was published, Depression Treatment: Care Instructions material was published Depression- Zoloft 50 mg daily been on this ose 4 days- conitnue rx schedule to see Guest Associate today for chest pain- wakes up in night Educated and discuss on medication options educated on all rx refer to therapy - Molly Anxiety-Buspar 10 mg three times a day with a meal - Xanax 0.25 mg PRN (not taking presently) Sleep- sleep hygiene http_s://www.claudia .org/About-Mental -Illness/Mental-H ealth-Conditions http_s://psychcen [employer].com/depressi on/the-cognitive- ktlqilce-hx-zsrjv ssion#treatments http__s://www.[facility].nih.gov/health/ topics/mental-hea lth-medications http__s://www.nam i.org/About-Menta l-Illness/Treatme nts/Mental-Health -Medications educated on all medications, benefits, side effects and risk, and educated on depression, anxiety, and ADHD, mood d/o and educated on compliance of medications, metabolic and movement d/o education appointment's, continue therapy discussion with patient about course of treatment and patient instructions. education on serotonin syndrome Discussed and educated pt regarding benzodiazepines are generally not intended for prolonged use and that use can cause tolerance, dependence, depression, and associated memory issues including dementias (this list is not exhaustive). Benzodiazepine use is generally not recommended concurrently with pain medications and/or other controlled substances educated on all medications, benefits, side effects and risk, and educated on depression, anxiety, and ADHD, mood d/o and educated on compliance of medications, metabolic and movement d/o education appointment is, continue therapy discussion with patient about course of treatment and patient instructions. education on serotonin syndrome SSRI/SNRI side effects discussed including but not limited to, gastric upset, nausea, vomiting, diarrhea and/or constipation, weight changes, sexual side effects including loss of libido, increased suicidal thoughts/behavior s in children and young adults, and serotonin syndrome. Medication Management and Follow-Up - Plan: - Schedule follow-up appointments every 1-3 months to monitor the patient's response to the medication regimen. - Reinforce the importance of avoiding recreational drug use due to potential neurotoxicity and interactions with prescribed medications. 06/08/2024 Major depressive disorder, recurrent, mild (ICD-10 - F33.0) Preventing Depression From Coming Back: Care Instructions material was published, Seasonal Affective Disorder: Care Instructions material was published, Depression Treatment: Care Instructions material was published Depression- presently taking Paxil 30 mg daily- educated on Paxil and age [age] years old and may need to decrease dose and switch rx decrease Paxil 20 mg daily for 2 weeks then stop Plan to Add in 2 weeks Zoloft 50 mg daily when stop Paxil Educated and discuss on medication options Add Lamotrigine 25 mg daily for next 2 weeks then increase to Lamotrigine 50 mg daily educated on all rx Lamotrigine lamotrigine has a serious rashes requiring hospitalization and discontinue treatment including Rafa Michael syndrome rare case of toxic epidermal necrolysis and cache related deaths. Incidence with adjunct of epilepsy treatment 0.8% in 2 to 16 years old and 0.3% in adults, bipolar and other mood disorders incidence 0.8% this initial monotherapy and 0.13% as adjunctive treatment. Other risk factor may include concomitant use of valproate acid derivative or exceeding initial lamotrigine does or does as clinician recommendation; most life-threatening rash of occurring first 2 to 8 week of treatment with isolated cases after prolonged treatment; though benign may occur, discontinue treatment at first sign of rash unless clearly not a drug related; TC treatment may not prevent trash from becoming life-threatening or permanently disabling or disfiguring. Comment reaction include, nausea/vomiting, dizziness/vertigo , visual disturbances, somnolence, ataxia, pruritus/rash, pharyngitis, headache, rhinitis, diarrhea, fever, asthenia, insomnia, tremor, abdominal pain, cough, accidental injury, constipation, dysmenorrhea, incoordination, anxiety, seizures, irritability, anorexia, xerostomia, and photosensitivity. Serious reactions include: Rash, severe; Dumont Michael syndrome; toxic epidermal necrosis; injury edema, hypersensitivity reactions. Including fatal, multiple organ failure to safe fatal, rash with eosinophilia systemic symptoms, DIC, neutropenia, leukopenia, thrombocytopenia, pancytopenia, aplastic anemia, hemolytic anemia, i pancreatitis, hepatic failure, rhabdomyolysis, worsening of suicidal ideation, worsening of depression, cleft lip/palate [first trimester use] DO not Change Cosmetic, perfumes or soap for next 4 weeks. The patient was advice to take lamotrigine as prescribed the patient was instructed not to deviate from the prescription dosages. Stop lamotrigine is the first sign of rash. Patient was insisted to inform office if any of the serious side effect develops. d/c Abilify 5 mg at bedtime- r/o chest pain refer to therapy - Molly Anxiety-Buspar 10 mg three times a day with a meal - Xanax 0.25 mg PRN (not taking presently) Sleep- sleep hygiene http_s://www.claudia .org/About-Mental -Illness/Mental-H ealth-Conditions http_s://psychcen [facility].rul.com/depressi on/the-cognitive- dfkvlxwg-if-hpixx ssion#treatments http__s://www.[facility].nih.gov/health/ topics/mental-hea lth-medications http__s://www.nam i.org/About-Menta l-Illness/Treatme nts/Mental-Health -Medications educated on all medications, benefits, side effects and risk, and educated on depression, anxiety, and ADHD, mood d/o and educated on compliance of medications, metabolic and movement d/o education appointment's, continue therapy discussion with patient about course of treatment and patient instructions. education on serotonin syndrome Discussed and educated pt regarding benzodiazepines are generally not intended for prolonged use and that use can cause tolerance, dependence, depression, and associated memory issues including dementias (this list is not exhaustive). Benzodiazepine use is generally not recommended concurrently with pain medications and/or other controlled substances educated on all medications, benefits, side effects and risk, and educated on depression, anxiety, and ADHD, mood d/o and educated on compliance of medications, metabolic and movement d/o education appointment is, continue therapy discussion with patient about course of treatment and patient instructions. education on serotonin syndrome SSRI/SNRI side effects discussed including but not limited to, gastric upset, nausea, vomiting, diarrhea and/or constipation, weight changes, sexual side effects including loss of libido, increased suicidal thoughts/behavior s in children and young adults, and serotonin syndrome. Second generation antipsychotics (SGAs) have metabolic syndrome issues with weight gain, increase in prolactin, increased waist circumference, increased lipids, and increased glucose. Thus routine monitoring of weight, metabolic labs, etc. is indicated. A general rank ordering of antipsychotics that have the greatest to the least risk of metabolic effects is olanzapine, quetiapine, risperidone, ziprasidone, and aripiprazole. However, weight gain can occur with all of these drugs and considerable variability exists among patients receiving the same drug regarding the risk of metabolic effects. Anti-psychotic agents not only increase the risk of metabolic disorder, they also increase the risk of CVA, akathisia, and movement disorders including EPS or tardive dyskinesia (more common with first generation antipsychotics) and more. Medication Management and Follow-Up - Plan: - Schedule follow-up appointments every 1-3 months to monitor the patient's response to the medication regimen. - Reinforce the importance of avoiding recreational drug use due to potential neurotoxicity and interactions with prescribed medications. 07/28/2024 MDD (major depressive disorder), recurrent episode, moderate (ICD-10 - F33.1) Preventing Depression From Coming Back: Care Instructions material was published, Depression Treatment: Care Instructions material was published, Seasonal Affective Disorder: Care Instructions material was published, Learning About How to Get Help During a Mental Health Crisis material was published Depression- improved no refills needed today Zoloft 50 mg daily start today- cesar titrate as needed in PT for High tone pelvic dysfunction- no plan or intent schedule to see [facility] for chest pain- had test done and heart monitor scheduled Educated and discuss on medication options educated on all rx refer to therapy - Molly Anxiety-Buspar 10 mg three times a day with a meal - Xanax 0.25 mg PRN - educated to take for anxiety Sleep- sleep hygiene http_s://www.claudia .org/About-Mental -Illness/Mental-H ealth-Conditions http_s://psychcen tral.com/depressi on/the-cognitive- yndgtbex-bq-sxlmd ssion#treatments http__s://www.nim .nih.gov/health/ topics/mental-hea lth-medications http__s://www.nam i.org/About-Menta l-Illness/Treatme nts/Mental-Health -Medications educated on all medications, benefits, side effects and risk, and educated on depression, anxiety, and ADHD, mood d/o and educated on compliance of medications, metabolic and movement d/o education appointment's, continue therapy discussion with patient about course of treatment and patient instructions. education on serotonin syndrome Discussed and educated pt regarding benzodiazepines are generally not intended for prolonged use and that use can cause tolerance, dependence, depression, and associated memory issues including dementias (this list is not exhaustive). Benzodiazepine use is generally not recommended concurrently with pain medications and/or other controlled substances educated on all medications, benefits, side effects and risk, and educated on depression, anxiety, and ADHD, mood d/o and educated on compliance of medications, metabolic and movement d/o education appointment is, continue therapy discussion with patient about course of treatment and patient instructions. education on serotonin syndrome SSRI/SNRI side effects discussed including but not limited to, gastric upset, nausea, vomiting, diarrhea and/or constipation, weight changes, sexual side effects including loss of libido, increased suicidal thoughts/behavior s in children and young adults, and serotonin syndrome. Medication Management and Follow-Up - Plan: - Schedule follow-up appointments every 1-3 months to monitor the patient's response to the medication regimen. - Reinforce the importance of avoiding recreational drug use due to potential neurotoxicity and interactions with prescribed medications. 08/08/2024 Generalized anxiety disorder (ICD-10 - F41.1) Generalized Anxiety Disorder: Care Instructions material was published, Learning About Generalized Anxiety Disorder material was published, Generalized Anxiety Disorder: Care Instructions material was published, Learning About Generalized Anxiety Disorder material was published, Learning About Anxiety Disorders material was published, Learning About Transcranial Magnetic Stimulation (TMS) material was published, Learning About Generalized Anxiety Disorder material was published, Generalized Anxiety Disorder: Care Instructions material was published, Learning About Anxiety Disorders material was published 1. Depression- increase depression and anxiety at Zoloft 100 mg dose- been on dose 4 days Will decrease Zoloft 50 mg daily Zoloft 50 mg daily - will titrate as needed hx PT for High tone pelvic dysfunction- no plan or intent schedule to see [facility] for chest pain- had test done and heart monitor scheduled- procedure 09/08- bladder biopsy Educated and discuss on medication options educated on all rx refer to therapy Matilde Barnes 2. Anxiety- Buspar 10 mg three times a day with a meal - Xanax 0.25 mg twice to three times daily PRN - educated to take for anxiety- reported taken x1 08/07/24 and helped - no refill needed today Vistaril 10 mg twice a day PRN Added 08/07/24 Sleep- sleep hygiene http_s://www.claudia .org/About-Mental -Illness/Mental-H ealth-Conditions http_s://psychcen [facility].rul.com/depressi on/the-cognitive- bqyfxxhc-fz-hjpco ssion#treatments http__s://www.nim .nih.gov/health/ topics/mental-hea lth-medications http__s://www.[facility].org/About-Menta l-Illness/Treatme nts/Mental-Health -Medications educated on all medications, benefits, side effects and risk, and educated on depression, anxiety, and ADHD, mood d/o and educated on compliance of medications, metabolic and movement d/o education appointment's, continue therapy discussion with patient about course of treatment and patient instructions. education on serotonin syndrome Discussed and educated pt regarding benzodiazepines are generally not intended for prolonged use and that use can cause tolerance, dependence, depression, and associated memory issues including dementias (this list is not exhaustive). Benzodiazepine use is generally not recommended concurrently with pain medications and/or other controlled substances educated on all medications, benefits, side effects and risk, and educated on depression, anxiety, and ADHD, mood d/o and educated on compliance of medications, metabolic and movement d/o education appointment is, continue therapy discussion with patient about course of treatment and patient instructions. education on serotonin syndrome SSRI/SNRI side effects discussed including but not limited to, gastric upset, nausea, vomiting, diarrhea and/or constipation, weight changes, sexual side effects including loss of libido, increased suicidal thoughts/behavior s in children and young adults, and serotonin syndrome. Medication Management and Follow-Up - Plan: - Schedule follow-up appointments every 1-3 months to monitor the patient's response to the medication regimen. - Reinforce the importance of avoiding recreational drug use due to potential neurotoxicity and interactions with prescribed medications. 08/08/2024 MDD (major depressive disorder), recurrent episode, moderate (ICD-10 - F33.1) Preventing Depression From Coming Back: Care Instructions material was published, Depression Treatment: Care Instructions material was published, Seasonal Affective Disorder: Care Instructions material was published, Learning About How to Get Help During a Mental Health Crisis material was published 1. Depression- increase depression and anxiety at Zoloft 100 mg dose- been on dose 4 days Will decrease Zoloft 50 mg daily Zoloft 50 mg daily - will titrate as needed hx PT for High tone pelvic dysfunction- no plan or intent schedule to see [facility] for chest pain- had test done and heart monitor scheduled- procedure 09/08- bladder biopsy Educated and discuss on medication options educated on all rx refer to therapy - Molly 2. Anxiety- Buspar 10 mg three times a day with a meal - Xanax 0.25 mg twice to three times daily PRN - educated to take for anxiety- reported taken x1 08/07/24 and helped - no refill needed today Vistaril 10 mg twice a day PRN Added 08/07/24 Sleep- sleep hygiene http_s://www.claudia .org/About-Mental -Illness/Mental-H ealth-Conditions http_s://psychcen [facility].rul.com/depressi on/the-cognitive- fxnsurbu-et-grpwb ssion#treatments http__s://www.[facility].nih.gov/health/ topics/mental-hea lth-medications http__s://www.nam i.org/About-Menta l-Illness/Treatme nts/Mental-Health -Medications educated on all medications, benefits, side effects and risk, and educated on depression, anxiety, and ADHD, mood d/o and educated on compliance of medications, metabolic and movement d/o education appointment's, continue therapy discussion with patient about course of treatment and patient instructions. education on serotonin syndrome Discussed and educated pt regarding benzodiazepines are generally not intended for prolonged use and that use can cause tolerance, dependence, depression, and associated memory issues including dementias (this list is not exhaustive). Benzodiazepine use is generally not recommended concurrently with pain medications and/or other controlled substances educated on all medications, benefits, side effects and risk, and educated on depression, anxiety, and ADHD, mood d/o and educated on compliance of medications, metabolic and movement d/o education appointment is, continue therapy discussion with patient about course of treatment and patient instructions. education on serotonin syndrome SSRI/SNRI side effects discussed including but not limited to, gastric upset, nausea, vomiting, diarrhea and/or constipation, weight changes, sexual side effects including loss of libido, increased suicidal thoughts/behavior s in children and young adults, and serotonin syndrome. Medication Management and Follow-Up - Plan: - Schedule follow-up appointments every 1-3 months to monitor the patient's response to the medication regimen. - Reinforce the importance of avoiding recreational drug use due to potential neurotoxicity and interactions with prescribed medications. 06/29/2024 Insomnia due to other mental disorder (ICD-10 - F51.05) Depression- Zoloft 50 mg daily been on this ose 4 days- conitnue rx schedule to see [facility] today for chest pain- wakes up in night Educated and discuss on medication options educated on all rx refer to therapy - Molly Anxiety-Buspar 10 mg three times a day with a meal - Xanax 0.25 mg PRN (not taking presently) Sleep- sleep hygiene http_s://www.claudia .org/About-Mental -Illness/Mental-H ealth-Conditions http_s://psychcen tral.com/depressi on/the-cognitive- ocuapzxv-hd-rqeay ssion#treatments http__s://www.[facility].nih.gov/health/ topics/mental-hea lth-medications http__s://www.nam i.org/About-Menta l-Illness/Treatme nts/Mental-Health -Medications educated on all medications, benefits, side effects and risk, and educated on depression, anxiety, and ADHD, mood d/o and educated on compliance of medications, metabolic and movement d/o education appointment's, continue therapy discussion with patient about course of treatment and patient instructions. education on serotonin syndrome Discussed and educated pt regarding benzodiazepines are generally not intended for prolonged use and that use can cause tolerance, dependence, depression, and associated memory issues including dementias (this list is not exhaustive). Benzodiazepine use is generally not recommended concurrently with pain medications and/or other controlled substances educated on all medications, benefits, side effects and risk, and educated on depression, anxiety, and ADHD, mood d/o and educated on compliance of medications, metabolic and movement d/o education appointment is, continue therapy discussion with patient about course of treatment and patient instructions. education on serotonin syndrome SSRI/SNRI side effects discussed including but not limited to, gastric upset, nausea, vomiting, diarrhea and/or constipation, weight changes, sexual side effects including loss of libido, increased suicidal thoughts/behavior s in children and young adults, and serotonin syndrome. Medication Management and Follow-Up - Plan: - Schedule follow-up appointments every 1-3 months to monitor the patient's response to the medication regimen. - Reinforce the importance of avoiding recreational drug use due to potential neurotoxicity and interactions with prescribed medications. 07/28/2024 Insomnia due to other mental disorder (ICD-10 - F51.05) Depression- improved no refills needed today Zoloft 50 mg daily start today- cesar titrate as needed in PT for High tone pelvic dysfunction- no plan or intent schedule to see [facility] for chest pain- had test done and heart monitor scheduled Educated and discuss on medication options educated on all rx refer to therapy - Molly Anxiety-Buspar 10 mg three times a day with a meal - Xanax 0.25 mg PRN - educated to take for anxiety Sleep- sleep hygiene http_s://www.claudia .org/About-Mental -Illness/Mental-H ealth-Conditions http_s://psychcen [facility].rul[employer] Globalcom/depressi on/the-cognitive- xldzxayv-ul-pgtqy ssion#treatments http__s://www.[facility].nih.gov/health/ topics/mental-hea lth-medications http__s://www.nam i.org/About-Menta l-Illness/Treatme nts/Mental-Health -Medications educated on all medications, benefits, side effects and risk, and educated on depression, anxiety, and ADHD, mood d/o and educated on compliance of medications, metabolic and movement d/o education appointment's, continue therapy discussion with patient about course of treatment and patient instructions. education on serotonin syndrome Discussed and educated pt regarding benzodiazepines are generally not intended for prolonged use and that use can cause tolerance, dependence, depression, and associated memory issues including dementias (this list is not exhaustive). Benzodiazepine use is generally not recommended concurrently with pain medications and/or other controlled substances educated on all medications, benefits, side effects and risk, and educated on depression, anxiety, and ADHD, mood d/o and educated on compliance of medications, metabolic and movement d/o education appointment is, continue therapy discussion with patient about course of treatment and patient instructions. education on serotonin syndrome SSRI/SNRI side effects discussed including but not limited to, gastric upset, nausea, vomiting, diarrhea and/or constipation, weight changes, sexual side effects including loss of libido, increased suicidal thoughts/behavior s in children and young adults, and serotonin syndrome. Medication Management and Follow-Up - Plan: - Schedule follow-up appointments every 1-3 months to monitor the patient's response to the medication regimen. - Reinforce the importance of avoiding recreational drug use due to potential neurotoxicity and interactions with prescribed medications. 06/08/2024 Insomnia due to other mental disorder (ICD-10 - F51.05) Depression- presently taking Paxil 30 mg daily- educated on Paxil and age [age] years old and may need to decrease dose and switch rx decrease Paxil 20 mg daily for 2 weeks then stop Plan to Add in 2 weeks Zoloft 50 mg daily when stop Paxil Educated and discuss on medication options Add Lamotrigine 25 mg daily for next 2 weeks then increase to Lamotrigine 50 mg daily educated on all rx Lamotrigine lamotrigine has a serious rashes requiring hospitalization and discontinue treatment including Rafa Michael syndrome rare case of toxic epidermal necrolysis and cache related deaths. Incidence with adjunct of epilepsy treatment 0.8% in 2 to 16 years old and 0.3% in adults, bipolar and other mood disorders incidence 0.8% this initial monotherapy and 0.13% as adjunctive treatment. Other risk factor may include concomitant use of valproate acid derivative or exceeding initial lamotrigine does or does as clinician recommendation; most life-threatening rash of occurring first 2 to 8 week of treatment with isolated cases after prolonged treatment; though benign may occur, discontinue treatment at first sign of rash unless clearly not a drug related; TC treatment may not prevent trash from becoming life-threatening or permanently disabling or disfiguring. Comment reaction include, nausea/vomiting, dizziness/vertigo , visual disturbances, somnolence, ataxia, pruritus/rash, pharyngitis, headache, rhinitis, diarrhea, fever, asthenia, insomnia, tremor, abdominal pain, cough, accidental injury, constipation, dysmenorrhea, incoordination, anxiety, seizures, irritability, anorexia, xerostomia, and photosensitivity. Serious reactions include: Rash, severe; Dumont Michael syndrome; toxic epidermal necrosis; injury edema, hypersensitivity reactions. Including fatal, multiple organ failure to safe fatal, rash with eosinophilia systemic symptoms, DIC, neutropenia, leukopenia, thrombocytopenia, pancytopenia, aplastic anemia, hemolytic anemia, i pancreatitis, hepatic failure, rhabdomyolysis, worsening of suicidal ideation, worsening of depression, cleft lip/palate [first trimester use] DO not Change Cosmetic, perfumes or soap for next 4 weeks. The patient was advice to take lamotrigine as prescribed the patient was instructed not to deviate from the prescription dosages. Stop lamotrigine is the first sign of rash. Patient was insisted to inform office if any of the serious side effect develops. d/c Abilify 5 mg at bedtime- r/o chest pain refer to therapy - Molly Anxiety-Buspar 10 mg three times a day with a meal - Xanax 0.25 mg PRN (not taking presently) Sleep- sleep hygiene http_s://www.claudia .org/About-Mental -Illness/Mental-H ealth-Conditions http_s://psychcen tral.com/depressi on/the-cognitive- hfxppqvy-hb-xvdke ssion#treatments http__s://www.[facility].nih.gov/health/ topics/mental-hea lth-medications http__s://www.nam i.org/About-Menta l-Illness/Treatme nts/Mental-Health -Medications educated on all medications, benefits, side effects and risk, and educated on depression, anxiety, and ADHD, mood d/o and educated on compliance of medications, metabolic and movement d/o education appointment's, continue therapy discussion with patient about course of treatment and patient instructions. education on serotonin syndrome Discussed and educated pt regarding benzodiazepines are generally not intended for prolonged use and that use can cause tolerance, dependence, depression, and associated memory issues including dementias (this list is not exhaustive). Benzodiazepine use is generally not recommended concurrently with pain medications and/or other controlled substances educated on all medications, benefits, side effects and risk, and educated on depression, anxiety, and ADHD, mood d/o and educated on compliance of medications, metabolic and movement d/o education appointment is, continue therapy discussion with patient about course of treatment and patient instructions. education on serotonin syndrome SSRI/SNRI side effects discussed including but not limited to, gastric upset, nausea, vomiting, diarrhea and/or constipation, weight changes, sexual side effects including loss of libido, increased suicidal thoughts/behavior s in children and young adults, and serotonin syndrome. Second generation antipsychotics (SGAs) have metabolic syndrome issues with weight gain, increase in prolactin, increased waist circumference, increased lipids, and increased glucose. Thus routine monitoring of weight, metabolic labs, etc. is indicated. A general rank ordering of antipsychotics that have the greatest to the least risk of metabolic effects is olanzapine, quetiapine, risperidone, ziprasidone, and aripiprazole. However, weight gain can occur with all of these drugs and considerable variability exists among patients receiving the same drug regarding the risk of metabolic effects. Anti-psychotic agents not only increase the risk of metabolic disorder, they also increase the risk of CVA, akathisia, and movement disorders including EPS or tardive dyskinesia (more common with first generation antipsychotics) and more. Medication Management and Follow-Up - Plan: - Schedule follow-up appointments every 1-3 months to monitor the patient's response to the medication regimen. - Reinforce the importance of avoiding recreational drug use due to potential neurotoxicity and interactions with prescribed medications. 07/14/2024 Other [facility] (current) drug therapy (ICD-10 - Z79.899) Medication Refill: Care Instructions material was published, Medication Refill: Care Instructions material was published, Medication Refill: Care Instructions material was published Depression- Zoloft 50 mg daily start today- cesar titrate as needed in PT for High tone pelvic dysfunction- D/C Viibyrd 10 mg dose- last taken 07/13/24 - passive thoughts last Wednesday and Wednesday improved today none today no plan or intent schedule to see [facility] for chest pain- had test done and heart monitor scheduled Educated and discuss on medication options educated on all rx refer to therapy - Molly Anxiety-Buspar 10 mg three times a day with a meal - Xanax 0.25 mg PRN - educated to take for anxiety Sleep- sleep hygiene http_s://www.claudia .org/About-Mental -Illness/Mental-H ealth-Conditions http_s://psychcen [employer].com/depressi on/the-cognitive- bctwbhfe-ne-mexqy ssion#treatments http__s://www.nim h.nih.gov/health/ topics/mental-hea lth-medications http__s://www.nam i.org/About-Menta l-Illness/Treatme nts/Mental-Health -Medications educated on all medications, benefits, side effects and risk, and educated on depression, anxiety, and ADHD, mood d/o and educated on compliance of medications, metabolic and movement d/o education appointment's, continue therapy discussion with patient about course of treatment and patient instructions. education on serotonin syndrome Discussed and educated pt regarding benzodiazepines are generally not intended for prolonged use and that use can cause tolerance, dependence, depression, and associated memory issues including dementias (this list is not exhaustive). Benzodiazepine use is generally not recommended concurrently with pain medications and/or other controlled substances educated on all medications, benefits, side effects and risk, and educated on depression, anxiety, and ADHD, mood d/o and educated on compliance of medications, metabolic and movement d/o education appointment is, continue therapy discussion with patient about course of treatment and patient instructions. education on serotonin syndrome SSRI/SNRI side effects discussed including but not limited to, gastric upset, nausea, vomiting, diarrhea and/or constipation, weight changes, sexual side effects including loss of libido, increased suicidal thoughts/behavior s in children and young adults, and serotonin syndrome. Medication Management and Follow-Up - Plan: - Schedule follow-up appointments every 1-3 months to monitor the patient's response to the medication regimen. - Reinforce the importance of avoiding recreational drug use due to potential neurotoxicity and interactions with prescribed medications. 02/14/2024 Insomnia due to other mental disorder (ICD-10 - F51.05) 02/24/2024 Other [facility] (current) drug therapy (ICD-10 - Z79.899) Medication Refill: Care Instructions material was published Depression- Paxil 30 mg daily- educated on Paxil and age [age] years old and may need to decrease dose and switch rx in near future - patient tolerating rx - no refill needed on Paxil today- plan to taper off Paxil - rx in near future Educated and discuss on medication options Abilify 5 mg at bedtime- improved depression s/s refer to therapy - Molly or Maye Anxiety-Buspar 10 mg three times a day with a meal - no refill needed today Xanax 0.25 mg PRN (not taking presently) Sleep- sleep hygiene http_s://www.claudia .org/About-Mental -Illness/Mental-H ealth-Conditions http_s://psychcen tral.com/depressi on/the-cognitive- rbpfpvcx-qj-qhlhq ssion#treatments http__s://www.nim h.nih.gov/health/ topics/mental-hea lth-medications http__s://www.nam i.org/About-Menta l-Illness/Treatme nts/Mental-Health -Medications educated on all medications, benefits, side effects and risk, and educated on depression, anxiety, and ADHD, mood d/o and educated on compliance of medications, metabolic and movement d/o education appointment's, continue therapy discussion with patient about course of treatment and patient instructions. education on serotonin syndrome Discussed and educated pt regarding benzodiazepines are generally not intended for prolonged use and that use can cause tolerance, dependence, depression, and associated memory issues including dementias (this list is not exhaustive). Benzodiazepine use is generally not recommended concurrently with pain medications and/or other controlled substances educated on all medications, benefits, side effects and risk, and educated on depression, anxiety, and ADHD, mood d/o and educated on compliance of medications, metabolic and movement d/o education appointment is, continue therapy discussion with patient about course of treatment and patient instructions. education on serotonin syndrome SSRI/SNRI side effects discussed including but not limited to, gastric upset, nausea, vomiting, diarrhea and/or constipation, weight changes, sexual side effects including loss of libido, increased suicidal thoughts/behavior s in children and young adults, and serotonin syndrome. Second generation antipsychotics (SGAs) have metabolic syndrome issues with weight gain, increase in prolactin, increased waist circumference, increased lipids, and increased glucose. Thus routine monitoring of weight, metabolic labs, etc. is indicated. A general rank ordering of antipsychotics that have the greatest to the least risk of metabolic effects is olanzapine, quetiapine, risperidone, ziprasidone, and aripiprazole. However, weight gain can occur with all of these drugs and considerable variability exists among patients receiving the same drug regarding the risk of metabolic effects. Anti-psychotic agents not only increase the risk of metabolic disorder, they also increase the risk of CVA, akathisia, and movement disorders including EPS or tardive dyskinesia (more common with first generation antipsychotics) and more. Medication Management and Follow-Up - Plan: - Schedule follow-up appointments every 1-3 months to monitor the patient's response to the medication regimen. - Reinforce the importance of avoiding recreational drug use due to potential neurotoxicity and interactions with prescribed medications. 08/17/2024 MDD (major depressive disorder), recurrent episode, moderate (ICD-10 - F33.1) Preventing Depression From Coming Back: Care Instructions material was published, Depression Treatment: Care Instructions material was published, Seasonal Affective Disorder: Care Instructions material was published, Learning About How to Get Help During a Mental Health Crisis material was published 1. Depression- continue depression and anxiety d/c Zoloft 50 mg daily- diarrhea and weight loss discuss with patient Paxil and over age 60, benefits, risk, side effects, and monitor - see director records management and heart monitor scheduled discuss risk QTC/QT interval risk pateint reported felt the best on Paxil discuss cardiovascular risk Discuss and educated onTrintellix and Auvelity options Pateint agreed to Trintellix - will start Trintellix 5 mg daily for 2 week then increase Trintellix 10 mg daily - samples given hx PT for High tone pelvic dysfunction- no plan or intent schedule to see [facility] for chest pain- had test done and heart monitor scheduled- procedure - bladder biopsy schedule endometrosis biopsy schedule Educated and discuss on medication options educated on all rx refer to therapy - Molly 2. Anxiety- Buspar 10 mg three times a day with a meal - Xanax 0.25 mg twice to three times daily PRN - educated to take for anxiety- reported taken x1 08/07/24 and helped - no refill needed today Patient reported Vistaril 10 mg twice a day PRN has helped and lasted longer than Xanax and would like to increase dose Increase Vistaril 25 mg three times a day PRN for anxiety Sleep- sleep hygiene http_s://www.claudia .org/About-Mental -Illness/Mental-H ealth-Conditions http_s://psychcen [employer].rul.com/depressi on/the-cognitive- deofnimw-op-yztqd ssion#treatments http__s://www.nim h.nih.gov/health/ topics/mental-hea lth-medications http__s://www.nam i.org/About-Menta l-Illness/Treatme nts/Mental-Health -Medications educated on all medications, benefits, side effects and risk, and educated on depression, anxiety, and ADHD, mood d/o and educated on compliance of medications, metabolic and movement d/o education appointment's, continue therapy discussion with patient about course of treatment and patient instructions. education on serotonin syndrome Discussed and educated pt regarding benzodiazepines are generally not intended for prolonged use and that use can cause tolerance, dependence, depression, and associated memory issues including dementias (this list is not exhaustive). Benzodiazepine use is generally not recommended concurrently with pain medications and/or other controlled substances educated on all medications, benefits, side effects and risk, and educated on depression, anxiety, and ADHD, mood d/o and educated on compliance of medications, metabolic and movement d/o education appointment is, continue therapy discussion with patient about course of treatment and patient instructions. education on serotonin syndrome SSRI/SNRI side effects discussed including but not limited to, gastric upset, nausea, vomiting, diarrhea and/or constipation, weight changes, sexual side effects including loss of libido, increased suicidal thoughts/behavior s in children and young adults, and serotonin syndrome. Medication Management and Follow-Up - Plan: - Schedule follow-up appointments every 1-3 months to monitor the patient's response to the medication regimen. - Reinforce the importance of avoiding recreational drug use due to potential neurotoxicity and interactions with prescribed medications. 09/05/2024 MDD (major depressive disorder), recurrent episode, moderate (ICD-10 - F33.1) Preventing Depression From Coming Back: Care Instructions material was published, Depression Treatment: Care Instructions material was published, Seasonal Affective Disorder: Care Instructions material was published, Learning About How to Get Help During a Mental Health Crisis material was published 1. Depression- continue depression and anxiety discuss with patient Paxil and over age 60, benefits, risk, side effects, and monitor - see director records management and heart monitor scheduled discuss risk QTC/QT interval risk pateint reported felt the best on Paxil discuss cardiovascular risk Discuss and educated onTrintellix and Auvelity options Pateint agreed to Trintellix - will continue Trintellix 5 mg daily samples given Add Zofran 4 mg twice a day as needed for nausea hx PT for High tone pelvic dysfunction- no plan or intent schedule to see [facility] for chest pain- had test done and heart monitor scheduled- procedure - bladder biopsy schedule endometrosis biopsy schedule Educated and discuss on medication options educated on all rx refer to therapy - Molly 2. Anxiety- Buspar 10 mg three times a day with a meal - Xanax 0.25 mg twice to three times daily PRN - reported not taking presently Patient reported Vistaril 10 mg three times a day PRN has helped Sleep- sleep hygiene http_s://www.claudia .org/About-Mental -Illness/Mental-H ealth-Conditions http_s://psychcen tral.com/depressi on/the-cognitive- txtxdyhb-cr-wajrl ssion#treatments http__s://www.[facility].nih.gov/health/ topics/mental-hea [facility]-medications http__s://www.nam i.org/About-Menta l-Illness/Treatme nts/Mental-Health -Medications educated on all medications, benefits, side effects and risk, and educated on depression, anxiety, and ADHD, mood d/o and educated on compliance of medications, metabolic and movement d/o education appointment's, continue therapy discussion with patient about course of treatment and patient instructions. education on serotonin syndrome Discussed and educated pt regarding benzodiazepines are generally not intended for prolonged use and that use can cause tolerance, dependence, depression, and associated memory issues including dementias (this list is not exhaustive). Benzodiazepine use is generally not recommended concurrently with pain medications and/or other controlled substances educated on all medications, benefits, side effects and risk, and educated on depression, anxiety, and ADHD, mood d/o and educated on compliance of medications, metabolic and movement d/o education appointment is, continue therapy discussion with patient about course of treatment and patient instructions. education on serotonin syndrome SSRI/SNRI side effects discussed including but not limited to, gastric upset, nausea, vomiting, diarrhea and/or constipation, weight changes, sexual side effects including loss of libido, increased suicidal thoughts/behavior s in children and young adults, and serotonin syndrome. Medication Management and Follow-Up - Plan: - Schedule follow-up appointments every 1-3 months to monitor the patient's response to the medication regimen. - Reinforce the importance of avoiding recreational drug use due to potential neurotoxicity and interactions with prescribed medications. 08/22/2024 Encounter for screening for depression (ICD-10 - Z13.31) 02/03/2024 Other [facility] (current) drug therapy (ICD-10 - Z79.899) Medication Refill: Care Instructions material was published currently taking Buspar 10 mg twice a day, Paxil 30 mg daily, and Xanax 0.25 mg PRN (not taking presently) Depression- Paxil 30 mg daily- educated on Paxil and age [age] years old and may need to decrease dose and switch rx in near future - patient tolerating rx - no refill needed on Paxil today Educated and discuss on medication options will Add Abilify 5 mg at bedtime refer to therapy - Molly or Maye Anxiety- Increase Buspar 10 mg three times a day with a meal - no refill needed today Xanax 0.25 mg PRN (not taking presently) Sleep- sleep hygiene http_s://www.claudia .org/About-Mental -Illness/Mental-H ealth-Conditions http_s://psychFM [employer].com/depressi on/the-cognitive- kzvvtaqo-ly-bsxor ssion#treatments http__s://www.[facility].nih.gov/health/ topics/mental-hea [facility]-medications http__s://www.nam i.org/About-Menta l-Illness/Treatme nts/Mental-Health -Medications educated on all medications, benefits, side effects and risk, and educated on depression, anxiety, and ADHD, mood d/o and educated on compliance of medications, metabolic and movement d/o education appointment's, continue therapy discussion with patient about course of treatment and patient instructions. education on serotonin syndrome Discussed and educated pt regarding benzodiazepines are generally not intended for prolonged use and that use can cause tolerance, dependence, depression, and associated memory issues including dementias (this list is not exhaustive). Benzodiazepine use is generally not recommended concurrently with pain medications and/or other controlled substances educated on all medications, benefits, side effects and risk, and educated on depression, anxiety, and ADHD, mood d/o and educated on compliance of medications, metabolic and movement d/o education appointment is, continue therapy discussion with patient about course of treatment and patient instructions. education on serotonin syndrome SSRI/SNRI side effects discussed including but not limited to, gastric upset, nausea, vomiting, diarrhea and/or constipation, weight changes, sexual side effects including loss of libido, increased suicidal thoughts/behavior s in children and young adults, and serotonin syndrome. Second generation antipsychotics (SGAs) have metabolic syndrome issues with weight gain, increase in prolactin, increased waist circumference, increased lipids, and increased glucose. Thus routine monitoring of weight, metabolic labs, etc. is indicated. A general rank ordering of antipsychotics that have the greatest to the least risk of metabolic effects is olanzapine, quetiapine, risperidone, ziprasidone, and aripiprazole. However, weight gain can occur with all of these drugs and considerable variability exists among patients receiving the same drug regarding the risk of metabolic effects. Anti-psychotic agents not only increase the risk of metabolic disorder, they also increase the risk of CVA, akathisia, and movement disorders including EPS or tardive dyskinesia (more common with first generation antipsychotics) and more. Medication Management and Follow-Up - Plan: - Schedule follow-up appointments every 1-3 months to monitor the patient's response to the medication regimen. - Reinforce the importance of avoiding recreational drug use due to potential neurotoxicity and interactions with prescribed medications. 08/17/2024 Insomnia due to other mental disorder (ICD-10 - F51.05) 1. Depression- continue depression and anxiety d/c Zoloft 50 mg daily- diarrhea and weight loss discuss with patient Paxil and over age 58, benefits, risk, side effects, and monitor - see director records management and heart monitor scheduled discuss risk QTC/QT interval risk pateint reported felt the best on Paxil discuss cardiovascular risk Discuss and educated onTrintellix and Auvelity options Pateint agreed to Trintellix - will start Trintellix 5 mg daily for 2 week then increase Trintellix 10 mg daily - samples given hx PT for High tone pelvic dysfunction- no plan or intent schedule to see [facility] Associate for chest pain- had test done and heart monitor scheduled- procedure - bladder biopsy schedule endometrosis biopsy schedule Educated and discuss on medication options educated on all rx refer to therapy - Molly 2. Anxiety- Buspar 10 mg three times a day with a meal - Xanax 0.25 mg twice to three times daily PRN - educated to take for anxiety- reported taken x1 08/07/24 and helped - no refill needed today Patient reported Vistaril 10 mg twice a day PRN has helped and lasted longer than Xanax and would like to increase dose Increase Vistaril 25 mg three times a day PRN for anxiety Sleep- sleep hygiene http_s://www.claudia .org/About-Mental -Illness/Mental-H ealth-Conditions http_s://psychcen tral.com/depressi on/the-cognitive- bzdmfnpo-xj-islpc ssion#treatments http__s://www.nim .nih.gov/health/ topics/mental-hea lth-medications http__s://www.nam i.org/About-Menta l-Illness/Treatme nts/Mental-Health -Medications educated on all medications, benefits, side effects and risk, and educated on depression, anxiety, and ADHD, mood d/o and educated on compliance of medications, metabolic and movement d/o education appointment's, continue therapy discussion with patient about course of treatment and patient instructions. education on serotonin syndrome Discussed and educated pt regarding benzodiazepines are generally not intended for prolonged use and that use can cause tolerance, dependence, depression, and associated memory issues including dementias (this list is not exhaustive). Benzodiazepine use is generally not recommended concurrently with pain medications and/or other controlled substances educated on all medications, benefits, side effects and risk, and educated on depression, anxiety, and ADHD, mood d/o and educated on compliance of medications, metabolic and movement d/o education appointment is, continue therapy discussion with patient about course of treatment and patient instructions. education on serotonin syndrome SSRI/SNRI side effects discussed including but not limited to, gastric upset, nausea, vomiting, diarrhea and/or constipation, weight changes, sexual side effects including loss of libido, increased suicidal thoughts/behavior s in children and young adults, and serotonin syndrome. Medication Management and Follow-Up - Plan: - Schedule follow-up appointments every 1-3 months to monitor the patient's response to the medication regimen. - Reinforce the importance of avoiding recreational drug use due to potential neurotoxicity and interactions with prescribed medications. 09/05/2024 Insomnia due to other mental disorder (ICD-10 - F51.05) 1. Depression- continue depression and anxiety discuss with patient Paxil and over age 60, benefits, risk, side effects, and monitor - see director records management and heart monitor scheduled discuss risk QTC/QT interval risk pateint reported felt the best on Paxil discuss cardiovascular risk Discuss and educated onTrintellix and Auvelity options Pateint agreed to Trintellix - will continue Trintellix 5 mg daily samples given Add Zofran 4 mg twice a day as needed for nausea hx PT for High tone pelvic dysfunction- no plan or intent schedule to see [facility] Associate for chest pain- had test done and heart monitor scheduled- procedure - bladder biopsy schedule endometrosis biopsy schedule Educated and discuss on medication options educated on all rx refer to therapy - Molly 2. Anxiety- Buspar 10 mg three times a day with a meal - Xanax 0.25 mg twice to three times daily PRN - reported not taking presently Patient reported Vistaril 10 mg three times a day PRN has helped Sleep- sleep hygiene http_s://www.claudia .org/About-Mental -Illness/Mental-H ealth-Conditions http_s://psychFM [employer].com/depressi on/the-cognitive- xrnpfzdd-xe-sbrxl ssion#treatments http__s://www.[facility].nih.gov/health/ topics/mental-hea lth-medications http__s://www.nam i.org/About-Menta l-Illness/Treatme nts/Mental-Health -Medications educated on all medications, benefits, side effects and risk, and educated on depression, anxiety, and ADHD, mood d/o and educated on compliance of medications, metabolic and movement d/o education appointment's, continue therapy discussion with patient about course of treatment and patient instructions. education on serotonin syndrome Discussed and educated pt regarding benzodiazepines are generally not intended for prolonged use and that use can cause tolerance, dependence, depression, and associated memory issues including dementias (this list is not exhaustive). Benzodiazepine use is generally not recommended concurrently with pain medications and/or other controlled substances educated on all medications, benefits, side effects and risk, and educated on depression, anxiety, and ADHD, mood d/o and educated on compliance of medications, metabolic and movement d/o education appointment is, continue therapy discussion with patient about course of treatment and patient instructions. education on serotonin syndrome SSRI/SNRI side effects discussed including but not limited to, gastric upset, nausea, vomiting, diarrhea and/or constipation, weight changes, sexual side effects including loss of libido, increased suicidal thoughts/behavior s in children and young adults, and serotonin syndrome. Medication Management and Follow-Up - Plan: - Schedule follow-up appointments every 1-3 months to monitor the patient's response to the medication regimen. - Reinforce the importance of avoiding recreational drug use due to potential neurotoxicity and interactions with prescribed medications. 02/14/2024 Other trial management associate (current) drug therapy (ICD-10 - Z79.899) 06/08/2024 Other trial management associate (current) drug therapy (ICD-10 - Z79.899) Medication Refill: Care Instructions material was published, Medication Refill: Care Instructions material was published Depression- presently taking Paxil 30 mg daily- educated on Paxil and age [age] years old and may need to decrease dose and switch rx decrease Paxil 20 mg daily for 2 weeks then stop Plan to Add in 2 weeks Zoloft 50 mg daily when stop Paxil Educated and discuss on medication options Add Lamotrigine 25 mg daily for next 2 weeks then increase to Lamotrigine 50 mg daily educated on all rx Lamotrigine lamotrigine has a serious rashes requiring hospitalization and discontinue treatment including Rafa Michael syndrome rare case of toxic epidermal necrolysis and cache related deaths. Incidence with adjunct of epilepsy treatment 0.8% in 2 to 16 years old and 0.3% in adults, bipolar and other mood disorders incidence 0.8% this initial monotherapy and 0.13% as adjunctive treatment. Other risk factor may include concomitant use of valproate acid derivative or exceeding initial lamotrigine does or does as clinician recommendation; most life-threatening rash of occurring first 2 to 8 week of treatment with isolated cases after prolonged treatment; though benign may occur, discontinue treatment at first sign of rash unless clearly not a drug related; TC treatment may not prevent trash from becoming life-threatening or permanently disabling or disfiguring. Comment reaction include, nausea/vomiting, dizziness/vertigo , visual disturbances, somnolence, ataxia, pruritus/rash, pharyngitis, headache, rhinitis, diarrhea, fever, asthenia, insomnia, tremor, abdominal pain, cough, accidental injury, constipation, dysmenorrhea, incoordination, anxiety, seizures, irritability, anorexia, xerostomia, and photosensitivity. Serious reactions include: Rash, severe; Dumont Michael syndrome; toxic epidermal necrosis; injury edema, hypersensitivity reactions. Including fatal, multiple organ failure to safe fatal, rash with eosinophilia systemic symptoms, DIC, neutropenia, leukopenia, thrombocytopenia, pancytopenia, aplastic anemia, hemolytic anemia, i pancreatitis, hepatic failure, rhabdomyolysis, worsening of suicidal ideation, worsening of depression, cleft lip/palate [first trimester use] DO not Change Cosmetic, perfumes or soap for next 4 weeks. The patient was advice to take lamotrigine as prescribed the patient was instructed not to deviate from the prescription dosages. Stop lamotrigine is the first sign of rash. Patient was insisted to inform office if any of the serious side effect develops. d/c Abilify 5 mg at bedtime- r/o chest pain refer to therapy - Molly Anxiety-Buspar 10 mg three times a day with a meal - Xanax 0.25 mg PRN (not taking presently) Sleep- sleep hygiene http_s://www.claudia .org/About-Mental -Illness/Mental-H ealth-Conditions http_s://psychcen [employer].rul.com/depressi on/the-cognitive- mfhvzcsn-uv-csvrs ssion#treatments http__s://www.[facility].nih.gov/health/ topics/mental-hea lth-medications http__s://www.nam i.org/About-Menta l-Illness/Treatme nts/Mental-Health -Medications educated on all medications, benefits, side effects and risk, and educated on depression, anxiety, and ADHD, mood d/o and educated on compliance of medications, metabolic and movement d/o education appointment's, continue therapy discussion with patient about course of treatment and patient instructions. education on serotonin syndrome Discussed and educated pt regarding benzodiazepines are generally not intended for prolonged use and that use can cause tolerance, dependence, depression, and associated memory issues including dementias (this list is not exhaustive). Benzodiazepine use is generally not recommended concurrently with pain medications and/or other controlled substances educated on all medications, benefits, side effects and risk, and educated on depression, anxiety, and ADHD, mood d/o and educated on compliance of medications, metabolic and movement d/o education appointment is, continue therapy discussion with patient about course of treatment and patient instructions. education on serotonin syndrome SSRI/SNRI side effects discussed including but not limited to, gastric upset, nausea, vomiting, diarrhea and/or constipation, weight changes, sexual side effects including loss of libido, increased suicidal thoughts/behavior s in children and young adults, and serotonin syndrome. Second generation antipsychotics (SGAs) have metabolic syndrome issues with weight gain, increase in prolactin, increased waist circumference, increased lipids, and increased glucose. Thus routine monitoring of weight, metabolic labs, etc. is indicated. A general rank ordering of antipsychotics that have the greatest to the least risk of metabolic effects is olanzapine, quetiapine, risperidone, ziprasidone, and aripiprazole. However, weight gain can occur with all of these drugs and considerable variability exists among patients receiving the same drug regarding the risk of metabolic effects. Anti-psychotic agents not only increase the risk of metabolic disorder, they also increase the risk of CVA, akathisia, and movement disorders including EPS or tardive dyskinesia (more common with first generation antipsychotics) and more. Medication Management and Follow-Up - Plan: - Schedule follow-up appointments every 1-3 months to monitor the patient's response to the medication regimen. - Reinforce the importance of avoiding recreational drug use due to potential neurotoxicity and interactions with prescribed medications. 07/28/2024 Other fci (current) drug therapy (ICD-10 - Z79.899) Medication Refill: Care Instructions material was published, Medication Refill: Care Instructions material was published, Medication Refill: Care Instructions material was published Depression- improved no refills needed today Zoloft 50 mg daily start today- cesar titrate as needed in PT for High tone pelvic dysfunction- no plan or intent schedule to see Guest Associate for chest pain- had test done and heart monitor scheduled Educated and discuss on medication options educated on all rx refer to therapy - Molly Anxiety-Buspar 10 mg three times a day with a meal - Xanax 0.25 mg PRN - educated to take for anxiety Sleep- sleep hygiene http_s://www.claudia .org/About-Mental -Illness/Mental-H ealth-Conditions http_s://psychFM [employer].rul.com/depressi on/the-cognitive- xxwlmexh-il-lkikl ssion#treatments http__s://www.nim .nih.gov/health/ topics/mental-hea lth-medications http__s://www.nam i.org/About-Menta l-Illness/Treatme nts/Mental-Health -Medications educated on all medications, benefits, side effects and risk, and educated on depression, anxiety, and ADHD, mood d/o and educated on compliance of medications, metabolic and movement d/o education appointment's, continue therapy discussion with patient about course of treatment and patient instructions. education on serotonin syndrome Discussed and educated pt regarding benzodiazepines are generally not intended for prolonged use and that use can cause tolerance, dependence, depression, and associated memory issues including dementias (this list is not exhaustive). Benzodiazepine use is generally not recommended concurrently with pain medications and/or other controlled substances educated on all medications, benefits, side effects and risk, and educated on depression, anxiety, and ADHD, mood d/o and educated on compliance of medications, metabolic and movement d/o education appointment is, continue therapy discussion with patient about course of treatment and patient instructions. education on serotonin syndrome SSRI/SNRI side effects discussed including but not limited to, gastric upset, nausea, vomiting, diarrhea and/or constipation, weight changes, sexual side effects including loss of libido, increased suicidal thoughts/behavior s in children and young adults, and serotonin syndrome. Medication Management and Follow-Up - Plan: - Schedule follow-up appointments every 1-3 months to monitor the patient's response to the medication regimen. - Reinforce the importance of avoiding recreational drug use due to potential neurotoxicity and interactions with prescribed medications. 06/29/2024 Other fci (current) drug therapy (ICD-10 - Z79.899) Medication Refill: Care Instructions material was published, Medication Refill: Care Instructions material was published Depression- Zoloft 50 mg daily been on this ose 4 days- conitnue rx schedule to see Guest Associate today for chest pain- wakes up in night Educated and discuss on medication options educated on all rx refer to therapy - Molly Anxiety-Buspar 10 mg three times a day with a meal - Xanax 0.25 mg PRN (not taking presently) Sleep- sleep hygiene http_s://www.claudia .org/About-Mental -Illness/Mental-H ealth-Conditions http_s://psychFM [employer].com/depressi on/the-cognitive- xtvgrahd-px-pgpwk ssion#treatments http__s://www.nim h.nih.gov/health/ topics/mental-hea [facility]-medications http__s://www.nam i.org/About-Menta l-Illness/Treatme nts/Mental-Health -Medications educated on all medications, benefits, side effects and risk, and educated on depression, anxiety, and ADHD, mood d/o and educated on compliance of medications, metabolic and movement d/o education appointment's, continue therapy discussion with patient about course of treatment and patient instructions. education on serotonin syndrome Discussed and educated pt regarding benzodiazepines are generally not intended for prolonged use and that use can cause tolerance, dependence, depression, and associated memory issues including dementias (this list is not exhaustive). Benzodiazepine use is generally not recommended concurrently with pain medications and/or other controlled substances educated on all medications, benefits, side effects and risk, and educated on depression, anxiety, and ADHD, mood d/o and educated on compliance of medications, metabolic and movement d/o education appointment is, continue therapy discussion with patient about course of treatment and patient instructions. education on serotonin syndrome SSRI/SNRI side effects discussed including but not limited to, gastric upset, nausea, vomiting, diarrhea and/or constipation, weight changes, sexual side effects including loss of libido, increased suicidal thoughts/behavior s in children and young adults, and serotonin syndrome. Medication Management and Follow-Up - Plan: - Schedule follow-up appointments every 1-3 months to monitor the patient's response to the medication regimen. - Reinforce the importance of avoiding recreational drug use due to potential neurotoxicity and interactions with prescribed medications. 08/08/2024 Insomnia due to other mental disorder (ICD-10 - F51.05) 1. Depression- increase depression and anxiety at Zoloft 100 mg dose- been on dose 4 days Will decrease Zoloft 50 mg daily Zoloft 50 mg daily - will titrate as needed hx PT for High tone pelvic dysfunction- no plan or intent schedule to see Guest Associate for chest pain- had test done and heart monitor scheduled- procedure 09/08- bladder biopsy Educated and discuss on medication options educated on all rx refer to therapy - Molly 2. Anxiety- Buspar 10 mg three times a day with a meal - Xanax 0.25 mg twice to three times daily PRN - educated to take for anxiety- reported taken x1 08/07/24 and helped - no refill needed today Vistaril 10 mg twice a day PRN Added 08/07/24 Sleep- sleep hygiene http_s://www.claudia .org/About-Mental -Illness/Mental-H ealth-Conditions http_s://psychcen tral.com/depressi on/the-cognitive- yyawhukl-bk-hrdrc ssion#treatments http__s://www.nim h.nih.gov/health/ topics/mental-hea lth-medications http__s://www.nam i.org/About-Menta l-Illness/Treatme nts/Mental-Health -Medications educated on all medications, benefits, side effects and risk, and educated on depression, anxiety, and ADHD, mood d/o and educated on compliance of medications, metabolic and movement d/o education appointment's, continue therapy discussion with patient about course of treatment and patient instructions. education on serotonin syndrome Discussed and educated pt regarding benzodiazepines are generally not intended for prolonged use and that use can cause tolerance, dependence, depression, and associated memory issues including dementias (this list is not exhaustive). Benzodiazepine use is generally not recommended concurrently with pain medications and/or other controlled substances educated on all medications, benefits, side effects and risk, and educated on depression, anxiety, and ADHD, mood d/o and educated on compliance of medications, metabolic and movement d/o education appointment is, continue therapy discussion with patient about course of treatment and patient instructions. education on serotonin syndrome SSRI/SNRI side effects discussed including but not limited to, gastric upset, nausea, vomiting, diarrhea and/or constipation, weight changes, sexual side effects including loss of libido, increased suicidal thoughts/behavior s in children and young adults, and serotonin syndrome. Medication Management and Follow-Up - Plan: - Schedule follow-up appointments every 1-3 months to monitor the patient's response to the medication regimen. - Reinforce the importance of avoiding recreational drug use due to potential neurotoxicity and interactions with prescribed medications. 08/08/2024 Other fci (current) drug therapy (ICD-10 - Z79.899) Medication Refill: Care Instructions material was published, Medication Refill: Care Instructions material was published, Medication Refill: Care Instructions material was published 1. Depression- increase depression and anxiety at Zoloft 100 mg dose- been on dose 4 days Will decrease Zoloft 50 mg daily Zoloft 50 mg daily - will titrate as needed hx PT for High tone pelvic dysfunction- no plan or intent schedule to see Guest Associate for chest pain- had test done and heart monitor scheduled- procedure 09/08- bladder biopsy Educated and discuss on medication options educated on all rx refer to therapy - Molly 2. Anxiety- Buspar 10 mg three times a day with a meal - Xanax 0.25 mg twice to three times daily PRN - educated to take for anxiety- reported taken x1 08/07/24 and helped - no refill needed today Vistaril 10 mg twice a day PRN Added 08/07/24 Sleep- sleep hygiene http_s://www.claudia .org/About-Mental -Illness/Mental-H ealth-Conditions http_s://psychFM [employer]/depressi on/the-cognitive- sqzwgsez-lb-xbkus ssion#treatments http__s://www.[facility].nih.gov/health/ topics/mental-hea [facility]-medications http__s://www.nam i.org/About-Menta l-Illness/Treatme nts/Mental-Health -Medications educated on all medications, benefits, side effects and risk, and educated on depression, anxiety, and ADHD, mood d/o and educated on compliance of medications, metabolic and movement d/o education appointment's, continue therapy discussion with patient about course of treatment and patient instructions. education on serotonin syndrome Discussed and educated pt regarding benzodiazepines are generally not intended for prolonged use and that use can cause tolerance, dependence, depression, and associated memory issues including dementias (this list is not exhaustive). Benzodiazepine use is generally not recommended concurrently with pain medications and/or other controlled substances educated on all medications, benefits, side effects and risk, and educated on depression, anxiety, and ADHD, mood d/o and educated on compliance of medications, metabolic and movement d/o education appointment is, continue therapy discussion with patient about course of treatment and patient instructions. education on serotonin syndrome SSRI/SNRI side effects discussed including but not limited to, gastric upset, nausea, vomiting, diarrhea and/or constipation, weight changes, sexual side effects including loss of libido, increased suicidal thoughts/behavior s in children and young adults, and serotonin syndrome. Medication Management and Follow-Up - Plan: - Schedule follow-up appointments every 1-3 months to monitor the patient's response to the medication regimen. - Reinforce the importance of avoiding recreational drug use due to potential neurotoxicity and interactions with prescribed medications. 07/28/2024 Encounter for screening for depression (ICD-10 - Z13.31) Depression- improved no refills needed today Zoloft 50 mg daily start today- cesar titrate as needed in PT for High tone pelvic dysfunction- no plan or intent schedule to see Guest Associate for chest pain- had test done and heart monitor scheduled Educated and discuss on medication options educated on all rx refer to therapy - Molly Anxiety-Buspar 10 mg three times a day with a meal - Xanax 0.25 mg PRN - educated to take for anxiety Sleep- sleep hygiene http_s://www.claudia .org/About-Mental -Illness/Mental-H ealth-Conditions http_s://psychcen [employer].rul.com/depressi on/the-cognitive- qocwpimi-ll-mcfuk ssion#treatments http__s://www.[facility].nih.gov/health/ topics/mental-hea lth-medications http__s://www.nam i.org/About-Menta l-Illness/Treatme nts/Mental-Health -Medications educated on all medications, benefits, side effects and risk, and educated on depression, anxiety, and ADHD, mood d/o and educated on compliance of medications, metabolic and movement d/o education appointment's, continue therapy discussion with patient about course of treatment and patient instructions. education on serotonin syndrome Discussed and educated pt regarding benzodiazepines are generally not intended for prolonged use and that use can cause tolerance, dependence, depression, and associated memory issues including dementias (this list is not exhaustive). Benzodiazepine use is generally not recommended concurrently with pain medications and/or other controlled substances educated on all medications, benefits, side effects and risk, and educated on depression, anxiety, and ADHD, mood d/o and educated on compliance of medications, metabolic and movement d/o education appointment is, continue therapy discussion with patient about course of treatment and patient instructions. education on serotonin syndrome SSRI/SNRI side effects discussed including but not limited to, gastric upset, nausea, vomiting, diarrhea and/or constipation, weight changes, sexual side effects including loss of libido, increased suicidal thoughts/behavior s in children and young adults, and serotonin syndrome. Medication Management and Follow-Up - Plan: - Schedule follow-up appointments every 1-3 months to monitor the patient's response to the medication regimen. - Reinforce the importance of avoiding recreational drug use due to potential neurotoxicity and interactions with prescribed medications. 02/14/2024 Elevated liver enzymes (ICD-10 - R74.8) 08/17/2024 Other trial management associate (current) drug therapy (ICD-10 - Z79.899) Medication Refill: Care Instructions material was published, Medication Refill: Care Instructions material was published, Medication Refill: Care Instructions material was published 1. Depression- continue depression and anxiety d/c Zoloft 50 mg daily- diarrhea and weight loss discuss with patient Paxil and over age 60, benefits, risk, side effects, and monitor - see director records management and heart monitor scheduled discuss risk QTC/QT interval risk pateint reported felt the best on Paxil discuss cardiovascular risk Discuss and educated onTrintellix and Auvelity options Pateint agreed to Trintellix - will start Trintellix 5 mg daily for 2 week then increase Trintellix 10 mg daily - samples given hx PT for High tone pelvic dysfunction- no plan or intent schedule to see Guest Associate for chest pain- had test done and heart monitor scheduled- procedure - bladder biopsy schedule endometrosis biopsy schedule Educated and discuss on medication options educated on all rx refer to therapy - Molly 2. Anxiety- Buspar 10 mg three times a day with a meal - Xanax 0.25 mg twice to three times daily PRN - educated to take for anxiety- reported taken x1 08/07/24 and helped - no refill needed today Patient reported Vistaril 10 mg twice a day PRN has helped and lasted longer than Xanax and would like to increase dose Increase Vistaril 25 mg three times a day PRN for anxiety Sleep- sleep hygiene http_s://www.claudia .org/About-Mental -Illness/Mental-H ealth-Conditions http_s://psychcen [employer].rul.com/depressi on/the-cognitive- utnzyozj-kq-rrdky ssion#treatments http__s://www.nim h.nih.gov/health/ topics/mental-hea lth-medications http__s://www.nam i.org/About-Menta l-Illness/Treatme nts/Mental-Health -Medications educated on all medications, benefits, side effects and risk, and educated on depression, anxiety, and ADHD, mood d/o and educated on compliance of medications, metabolic and movement d/o education appointment's, continue therapy discussion with patient about course of treatment and patient instructions. education on serotonin syndrome Discussed and educated pt regarding benzodiazepines are generally not intended for prolonged use and that use can cause tolerance, dependence, depression, and associated memory issues including dementias (this list is not exhaustive). Benzodiazepine use is generally not recommended concurrently with pain medications and/or other controlled substances educated on all medications, benefits, side effects and risk, and educated on depression, anxiety, and ADHD, mood d/o and educated on compliance of medications, metabolic and movement d/o education appointment is, continue therapy discussion with patient about course of treatment and patient instructions. education on serotonin syndrome SSRI/SNRI side effects discussed including but not limited to, gastric upset, nausea, vomiting, diarrhea and/or constipation, weight changes, sexual side effects including loss of libido, increased suicidal thoughts/behavior s in children and young adults, and serotonin syndrome. Medication Management and Follow-Up - Plan: - Schedule follow-up appointments every 1-3 months to monitor the patient's response to the medication regimen. - Reinforce the importance of avoiding recreational drug use due to potential neurotoxicity and interactions with prescribed medications. 09/05/2024 Other fci (current) drug therapy (ICD-10 - [id number]) Medication Refill: Care Instructions material was published, Medication Refill: Care Instructions material was published, Medication Refill: Care Instructions material was published 1. Depression- continue depression and anxiety discuss with patient Paxil and over age 60, benefits, risk, side effects, and monitor - see director records management and heart monitor scheduled discuss risk QTC/QT interval risk pateint reported felt the best on Paxil discuss cardiovascular risk Discuss and educated onTrintellix and Auvelity options Pateint agreed to Trintellix - will continue Trintellix 5 mg daily samples given Add Zofran 4 mg twice a day as needed for nausea hx PT for High tone pelvic dysfunction- no plan or intent schedule to see Guest Associate for chest pain- had test done and heart monitor scheduled- procedure - bladder biopsy schedule endometrosis biopsy schedule Educated and discuss on medication options educated on all rx refer to therapy Matilde Barnes 2. Anxiety- Buspar 10 mg three times a day with a meal - Xanax 0.25 mg twice to three times daily PRN - reported not taking presently Patient reported Vistaril 10 mg three times a day PRN has helped Sleep- sleep hygiene http_s://www.claudia .org/About-Mental -Illness/Mental-H ealth-Conditions http_s://psychcen tral.com/depressi on/the-cognitive- edhblxew-xm-juols ssion#treatments http__s://www.[facility].nih.gov/health/ topics/mental-hea [facility]-medications http__s://www.nam i.org/About-Menta l-Illness/Treatme nts/Mental-Health -Medications educated on all medications, benefits, side effects and risk, and educated on depression, anxiety, and ADHD, mood d/o and educated on compliance of medications, metabolic and movement d/o education appointment's, continue therapy discussion with patient about course of treatment and patient instructions. education on serotonin syndrome Discussed and educated pt regarding benzodiazepines are generally not intended for prolonged use and that use can cause tolerance, dependence, depression, and associated memory issues including dementias (this list is not exhaustive). Benzodiazepine use is generally not recommended concurrently with pain medications and/or other controlled substances educated on all medications, benefits, side effects and risk, and educated on depression, anxiety, and ADHD, mood d/o and educated on compliance of medications, metabolic and movement d/o education appointment is, continue therapy discussion with patient about course of treatment and patient instructions. education on serotonin syndrome SSRI/SNRI side effects discussed including but not limited to, gastric upset, nausea, vomiting, diarrhea and/or constipation, weight changes, sexual side effects including loss of libido, increased suicidal thoughts/behavior s in children and young adults, and serotonin syndrome. Medication Management and Follow-Up - Plan: - Schedule follow-up appointments every 1-3 months to monitor the patient's response to the medication regimen. - Reinforce the importance of avoiding recreational drug use due to potential neurotoxicity and interactions with prescribed medications. 09/05/2024 Nausea and vomiting, unspecified vomiting type (ICD-10 - R11.2) 1. Depression- continue depression and anxiety discuss with patient Paxil and over age 58, benefits, risk, side effects, and monitor - see director records management and heart monitor scheduled discuss risk QTC/QT interval risk pateint reported felt the best on Paxil discuss cardiovascular risk Discuss and educated onTrintellix and Auvelity options Pateint agreed to Trintellix - will continue Trintellix 5 mg daily samples given Add Zofran 4 mg twice a day as needed for nausea hx PT for High tone pelvic dysfunction- no plan or intent schedule to see Guest Associate for chest pain- had test done and heart monitor scheduled- procedure - bladder biopsy schedule endometrosis biopsy schedule Educated and discuss on medication options educated on all rx refer to therapy - Molly 2. Anxiety- Buspar 10 mg three times a day with a meal - Xanax 0.25 mg twice to three times daily PRN - reported not taking presently Patient reported Vistaril 10 mg three times a day PRN has helped Sleep- sleep hygiene http_s://www.claudia .org/About-Mental -Illness/Mental-H ealth-Conditions http_s://psychcen [employer].rul.com/depressi on/the-cognitive- knxeafbd-aq-qmjes ssion#treatments http__s://www.nim .nih.gov/health/ topics/mental-hea lth-medications http__s://www.nam i.org/About-Menta l-Illness/Treatme nts/Mental-Health -Medications educated on all medications, benefits, side effects and risk, and educated on depression, anxiety, and ADHD, mood d/o and educated on compliance of medications, metabolic and movement d/o education appointment's, continue therapy discussion with patient about course of treatment and patient instructions. education on serotonin syndrome Discussed and educated pt regarding benzodiazepines are generally not intended for prolonged use and that use can cause tolerance, dependence, depression, and associated memory issues including dementias (this list is not exhaustive). Benzodiazepine use is generally not recommended concurrently with pain medications and/or other controlled substances educated on all medications, benefits, side effects and risk, and educated on depression, anxiety, and ADHD, mood d/o and educated on compliance of medications, metabolic and movement d/o education appointment is, continue therapy discussion with patient about course of treatment and patient instructions. education on serotonin syndrome SSRI/SNRI side effects discussed including but not limited to, gastric upset, nausea, vomiting, diarrhea and/or constipation, weight changes, sexual side effects including loss of libido, increased suicidal thoughts/behavior s in children and young adults, and serotonin syndrome. Medication Management and Follow-Up - Plan: - Schedule follow-up appointments every 1-3 months to monitor the patient's response to the medication regimen. - Reinforce the importance of avoiding recreational drug use due to potential neurotoxicity and interactions with prescribed medications. 09/05/2024 Encounter for screening for cardiovascular disorders (ICD-10 - Z13.6) 1. Depression- continue depression and anxiety discuss with patient Paxil and over age 58, benefits, risk, side effects, and monitor - see director records management and heart monitor scheduled discuss risk QTC/QT interval risk pateint reported felt the best on Paxil discuss cardiovascular risk Discuss and educated onTrintellix and Auvelity options Pateint agreed to Trintellix - will continue Trintellix 5 mg daily samples given Add Zofran 4 mg twice a day as needed for nausea hx PT for High tone pelvic dysfunction- no plan or intent schedule to see Guest Associate for chest pain- had test done and heart monitor scheduled- procedure - bladder biopsy schedule endometrosis biopsy schedule Educated and discuss on medication options educated on all rx refer to therapy - Molly 2. Anxiety- Buspar 10 mg three times a day with a meal - Xanax 0.25 mg twice to three times daily PRN - reported not taking presently Patient reported Vistaril 10 mg three times a day PRN has helped Sleep- sleep hygiene http_s://www.claudia .org/About-Mental -Illness/Mental-H ealth-Conditions http_s://[employer]/depressi on/the-cognitive- aujlulwx-na-qkwcm ssion#treatments http__s://www.nim h.nih.gov/health/ topics/mental-hea lth-medications http__s://www.nam i.org/About-Menta l-Illness/Treatme nts/Mental-Health -Medications educated on all medications, benefits, side effects and risk, and educated on depression, anxiety, and ADHD, mood d/o and educated on compliance of medications, metabolic and movement d/o education appointment's, continue therapy discussion with patient about course of treatment and patient instructions. education on serotonin syndrome Discussed and educated pt regarding benzodiazepines are generally not intended for prolonged use and that use can cause tolerance, dependence, depression, and associated memory issues including dementias (this list is not exhaustive). Benzodiazepine use is generally not recommended concurrently with pain medications and/or other controlled substances educated on all medications, benefits, side effects and risk, and educated on depression, anxiety, and ADHD, mood d/o and educated on compliance of medications, metabolic and movement d/o education appointment is, continue therapy discussion with patient about course of treatment and patient instructions. education on serotonin syndrome SSRI/SNRI side effects discussed including but not limited to, gastric upset, nausea, vomiting, diarrhea and/or constipation, weight changes, sexual side effects including loss of libido, increased suicidal thoughts/behavior s in children and young adults, and serotonin syndrome. Medication Management and Follow-Up - Plan: - Schedule follow-up appointments every 1-3 months to monitor the patient's response to the medication regimen. - Reinforce the importance of avoiding recreational drug use due to potential neurotoxicity and interactions with prescribed medications. 08/17/2024 Encounter for screening for cardiovascular disorders (ICD-10 - Z13.6) 1. Depression- continue depression and anxiety d/c Zoloft 50 mg daily- diarrhea and weight loss discuss with patient Paxil and over age 60, benefits, risk, side effects, and monitor - see director records management and heart monitor scheduled discuss risk QTC/QT interval risk pateint reported felt the best on Paxil discuss cardiovascular risk Discuss and educated onTrintellix and Auvelity options Pateint agreed to Trintellix - will start Trintellix 5 mg daily for 2 week then increase Trintellix 10 mg daily - samples given hx PT for High tone pelvic dysfunction- no plan or intent schedule to see Guest Associate for chest pain- had test done and heart monitor scheduled- procedure - bladder biopsy schedule endometrosis biopsy schedule Educated and discuss on medication options educated on all rx refer to therapy - Molly 2. Anxiety- Buspar 10 mg three times a day with a meal - Xanax 0.25 mg twice to three times daily PRN - educated to take for anxiety- reported taken x1 08/07/24 and helped - no refill needed today Patient reported Vistaril 10 mg twice a day PRN has helped and lasted longer than Xanax and would like to increase dose Increase Vistaril 25 mg three times a day PRN for anxiety Sleep- sleep hygiene http_s://www.claudia .org/About-Mental -Illness/Mental-H ealth-Conditions http_s://psychcen tral.com/depressi on/the-cognitive- qzskyxjc-lg-yrufh ssion#treatments http__s://www.nim h.nih.gov/health/ topics/mental-hea lth-medications http__s://www.nam i.org/About-Menta l-Illness/Treatme nts/Mental-Health -Medications educated on all medications, benefits, side effects and risk, and educated on depression, anxiety, and ADHD, mood d/o and educated on compliance of medications, metabolic and movement d/o education appointment's, continue therapy discussion with patient about course of treatment and patient instructions. education on serotonin syndrome Discussed and educated pt regarding benzodiazepines are generally not intended for prolonged use and that use can cause tolerance, dependence, depression, and associated memory issues including dementias (this list is not exhaustive). Benzodiazepine use is generally not recommended concurrently with pain medications and/or other controlled substances educated on all medications, benefits, side effects and risk, and educated on depression, anxiety, and ADHD, mood d/o and educated on compliance of medications, metabolic and movement d/o education appointment is, continue therapy discussion with patient about course of treatment and patient instructions. education on serotonin syndrome SSRI/SNRI side effects discussed including but not limited to, gastric upset, nausea, vomiting, diarrhea and/or constipation, weight changes, sexual side effects including loss of libido, increased suicidal thoughts/behavior s in children and young adults, and serotonin syndrome. Medication Management and Follow-Up - Plan: - Schedule follow-up appointments every 1-3 months to monitor the patient's response to the medication regimen. - Reinforce the importance of avoiding recreational drug use due to potential neurotoxicity and interactions with prescribed medications. 08/08/2024 Encounter for screening for cardiovascular disorders (ICD-10 - Z13.6) 1. Depression- increase depression and anxiety at Zoloft 100 mg dose- been on dose 4 days Will decrease Zoloft 50 mg daily Zoloft 50 mg daily - will titrate as needed hx PT for High tone pelvic dysfunction- no plan or intent schedule to see Guest Associate for chest pain- had test done and heart monitor scheduled- procedure 09/08- bladder biopsy Educated and discuss on medication options educated on all rx refer to therapy - Molly 2. Anxiety- Buspar 10 mg three times a day with a meal - Xanax 0.25 mg twice to three times daily PRN - educated to take for anxiety- reported taken x1 08/07/24 and helped - no refill needed today Vistaril 10 mg twice a day PRN Added 08/07/24 Sleep- sleep hygiene http_s://www.claudia .org/About-Mental -Illness/Mental-H ealth-Conditions http_s://psychcen tral.com/depressi on/the-cognitive- oqmwdtgn-cv-gzxuj ssion#treatments http__s://www.[facility].nih.gov/health/ topics/mental-hea [facility]-medications http__s://www.nam i.org/About-Menta l-Illness/Treatme nts/Mental-Health -Medications educated on all medications, benefits, side effects and risk, and educated on depression, anxiety, and ADHD, mood d/o and educated on compliance of medications, metabolic and movement d/o education appointment's, continue therapy discussion with patient about course of treatment and patient instructions. education on serotonin syndrome Discussed and educated pt regarding benzodiazepines are generally not intended for prolonged use and that use can cause tolerance, dependence, depression, and associated memory issues including dementias (this list is not exhaustive). Benzodiazepine use is generally not recommended concurrently with pain medications and/or other controlled substances educated on all medications, benefits, side effects and risk, and educated on depression, anxiety, and ADHD, mood d/o and educated on compliance of medications, metabolic and movement d/o education appointment is, continue therapy discussion with patient about course of treatment and patient instructions. education on serotonin syndrome SSRI/SNRI side effects discussed including but not limited to, gastric upset, nausea, vomiting, diarrhea and/or constipation, weight changes, sexual side effects including loss of libido, increased suicidal thoughts/behavior s in children and young adults, and serotonin syndrome. Medication Management and Follow-Up - Plan: - Schedule follow-up appointments every 1-3 months to monitor the patient's response to the medication regimen. - Reinforce the importance of avoiding recreational drug use due to potential neurotoxicity and interactions with prescribed medications. 02/03/2024 Other Aripiprazole Oral Tablet 5 mg (ARIPIPRAZOLE - ORAL) material was published, Learning About Movement Disorders From Antipsychotic Medicines material was published, Diet and Exercise for Metabolic Syndrome: Care Instructions material was published currently taking Buspar 10 mg twice a day, Paxil 30 mg daily, and Xanax 0.25 mg PRN (not taking presently) Depression- Paxil 30 mg daily- educated on Paxil and age [age] years old and may need to decrease dose and switch rx in near future - patient tolerating rx - no refill needed on Paxil today Educated and discuss on medication options will Add Abilify 5 mg at bedtime refer to therapy - Molly or Maye Anxiety- Increase Buspar 10 mg three times a day with a meal - no refill needed today Xanax 0.25 mg PRN (not taking presently) Sleep- sleep hygiene http_s://www.claudia .org/About-Mental -Illness/Mental-H ealth-Conditions http_s://psychcen [employer].rul.com/depressi on/the-cognitive- khjjwsvh-on-elfca ssion#treatments http__s://www.[facility].nih.gov/health/ topics/mental-hea lth-medications http__s://www.nam i.org/About-Menta l-Illness/Treatme nts/Mental-Health -Medications educated on all medications, benefits, side effects and risk, and educated on depression, anxiety, and ADHD, mood d/o and educated on compliance of medications, metabolic and movement d/o education appointment's, continue therapy discussion with patient about course of treatment and patient instructions. education on serotonin syndrome Discussed and educated pt regarding benzodiazepines are generally not intended for prolonged use and that use can cause tolerance, dependence, depression, and associated memory issues including dementias (this list is not exhaustive). Benzodiazepine use is generally not recommended concurrently with pain medications and/or other controlled substances educated on all medications, benefits, side effects and risk, and educated on depression, anxiety, and ADHD, mood d/o and educated on compliance of medications, metabolic and movement d/o education appointment is, continue therapy discussion with patient about course of treatment and patient instructions. education on serotonin syndrome SSRI/SNRI side effects discussed including but not limited to, gastric upset, nausea, vomiting, diarrhea and/or constipation, weight changes, sexual side effects including loss of libido, increased suicidal thoughts/behavior s in children and young adults, and serotonin syndrome. Second generation antipsychotics (SGAs) have metabolic syndrome issues with weight gain, increase in prolactin, increased waist circumference, increased lipids, and increased glucose. Thus routine monitoring of weight, metabolic labs, etc. is indicated. A general rank ordering of antipsychotics that have the greatest to the least risk of metabolic effects is olanzapine, quetiapine, risperidone, ziprasidone, and aripiprazole. However, weight gain can occur with all of these drugs and considerable variability exists among patients receiving the same drug regarding the risk of metabolic effects. Anti-psychotic agents not only increase the risk of metabolic disorder, they also increase the risk of CVA, akathisia, and movement disorders including EPS or tardive dyskinesia (more common with first generation antipsychotics) and more. Medication Management and Follow-Up - Plan: - Schedule follow-up appointments every 1-3 months to monitor the patient's response to the medication regimen. - Reinforce the importance of avoiding recreational drug use due to potential neurotoxicity and interactions with prescribed medications. 02/24/2024 Other Learning About Depression Screening material was published, Learning About Antidepressants material was published Depression- Paxil 30 mg daily- educated on Paxil and age [age] years old and may need to decrease dose and switch rx in near future - patient tolerating rx - no refill needed on Paxil today- plan to taper off Paxil - rx in near future Educated and discuss on medication options Abilify 5 mg at bedtime- improved depression s/s refer to therapy - Molly or Maye Anxiety-Buspar 10 mg three times a day with a meal - no refill needed today Xanax 0.25 mg PRN (not taking presently) Sleep- sleep hygiene http_s://www.claudia .org/About-Mental -Illness/Mental-H ealth-Conditions http_s://psych[employer].com/depressi on/the-cognitive- rwgzfpab-dw-dmacq ssion#treatments http__s://www.nim h.nih.gov/health/ topics/mental-hea lth-medications http__s://www.nam i.org/About-Menta l-Illness/Treatme nts/Mental-Health -Medications educated on all medications, benefits, side effects and risk, and educated on depression, anxiety, and ADHD, mood d/o and educated on compliance of medications, metabolic and movement d/o education appointment's, continue therapy discussion with patient about course of treatment and patient instructions. education on serotonin syndrome Discussed and educated pt regarding benzodiazepines are generally not intended for prolonged use and that use can cause tolerance, dependence, depression, and associated memory issues including dementias (this list is not exhaustive). Benzodiazepine use is generally not recommended concurrently with pain medications and/or other controlled substances educated on all medications, benefits, side effects and risk, and educated on depression, anxiety, and ADHD, mood d/o and educated on compliance of medications, metabolic and movement d/o education appointment is, continue therapy discussion with patient about course of treatment and patient instructions. education on serotonin syndrome SSRI/SNRI side effects discussed including but not limited to, gastric upset, nausea, vomiting, diarrhea and/or constipation, weight changes, sexual side effects including loss of libido, increased suicidal thoughts/behavior s in children and young adults, and serotonin syndrome. Second generation antipsychotics (SGAs) have metabolic syndrome issues with weight gain, increase in prolactin, increased waist circumference, increased lipids, and increased glucose. Thus routine monitoring of weight, metabolic labs, etc. is indicated. A general rank ordering of antipsychotics that have the greatest to the least risk of metabolic effects is olanzapine, quetiapine, risperidone, ziprasidone, and aripiprazole. However, weight gain can occur with all of these drugs and considerable variability exists among patients receiving the same drug regarding the risk of metabolic effects. Anti-psychotic agents not only increase the risk of metabolic disorder, they also increase the risk of CVA, akathisia, and movement disorders including EPS or tardive dyskinesia (more common with first generation antipsychotics) and more. Medication Management and Follow-Up - Plan: - Schedule follow-up appointments every 1-3 months to monitor the patient's response to the medication regimen. - Reinforce the importance of avoiding recreational drug use due to potential neurotoxicity and interactions with prescribed medications. 06/08/2024 Other Lamotrigine Ora l Tablet (LAMOTRIGINE - ORAL) material was published, Sertraline Oral Tablet (SERTRALINE - ORAL) material was published Depression- presently taking Paxil 30 mg daily- educated on Paxil and age [age] years old and may need to decrease dose and switch rx decrease Paxil 20 mg daily for 2 weeks then stop Plan to Add in 2 weeks Zoloft 50 mg daily when stop Paxil Educated and discuss on medication options Add Lamotrigine 25 mg daily for next 2 weeks then increase to Lamotrigine 50 mg daily educated on all rx Lamotrigine lamotrigine has a serious rashes requiring hospitalization and discontinue treatment including Rafa Michael syndrome rare case of toxic epidermal necrolysis and cache related deaths. Incidence with adjunct of epilepsy treatment 0.8% in 2 to 16 years old and 0.3% in adults, bipolar and other mood disorders incidence 0.8% this initial monotherapy and 0.13% as adjunctive treatment. Other risk factor may include concomitant use of valproate acid derivative or exceeding initial lamotrigine does or does as clinician recommendation; most life-threatening rash of occurring first 2 to 8 week of treatment with isolated cases after prolonged treatment; though benign may occur, discontinue treatment at first sign of rash unless clearly not a drug related; TC treatment may not prevent trash from becoming life-threatening or permanently disabling or disfiguring. Comment reaction include, nausea/vomiting, dizziness/vertigo , visual disturbances, somnolence, ataxia, pruritus/rash, pharyngitis, headache, rhinitis, diarrhea, fever, asthenia, insomnia, tremor, abdominal pain, cough, accidental injury, constipation, dysmenorrhea, incoordination, anxiety, seizures, irritability, anorexia, xerostomia, and photosensitivity. Serious reactions include: Rash, severe; Dumont Michael syndrome; toxic epidermal necrosis; injury edema, hypersensitivity reactions. Including fatal, multiple organ failure to safe fatal, rash with eosinophilia systemic symptoms, DIC, neutropenia, leukopenia, thrombocytopenia, pancytopenia, aplastic anemia, hemolytic anemia, i pancreatitis, hepatic failure, rhabdomyolysis, worsening of suicidal ideation, worsening of depression, cleft lip/palate [first trimester use] DO not Change Cosmetic, perfumes or soap for next 4 weeks. The patient was advice to take lamotrigine as prescribed the patient was instructed not to deviate from the prescription dosages. Stop lamotrigine is the first sign of rash. Patient was insisted to inform office if any of the serious side effect develops. d/c Abilify 5 mg at bedtime- r/o chest pain refer to therapy - Molly Anxiety-Buspar 10 mg three times a day with a meal - Xanax 0.25 mg PRN (not taking presently) Sleep- sleep hygiene http_s://www.claudia .org/About-Mental -Illness/Mental-H ealth-Conditions http_s://psychcen tral.com/depressi on/the-cognitive- wjwacaan-bj-awpmi ssion#treatments http__s://www.nim .nih.gov/health/ topics/mental-hea [facility]-medications http__s://www.nam i.org/About-Menta l-Illness/Treatme nts/Mental-Health -Medications educated on all medications, benefits, side effects and risk, and educated on depression, anxiety, and ADHD, mood d/o and educated on compliance of medications, metabolic and movement d/o education appointment's, continue therapy discussion with patient about course of treatment and patient instructions. education on serotonin syndrome Discussed and educated pt regarding benzodiazepines are generally not intended for prolonged use and that use can cause tolerance, dependence, depression, and associated memory issues including dementias (this list is not exhaustive). Benzodiazepine use is generally not recommended concurrently with pain medications and/or other controlled substances educated on all medications, benefits, side effects and risk, and educated on depression, anxiety, and ADHD, mood d/o and educated on compliance of medications, metabolic and movement d/o education appointment is, continue therapy discussion with patient about course of treatment and patient instructions. education on serotonin syndrome SSRI/SNRI side effects discussed including but not limited to, gastric upset, nausea, vomiting, diarrhea and/or constipation, weight changes, sexual side effects including loss of libido, increased suicidal thoughts/behavior s in children and young adults, and serotonin syndrome. Second generation antipsychotics (SGAs) have metabolic syndrome issues with weight gain, increase in prolactin, increased waist circumference, increased lipids, and increased glucose. Thus routine monitoring of weight, metabolic labs, etc. is indicated.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
--- OUTSIDE RECORDS SUMMARY | 2024-09-05 10:46 | XMS_ITS | Clinical Summary ---
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 Name Role Phone Philippe Terry MD Primary Care Provider [phone] Allergies Active Allergy Reactions Criticality Noted Date [...] 1 tablet (25 mg total) by mouth clinical leader before breakfast 4 Active losartan (COZAAR) 50 [...] Muscle pain 05/04/2013 Overview (08/19/2016): Muscle pain Surgical History Surgery Date Site/Laterality Comments ENDOMETRIAL ABLATION SECTION OOPHORECTOMY CHOLECYSTECTOMY TONSILLECTOMY Medical History Medical History Date Comments Allergic rhinitis Asthma Anxiety Depression Hypertension Sinusitis Family History Medical History Relation Name Comments Car Accident Father 2 accident; Cause of : accident Cancer Mother 2 Cancer; Cause o f : Cancer Stroke Mother 2 Stroke; Relation Name Status Comments Father 1 (Age 42) Father 2 Mother 1 (Age 72) Mother 2 Social History Tobacco Use Types Packs/Day Years [...] on file Legal Sex Female 12:53 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 Gender Identity Not on file Sexual Orientation Not on file Obstetrics History Last Filed Vital Signs Vital Sign Reading Time Taken Comments Blood Pressure 145/81 04/10/2024 9:47 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 Pulse 66 04/10/2024 9:47 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 Temperature 37.4 C (99.3 F) 04/10/2024 9:47 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 Respiratory Rate 16 04/10/2024 9:47 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 Oxygen Saturation 96% 04/10/2024 9:47 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 Inhaled Oxygen Concentration - - Weight 98.9 kg (218 lb) 04/10/2024 9:47 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 Height 157.5 cm (5' 2 ) 04/10/2024 9:47 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 Body Mass Index 39.87 04/10/2024 9:47 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 Plan of Treatment Health Maintenance Due Date Last Done Comments Breast Cancer Screening-Mammogram 1963 Cervical Cancer Screening 1963 Colon Cancer Screening-Colonoscopy 1963 Depression Screening 1963 Hepatitis C Screening 1963 DTaP/Tdap/Td Vaccine (1 - Tdap) 1974 Hepatitis B Screening 1981 Regular Well Visit/Exam 18-64 1981 Pneumococcal vaccine <65 (1 of 2 - PCV) 1982 Zoster Vaccine (1 of 2) 2013 Influenza Vaccine (#1) 2024 Insurance MEDICARE [facility] Address: [address] [address] [employer] OPEN ACCESS MEDICARE [facility] Address: [address] [address] [place] [address] [facility] [email or web address] OPEN ACCESS MEDICARE Care Teams Mill Crane Operator Relationship Specialty Start Date End Date Philippe Terry MD PCP - General 08/17/16
--- OUTSIDE RECORDS SUMMARY | 2024-09-05 10:46 | XMS_ITS | Data Portability ---
Author Organization [place] - [facility] [employer], Main Office Address [address] [place] [address] Care Team Providers Care Discharge Planner Name Role Phone JENNIFER TERRY Primary Care Provider [phone] Assessment No assessment recorded. Plan of Treatment Reminders Order Date Submit Date Provider Last Modified By Organization Details Last Modified Time Details Appointments Any 15 2024 01:30P M Jennifer Terry MD Not available Not available Not available Lab lipase, serum or plasma [address] (Lab), [address] [place], [address], 03/21/2024 08:46:32 amylase, serum or plasma [address] (Lab), [address] [place], [address], 03/21/2024 08:46:32 urinalysi s complete, reflex culture 2023 024 [facility] (Lab), [address] [place], [address], 02/22/2024 09:03:48 lipid panel, serum [address] (Lab), [address] [place], [address], 01/13/2024 08:14:55 TSH, serum or plasma 2023 024 [facility] (Lab), [address] [place], [address], 01/01/2024 11:03:14 CBC w/ auto diff 2023 [facility] (Lab), [address] [place], [address], 01/01/2024 10:27:22 CMP, serum or plasma 2023 [facility] (Lab), [address] [place], [address], 01/01/2024 11:03:14 vitamin D, 25-hydrox y, total, serum [address] (Lab), [address] [place], [address], 01/13/2024 08:14:55 vitamin B12, serum [address] (Lab), [address] [place], [address], 01/13/2024 08:14:55 Referral None recorded. Procedures None recorded. Surgeries None recorded. Imaging CT, abdomen + pelvis, w/o contrast - Please call patient to schedule. 2023 [facility], [address], [address], [place], [address], 02/29/2024 18:24:33 Medication Orders None recorded. Patient TargetsNo targets recorded. Patient InstructionsNo instructions recorded. Reason for Referral None Reported. Results Created Date Observation Date Name Description Value Unit Range Abnormal Flag Note LastModifiedBy Organization Detail LastModifiedTime 02/29/2002/28/2024 CT, abdom en + pelvi s, w/o contr ast No observ ation record ed. [address] [facility] [address], [place], [address], 03/02/2024 14:28:24 Result Notes None recorded. Problems Name Problem SNOMED Code Status Onset Date Resolution Date Notes Provider Name and Address Organization Details Recorded Time Low back pain 296757377 Active 2022 Mary Jane Dueñas CMA null, [employer] [facility] [employer] [facility] 3 12:37:44 Liver enzymes outside reference range 665060421 Completed Not Available [facility] 3 02:59:05 Steatosis of liver 384746425 Active Not Available [facility] 3 02:59:05 Abdominal pain 36189718 Completed Leslie Baker LPN null, [employer] [facility] 3 13:47:25 Anemia 135598873 Active Not Available [facility] 3 02:59:05 Eruption 658568946 Completed Not Available [facility] 3 02:59:05 Chest pain 78869076 Active 2022 Not Available [facility] 3 02:59:05 Chest pain 20342534 Completed 202106/01/2022 Not Available [facility] 3 02:59:05 Acute otitis externa 97753576 Active 2021 Not Available [facility] 3 02:59:05 Osteopeni a 851414387 Active Not Available [facility] 3 02:59:05 Vitamin D deficienc y 08868567 Active Not Available [facility] 3 02:59:06 Depressiv e disorder 86119234 Active Not Available [facility] 3 02:59:06 Sleep disorder 42325324 Active Not Available [facility] 3 02:59:06 Obesity 147590532 Active Not Available [facility] 3 02:59:06 Upper respirato ry infection 95861316 Completed Jennifer Terry MD [address] [place] [address], [address] , [facility] [employer] [facility] 4 10:00:42 Joint pain 15729447 Active Not Available [facility] 3 02:59:06 Essential hypertens ion 95537648 Active Not Available [facility] 3 02:59:06 Diarrhea 74130604 Active 2021 Not Available [facility] 3 02:59:06 Diabetes mellitus 96051358 Active 2020 Not Available [facility] 3 02:59:06 Sleep apnea 54276617 Active 2021 Not Available [facility] 3 02:59:06 Palpitati ons 77126282 Active Not Available [facility] 3 02:59:06 Hyperglyc emia 37943214 Active Not Available [facility] 3 02:59:07 Fatigue 89900690 Active 2017 Not Available [facility] 3 02:59:07 Viral gastroent eritis 566823749 Active 2022 Jennifer Terry MD [address] [facility], [address], [place], [address] , [place] [facility] 3 15:51:02 Acute urinary tract infection 865291928 Completed 202204/18/2024 Elena hernández RMMerary null, [place] [facility] 4 16:48:21 Abdominal pain 18284866 Active 2022 Leslie Baker LPN null, [place] [facility] 3 13:47:25 Pain in right hip joint 16708462730 9102 Active 2022 Jennifer Terry MD [address], [address], [place], [address] , [place] [facility] 3 16:05:24 Asthma 896209309 Active 2023 Elena hernández RMMerary null, [place] [facility] 4 14:58:10 Allergic rhinitis 17515141 Active 2023 Elena hernández RMA null, [place] [facility] 4 16:48:23 Acute sinusitis 45573454 Active 2023 Leslie Baker LPN null, [place] [facility] 4 11:25:19 Upper respirato ry infection 38733707 Active 2023 Jennifer Terry MD [address] [place], [place] [address]jean marie, [facility] [address], [place], [address] , [facility] 4 10:00:42 Sinusitis 58670350 Active 2023 Tamera Stafford MA null, [facility] 4 15:38:23 Laryngiti s 28733935 Active 2023 Tamera Stafford MA null, [facility] 4 14:19:27 Urinary tract infectiou s disease 46092702 Active 2024 Leslie Baker LPN null, [facility] 5 16:06:31 Dysuria 83893487 Active 2024 Tamera Stafford MA null, [facility] 5 11:27:51 Urinary symptoms 447239329 Active 2024 Leslie Baker LPN null, [facility] 5 11:38:50 Problem Notes None recorded. Procedures Surgical History Date Name Laterality Status Provider Name and Address Organization Details Recorded Time 08/05/19 Medicare Wellness CPT Code, subsequent completed Nisha Ribera RN 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 Medical Equipment None Reported. Allergies Allergen ID Allergen Name Allergen Category Reaction Reaction Severity Criticality Documentation Date Start Date Code Code System Note Provider Name and Address Organization Details Recorded Time 5155 Substance with sulfonami de structure and antibacte rial mechanism of action (substanc e) medicatio n Not available Not available Not available 07/15/2022 73648 8003 SNOMED unsur e of react ion Not Available [facility] 3 03:07:06 5156 Product containin g penicilli n (product) medicatio n hives moderate Not available 07/15/2022 68546 8001 SNOMED Not Available [facility] 3 03:07:06 5157 Iodinated contrast media (substanc e) medicatio n swelling moderate Not available 07/15/2022 73340 2004 SNOMED Not Available [facility] 3 03:07:06 Medications Name Sig Start Date Stop Date Status Note LastModified by Organization Details LastModified Time losartan 50 mg tablet Take 1 tablet every day by oral route. active Not Available Not Available No t Available cyclobenz aprine 10 mg tablet 06/14 completed Not Available Not Available Not Available prednison e 10 mg tablet 04/05 completed Not Available Not Available Not Available doxycycli ne hyclate 100 mg capsule TAKE 1 CAPSULE BY MOUTH TWICE DAILY FOR 7 DAYS active Not Available Not Available No t Available trazodone 50 mg tablet active Not Available Not Available Not Available benzonata te 200 mg capsule Take 1 capsule 3 times a day by oral route. 01/12 completed Not Available Not Available Not Available metoprolo l succinate ER 50 mg tablet,ex tended release 24 hr TAKE 1 TABLET BY MOUTH EVERY DAY 08/04 completed Not Available Not Available Not Available hydrocodo ne 5 mg-acetam inophen 325 mg tablet 04/04 completed Not Available Not Available Not Available Elidel 1 % topical cream APPLY A THIN LAYER TO THE AFFECTED AREA(S) BY TOPICAL ROUTE 2 TIMES PER DAY ; RUB IN GENTLY AND COMPLETE LY active Not Available Not Available No t Available Medrol (Raudel) 4 mg tablets in a dose pack take as describe d on prepacka ged medicati on directio ns 01/12 completed per 10/01/23 patient case / ds Not Available Not Available Not Available clonazepa m 0.5 mg tablet 01/11 completed Not Available Not Available Not Available Zithromax Z-Raudel 250 mg tablet TAKE 2 TABLETS (500 MG) BY ORAL ROUTE ONCE DAILY FOR 1 DAY THEN 1 TABLET (250 MG) BY ORAL ROUTE ONCE DAILY FOR 4 DAYS 06/30 completed per 04/05/24 patient case / ds Not Available Not Available Not Available metronida zole 500 mg tablet Take 1 tablet every 8 hours by oral route for 7 days. 07/13 completed Not Available Not Available Not Available prochlorp erazine maleate 10 mg tablet 04/04 completed Not Available Not Available Not Available ketorolac 10 mg tablet active Not Available Not Available Not Available alprazola m 0.25 mg tablet TAKE 1 TABLET BY MOUTH DAILY NEEDED active Not Available Not Available No t Available prednisol one acetate 1 % eye drops,kimberly pension INSTILL 1 DROP IN THE LEFT EYE EVERY 3 HOURS WHILE AWAKE 09/29 completed Not Available Not Available Not Available lorazepam 0.5 mg tablet active Not Available Not Available Not Available triamcino lone acetonide 0.025 % topical cream APPLY A THIN LAYER TO THE AFFECTED AREA(S) BY TOPICAL ROUTE 2 TIMES PER DAY active Not Available Not Available No t Available ropinirol e 0.25 mg tablet 01/11 completed Not Available Not Available Not Available amitripty line 10 mg tablet 04/04 completed Not Available Not Available Not Available Ryanne 180 mg tablet Take 1 tablet every day by oral route. 04/28 completed Not Available Not Available Not Available paroxetin e 30 mg tablet TK 1 T PO QD HS 08/17 completed psych Not Available Not Available Not Available paroxetin e 20 mg tablet TAKE 1 TABLET BY MOUTH DAILY IN THE MORNING FOR 14 DAYS active Not Available Not Available No t Available nortripty line 10 mg capsule TK ONE C PO QHS 06/08 completed Not Available Not Available Not Available buspirone 30 mg tablet TK 1 T PO QD HS active Not Available Not Available No t Available Cipro 500 mg tablet Take 1 tablet every 12 hours by oral route for 7 days. 07/13 completed Not Available Not Available Not Available tobramyci n 0.3 % eye drops INSTILL 1 GTT TO EACH EYE Q 4 H 09/29 completed Not Available Not Available Not Available buspirone 10 mg tablet TAKE 1 TABLET BY MOUTH THREE TIMES DAILY active Not Available Not Available No t Available clotrimaz ole-betam ethasone 1 %-0.05 % topical cream active Not Available Not Available Not Available prednison e 50 mg tablet 06/08 completed Not Available Not Available Not Available Qvar 40 mcg/actua tion Metered Aerosol oral inhaler INL 2 PUFFS PO BID active Not Available Not Available No t Available pramipexo le 0.125 mg tablet active Not Available Not Available No t Available diclofena c sodium 75 mg tablet,de layed release Take 1 tablet by mouth twice a day 08/04 completed Not Available Not Available Not Available hydrochlo rothiazid e 25 mg tablet Take 1 tablet every day by oral route in the morning. active Not Available Not Available No t Available mupirocin 2 % topical ointment RAMON TO SCALP TID UTD 06/08 completed Not Available Not Available Not Available ergocalci ferol (vitamin D2) 1,250 mcg (50,000 unit) capsule Take 1 capsule every week by oral route for 90 days. 04/18 completed per recent lab results / ds Not Available Not Available Not Available levofloxa laura 500 mg tablet TK 1 T PO QD 11/15 completed Not Available Not Available Not Available levofloxa laura 750 mg tablet TK 1 T PO QD FOR 5 DAYS 11/15 completed Not Available Not Available Not Available Cipro 250 mg tablet Take 1 tablet every 12 hours by oral route for 5 days. 08/17 completed Not Available Not Available Not Available hydroxyzi ne HCl 10 mg tablet TAKE 1 TABLET BY MOUTH TWICE DAILY NEEDED active Not Available Not Available No t Available ondansetr on 4 mg disintegr ating tablet Place 1 tablet 3 times a day by translin gual route as needed. 01/12 completed Not Available Not Available Not Available cefdinir 300 mg capsule TK 1 C PO BID FOR 10 DAYS 12/13 completed Not Available Not Available Not Available sertralin e 50 mg tablet TAKE 1 TABLET BY MOUTH DAILY active Not Available Not Available No t Available metronida zole 0.75 % topical gel active Not Available Not Available Not Available doxycycli ne hyclate 100 mg tablet Take 1 tablet twice a day by oral route 08/04 completed Not Available Not Available Not Available Ventolin HFA 90 mcg/actua tion aerosol inhaler Inhale 2 puffs 4 times a day by inhalati on route as needed. 01/12 completed Not Available Not Available Not Available buspirone 15 mg tablet TK 2 TS PO QD 03/23 completed Not Available Not Available Not Available metaxalon e 800 mg tablet TK 1 T PO TID PRN BACK SPASM 01/12 completed Not Available Not Available Not Available aripipraz ole 5 mg tablet TAKE 1 TABLET BY MOUTH DAILY AT BEDTIME active Not Available Not Available No t Available bupropion HCl XL 150 mg 24 hr tablet, extended release 06/08 completed Not Available Not Available Not Available Lyrica 50 mg capsule 06/08 completed Not Available Not Available Not Available Xopenex HFA 45 mcg/actua tion aerosol inhaler Inhale 2 puffs 4 times a day by inhalati on route as needed. 2012 active as needed Not Available Not Available Not Available MoviPrep 100 gram-7.5 gram-2.69 1 gram oral powder packet U UTD active Not Available Not Available Not Available Suprep Bowel Prep Kit 17.5 gram-3.13 gram-1.6 gram oral solution TK UTD IN THE INSTRUCT IONS 04/05 completed Not Available Not Available Not Available vilazodon e 10 mg tablet TAKE 1 TABLET BY MOUTH DAILY WITH FOOD FOR 7 DAYS active Not Available Not Available No t Available Vitals Date Recorded Body height Body mass index (BMI) Body weight Body temperature Heart rate Oxygen saturation Oxygen saturation in Arterial blood by Pulse oximetry Systolic blood pressure Diastolic blood pressure Provider Name and Address Organization Details Last Updated DateTime 4 157.48 cm 40.1 kg/m2 42575.7 3 g 97.7 [degF] 74 /min 98 % 98 % 134 mm[Hg] 70 mm[Hg] Elena bragg Merary [employer] [facility] [employer] [facility] 4 12:23:28 Date Recorded Body height Body mass index (BMI) Body weight Oxygen saturation Oxygen saturation in Arterial blood by Pulse oximetry Heart rate Body temperature Systolic blood pressure Diastolic blood pressure Provider Name and Address Organization Details Last Updated DateTime 4 157.48 cm 40.2 kg/m2 88651.3 2 g 99 % 99 % 74 /min 98.2 [degF] 128 mm[Hg] 72 mm[Hg] Yocasta Manning [place] [facility] [employer] [facility] 4 16:13:58 Date Recorded Body height Body mass index (BMI) Body weight Body temperature Heart rate Oxygen saturation Oxygen saturation in Arterial blood by Pulse oximetry Systolic blood pressure Diastolic blood pressure Provider Name and Address Organization Details Last Updated DateTime 4 157.48 cm 39.9 kg/m2 96741.1 4 g 97.7 [degF] 79 /min 97 % 97 % 140 mm[Hg] 78 mm[Hg] Elena bragg Merary [employer] [facility] [employer] [facility] 4 14:12:53 Date Recorded Body height Body mass index (BMI) Body weight Heart rate Oxygen saturation Oxygen saturation in Arterial blood by Pulse oximetry Body temperature Systolic blood pressure Diastolic blood pressure Provider Name and Address Organization Details Last Updated DateTime 4 157.48 cm 39 kg/m2 41533.1 7 g 79 /min 97 % 97 % 97.9 [degF] 134 mm[Hg] 70 mm[Hg] Elena bragg Merary [employer] [facility] [employer] [facility] 4 16:37:35 Date Recorded Body height Body mass index (BMI) Body weight Body temperature Heart rate Oxygen saturation Oxygen saturation in Arterial blood by Pulse oximetry Systolic blood pressure Diastolic blood pressure Provider Name and Address Organization Details Last Updated DateTime 5 157.48 cm 38 kg/m2 72406.2 1 g 97.8 [degF] 87 /min 98 % 98 % 130 mm[Hg] 82 mm[Hg] Shannan marte [employer] [facility] [employer] [facility] 14:34:59 Social History Question Answer Notes LastModified by Organizat ion Details LastModified Time Tobacco Smoking Status Never Smoker Not Available [employer] 07/15/2022 02:51:18 Do You Have An Advance Directive? No [id number] Information not available 07/15/2022 What Is Your Level Of Alcohol Consumption? None [id number] Information not available 07/15/2022 What Is Your Level Of Caffeine Consumption? Moderate [id number].[id number] Information not available 07/15/2022 How Much Tobacco Do You Chew? None [id number] Information not available 07/15/2022 What Type Of Diet Are You Following? GLUTENFREE Egg And Dairy Free MIGRATION.66734 [id number] Information not available 07/15/2022 Which Illicit Or Recreational Drugs Have You Used? None [id number].[id number] Information not available 07/15/2022 Do You Or Have You Ever Used E-cigarettes Or Vape? 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 No [email or web address] Information not available 08/05/2023 What Is The Fluoride Status Of Your Home? Fluoridated MIGRATION.30974 [id number] Information not available 07/15/2022 Do You Use Insect Repellent Routinely? No [email or web address] Information not available 08/05/2023 Where Do You Live? [place] MIGRATION.56316 [id number] Information not available 07/15/2022 Are You Able To Care For Yourself? Yes [email or web address] Information not available 08/05/2023 Are You Blind Or Do Yo Have Difficulty Seeing? No [email or web address] Information not available 08/05/2023 Are You Deaf Or Do You Have Serious Difficulty Hearing? No [email or web address] Information not available 08/05/2023 Live Alone Of With Others? With Others [email or web address] Information not available 08/05/2023 Do You Have A Medical Power Of Broth Mixer? No [id number].05815 [id number] Information not available 07/15/2022 What Was The Date Of Your Most Recent Tobacco Screening? 08/05/2023 [email or web address] Information not available 08/05/2023 Do You Have Any Pets? No [email or web address] Information not available 08/05/2023 What Is Your Relationship Status? Information not available 08/05/2023 Do You Use Your Seat Belt Or Car Seat Routinely? Yes [id number] Information not available 07/15/2022 Do You Have Smoke And Carbon Monoxide Detectors In Your Home? Yes [id number].28661 [id number] Information not available 07/15/2022 Are You Passively Exposed To Smoke? No [email or web address] Information not available 08/05/2023 Do You Or Have You Ever Used Smokeless Tobacco? Never Used Smokeless Tobacco MIGRATION.27723 97811 Information not available 07/15/2022 Are There Any Smokers In Your House? No [email or web address] Information not available 08/05/2023 How Much Tobacco Do You Smoke? No MIGRATION.13084 [id number] Information not available 07/15/2022 Do You Use Sunscreen Routinely? No MIGRATION.47002 45874 Information not available 07/15/2022 Have You Recently Traveled Abroad? No [email or web address] Information not available 08/05/2023 Do You Have Any Dietary Restrictions? No MIGRATION.30266 32209 Information not available 07/15/2022 Sex: Unknown Functional Status Question Answer Note LastModified by Organizat ion Details LastModified Time What is your exercise level? None [id number] Information not available 07/15/2022 Mental Status None recorded. Family History Relationship Description Onset Age of this Age Resolved Age Notes LastModified by Organization Details LastModified Time Mother Essential hypertension [id number] Not available 07/15/2022 02:51:39 Mother Malignant neoplastic disease [id number] Not available 07/15/2022 02:51:39 Brother Essential hypertension [id number] Not available 07/15/2022 02:51:39 Father Heart disease [id number].211 [id number] Not available 07/15/2022 02:51:39 Medical History No medical history recorded. Gynecological History Statement/Question Response Date of Last Mammogram Date of Last Colonoscopy 01/26/2020 Most Recent Bone Density Obstetrics History GPAL:G 0 P 0 0 0 0 Past Encounters Encounter ID Performer Location Encounter Start Date Encounter Closed Date Diagnosis/Indication Diagnosis SNOMED-CT Code Diagnosis ICD10 Code Diagnosis Note [id number] [facility] [address] [place] [address] 08/02/2020 00:00:00 08/02/2020 17:58:30 [id number] [facility] [address] [place] [address] 12/18/2020 00:00:00 12/18/2020 15:43:20 [id number] [facility] [address] [place] [address] 04/28/2021 00:00:00 04/28/2021 16:16:53 [id number] [facility] [address] [place] [address] 08/12/2021 00:00:00 08/12/2021 16:36:26 [id number] [facility] [address] [place] [address]. [place] [address] 09/22/2021 00:00:00 09/22/2021 12:17:28 [id number] [facility] [address] [place] [address] 01/26/2022 00:00:00 01/26/2022 15:11:53 [id number] [facility] [address] [place] [address] 05/01/2022 00:00:00 05/01/2022 16:20:10 [id number] [facility] [address] [place] [address]. [place] [address] 06/02/2022 00:00:00 06/02/2022 16:30:01 [id number] Jennifer Terry MD [facility] [address] [facility] [place] [address] 11/18/2022 15:29:52 11/18/2022 15:51:27 Viral gastroenteritis [id number] A08.4 diet discussed, call if not better in 4 days [id number] Jennifer Terry MD [facility] [address] [place] [address] 02/01/2023 15:41:18 02/01/2023 16:08:25 Pain in right hip joint 4350944712 69584 M25.251 [id number] Jennifer Terry MD [facility] [address] [place] [address] 08/05/2023 09:38:20 08/05/2023 10:06:28 Upper respiratory infection 09645925 J06.9 finish doxy, add [facility] th examination [id number] Z00.00 Screening for disorder [id number] Z13.9 [id number] Jennifer Terry MD [facility] [facility] [address] [place] [address] 12/30/2023 12:13:56 12/30/2023 12:46:24 Fatigue 57545829 R53.83 Hyperlipid emia screening 783741278 Z13.872 [id number] Jenniefr Terry MD [facility] [place] Internal [id number] [place] [address] 01/13/2024 15:51:28 01/13/2024 16:58:25 Fatigue 42928310 R53.83 need to call her specialist and see if needs adjustment Vitamin D deficiency 347 31341 E55.9 on meds Steatosis of liver 94235 1007 K76.0 low fat diet, lose weight [id number] Jennifer Terry MD [facility] [facility] Internal Med [facility] [address] [place] [address] 02/21/2024 14:00:19 02/21/2024 14:26:18 Abdominal pain 44635426 R10.9 [id number] Jennifer Terry MD [facility] Internal [address] [place] [address] 04/18/2024 16:30:39 04/18/2024 17:22:25 Depressive disorder 20801451 F32.9 under control Anemia 411456143 D64.9 stable labs Diabetes mellitus 926776 09 E11.9 under control Essential hypertension 08191979 I10 under control Fatigue 62556633 R53.83 Obesity 208824308 E66.9 to lose more Osteopenia 755391310 M85 .80 otc Sleep apnea 27923543 G47 .30 cpap Vitamin D deficiency 347 21767 E55.9 on meds Allergic rhinitis 255922 04 J30.9 otc [id number] Jennifer Terry MD [facility] [address] [place] [address] 08/17/2024 14:20:41 08/17/2024 14:48:49 Depressive disorder 65581018 F32.9 ON NEW MEDS, not feeling well Anemia 952609853 D64.9 stable labs Diabetes mellitus 675747 09 E11.9 under control, no meds needed Essential hypertension 65397246 I10 under control Obesity 884991212 E66.9 to lose more Osteopenia 501738980 M85 .80 otc Sleep apnea 73275972 G47 .30 cpap Vitamin D deficiency 347 09228 E55.9 on meds Allergic rhinitis 728049 04 J30.9 otc Health Concerns Section Related Observation LastModified by Organization Detai ls LastModified Time None Recorded Concern Status LastModified by Organization Details LastModified Time None Recorded Advance Directives Directive N: Payers Encounter Date Sequence Insurance Name Policy Number Policy Collins Covered Member ID Collins Member ID Guarantor Name 12/30/2023 1 [place] Carmen L Poteau [id number] Carmen L Poteau 12/30/2023 2 [employer] (PPO) [id number] Carmen L Denae [id number] Carmen L Poteau 01/13/2024 1 [place] Carmen L Denae [id number] Carmen L Denae 01/13/2024 2 [employer] (PPO) [id number] Carmen L Poteau [id number] Carmen L Poteau 02/21/2024 1 [place] Carmen L Poteau [id number] Carmen L Poteau 02/21/2024 2 [employer] (PPO) [id number] Carmen L Poteau [id number] Carmen L Denae 04/18/2024 1 [place] Carmen L Denae [id number] Carmen L Poteau 04/18/2024 2 [employer] (PPO) [id number] Carmen L Denae [id number] Carmen L Denae 08/17/2024 1 [place] Carmen L Poteau [id number] Carmen L Denae 08/17/2024 2 [employer] (PPO) [id number] Carmen L Poteau [id number] Carmen L Denae Notes Date Note Type Note Provider Name and Address Organization Details Recorded Time 12/30/2023 text/html Pt is here today with C/o fatigue, Has been going on for a while but feels its getting worse and my need some labs.States by the after noon she doesn't feel like cooking dinner.No change in sleep. Has even had to cute her hours at workLast labs were in 2021no new medsno weight gain,sleeps fineno anxiety or depression Jennifer Terry MD [address], [place], [address], [employer] [facility] [employer] 12/30/2023 12:45:14 01/13/2024 text/html Pt is here today for a 2 week follow upvit d was 27Had labs and is now taking Vitamin D once a weekStates that she has taken only 2 dosageLFT high, low fat diet discussed Previous Note:Pt is here today with C/o fatigue, Has been going on for a while but feels its getting worse and my need some labs.States by the after noon she doesn't feel like cooking dinner.No change in sleep. Has even had to cute her hours at workLast labs were in 2021no new medsno weight gain,sleeps fineno anxiety or depression Jennifer Terry MD [address], [place], [address], [facility] [employer] 01/13/2024 16:56:44 02/21/2024 text/html Pt is here today for stomach pains. Has been going on for 3 weeks.Pain is dull, constant , goes to the upper back More right sided pain. Started a new med Abilify 02/02 and the pain started the next day. She took the med for 2 weeks called the DrClair and stopped the med. She has not had it for 1 week and the pain is not subsiding. BM are normal. Has been running a low grade fever off and on. Does feel like she might be getting a UTI as well Does not have her gallbladder. Does have a stone in the duct they seen when they removed it years ago. Jennifer Terry MD [address] [facility], [facility] [address], [place], [address], [facility] [employer] 02/21/2024 14:24:24 04/18/2024 text/html Doing fine, compliant to medications, no side affects, here for follow up.Also C/o random bumps on her neck that itches and now they are on her stomach. Has taken Mucinex and a steroid from Urgent care a week ago for bronchitis HTN- stable with medsMeds-losartan, HCTZDM- diagnosed in 01/04, Ac was 6.7 (02/17/2024) watching diet,had eye examFatigue- has been evaluated by different specialist, it is thought to be due to fibromyalgiawas on lyrica, stopped due to suicidal thoughtsSleep apnea-on cpap, compliant, helpAsthma- meds helps, has alb inhaler as needMeds- Ryanne 180 daily, alb inhaler prnDepression and seeing psych, on meds , under controlFatty liver-Liver enzymes were high due to fatty liver, w/u neg, seeing GI, advised to lose weight, and follow low fat dietBack pain- bettervit d def- on otc,osteopenia- dexa done by gyneobesity- has lost some weightPalpitations- was on metoprolol, Holter and echo NEG IN 2012H/o Gastric polyps, s/p removalc/o chest pain on the left side, was in the ER, seen cardiology, had abn stress test and CTA was nl,no more chest pain Jennifer Terry MD [address], [address], [place], [address], [employer] 04/18/2024 17:26:25 08/17/2024 text/html Doing fine, compliant to medications, no side affects, here for follow up.Pt is not fasting HTN- stable with medsMeds-losartan 50 mg , HCTZ 25 mg qdDM- diagnosed in 01/04, Ac was 6.7 (02/17/2024) watching diet,had eye exam , dueFoot exam Sleep apnea-on cpap, compliant, helpAsthma- meds helps, has alb inhaler as needMeds- Ryanne 180 daily, alb inhaler prnDepression and seeing psych, on meds , working on getting it under control, paxil was stopped and not feeling wellFatty liver-Liver enzymes were high due to fatty liver, w/u neg, seeing GI, advised to lose more weight, and follow low fat dietBack pain- bettervit d def- on otc,Osteopenia- dexa done by gyneObesity- has lost some weightPalpitations- was on metoprolol, Holter and echo NEG IN 2012H/o Gastric polyps, s/p removal Jennifer Terry MD [address], [place], [address], [employer] 08/17/2024 14:47:41 OBGyn Episode No OBEpisode recorded.
--- OUTSIDE RECORDS SUMMARY | 2024-09-05 10:46 | XMS_ITS ---
Author Organization [facility] [place] Address [address] [place] [address] Care Team Providers Care Assistant Principal Name Role Phone Mara MINOR, Philippe Primary Care Provider Unavail able Cami Rice Unavailable [phone] Allergies Allergen (clinical drug ingredient) Drug/Non Drug [...] (substance) Penicillins Unknown Drug Allergy 09/10/2023 Active REASON FOR VISIT 3 week follow up [facility] Medications Medication SIG (Take, Route, Frequency, Duration) Notes Start Date End Date Status Losartan Potassium 25 MG Oral 09/10/2023 Not-Taking Benzonatate 200 MG Oral 09/10/2023 Not-Taking hydrOXYzine HCl 10 MG 1 tablet as needed Orally three times a day for 90 days As needed Active Doxycycline Hyclate 100 MG Oral 09/10/2023 Not-Taking Metoprolol Succinate ER 50 MG Oral 09/10/2023 Not-Taking Venlafaxine HCl ER 37.5 MG Oral 09/10/2023 Not-Taking DULoxetine HCl 60 MG Oral 09/10/2023 Not-Taking traZODone HCl 50 MG Oral 09/10/2023 Not-Taking PARoxetine HCl 30 MG 1 tablet in the morning Oral Once a day for 90 days 09/10/2023 Not-Taking lamoTRIgine 25 MG 1 tablet daily for 2 weeks then increase to 2 tablets daily Orally 1 tablet daily for 2 weeks then increase to 2 tablets daily for 30 days 06/08/2024 Not-Taking hydroCHLOROthiazide 25 MG Oral 09/10/2023 Active Losartan Potassium 50 MG Oral 09/10/2023 Active busPIRone HCl 10 MG 1 tablet Oral three times a day for 90 days 09/10/2023 11/06/2024 Active ALPRAZolam 0.25 MG 1 tablet Oral once a day for 30 days PRN 07/14/2024 Active ProAir HFA 108 (90 Base) MCG/ACT Inhalation 09/10/2023 Active Ondansetron 4 MG 1 tablet on the tongue and allow to dissolve Orally twice a day for 30 days 09/05/2024 Active Vitamin D 50 MCG (2000 UT) 1 tablet Oral ly once a week 02/03/2024 Active Vortioxetine HBr 5 MG 1 tablet Orally Once a day for 30 days Active Social History Sex Assigned At : Social History Observation Description Sex Assigned At Female Vital Signs Blood pressure systolic 106 mm Hg 09/06/19 25 Blood pressure diastolic 69 mm Hg 025 Heart Rate 68 /min 09/05/2024 Respiratory Rate 16 /min 09/05/2024 Height 62.00 in 09/05/2024 Weight 201.4 lbs 09/05/2024 BMI 36.83 kg/m2 09/05/2024 Height-cm 157.48 cm 09/05/2024 Weight-kg 91.35 kg 09/05/2024 Encounters Encounter Location Date Provider Diagnosis [facility] [employer] [facility] [address] [address] 09/05/2024 Cami Rice Encounter for screen ing for depression Z13.31 ; Generalized anxiety disorder F41.1 ; MDD (major depressive disorder), recurrent episode, moderate F33.1 ; Insomnia due to other mental disorder F51.05 ; 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 Depression- continue depression and anxiety discuss with patient Paxil and over age 60, benefits, risk, side effects, and monitor - see fire boat engineer and heart monitor scheduled discuss risk QTC/QT [...] no plan or intent schedule to see Corn Lab Technician for chest pain- had test done and [...] Sleep- sleep hygiene http_s://www.claudia .org/About-Mental -Illness/Mental-H ealth-Conditions http_s://psych[facility] Groupn Itouzi.com.[employer]/depressi on/the-cognitive- vrfigjwr-nm-cpagb ssion#treatments http__s://www.nim .nih.gov/health/ topics/mental-hea lth-medications http__s://www.nam i.org/About-Menta [...] risk, side effects, and monitor - see fire boat engineer and heart monitor scheduled discuss risk QTC/QT [...] no plan or intent schedule to see Corn Lab Technician for chest pain- had test done and [...] http_s://www.claudia .org/About-Mental -Illness/Mental-H ealth-Conditions http_s://psychcen tral.com/depressi on/the-cognitive- cswmadtt-by-wrepb ssion#treatments http__s://www.[facility].nih.gov/health/ topics/mental-hea [facility]-medications http__s://www.nam i.org/About-Menta l-Illness/Treatme nts/Mental-Health -Medications educated on [...] risk, side effects, and monitor - see fire boat engineer and heart monitor scheduled discuss risk QTC/QT [...] no plan or intent schedule to see Corn Lab Technician for chest pain- had test done and [...] Sleep- sleep hygiene http_s://www.claudia .org/About-Mental -Illness/Mental-H ealth-Conditions http_s://[employer]/depressi on/the-cognitive- ssdltmyv-xb-ogvjx ssion#treatments http__s://www.nim .nih.gov/health/ topics/mental-hea lth-medications http__s://www.nam i.org/About-Menta [...] risk, side effects, and monitor - see fire boat engineer and heart monitor scheduled discuss risk QTC/QT [...] no plan or intent schedule to see Corn Lab Technician for chest pain- had test done and [...] Sleep- sleep hygiene http_s://www.claudia .org/About-Mental -Illness/Mental-H ealth-Conditions http_s://[employer]/depressi on/the-cognitive- ofkaiimq-fs-srpzm ssion#treatments http__s://www.nim h.nih.gov/health/ topics/mental-hea lth-medications http__s://www.nam i.org/About-Menta [...] and interactions with prescribed medications. 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 Depression- continue depression and anxiety discuss with patient Paxil and over age 60, benefits, risk, side effects, and monitor - see fire boat engineer and heart monitor scheduled discuss risk QTC/QT [...] no plan or intent schedule to see Corn Lab Technician for chest pain- had test done and [...] http_s://www.claudia .org/About-Mental -Illness/Mental-H ealth-Conditions http_s://psychcen tral.com/depressi on/the-cognitive- uiqbtdmr-qz-wvtcw ssion#treatments http__s://www.nim h.nih.gov/health/ topics/mental-hea [facility]-medications http__s://www.nam i.org/About-Menta l-Illness/Treatme nts/Mental-Health -Medications educated on [...] risk, side effects, and monitor - see fire boat engineer and heart monitor scheduled discuss risk QTC/QT [...] no plan or intent schedule to see Corn Lab Technician for chest pain- had test done and [...] sleep hygiene http_s://www.claudia .org/About-Mental -Illness/Mental-H ealth-Conditions http_s://psychcen Dwllrl.com/depressi on/the-cognitive- kzavplab-xk-nybon ssion#treatments http__s://www.nim .nih.gov/health/ topics/mental-hea lth-medications http__s://www.nam i.org/About-Menta [...] risk, side effects, and monitor - see fire boat engineer and heart monitor scheduled discuss risk QTC/QT [...] no plan or intent schedule to see Corn Lab Technician for chest pain- had test done and [...] Sleep- sleep hygiene http_s://www.claudia .org/About-Mental -Illness/Mental-H ealth-Conditions http_s://[employer]acker/depressi on/the-cognitive- jwnqaslq-yx-nanpn ssion#treatments http__s://www.nim h.nih.gov/health/ topics/mental-hea lth-medications http__s://www.nam i.org/About-Menta [...] potential neurotoxicity and interactions with prescribed medications. Plan Of Treatment Medication Medication Name Sig Start Date Stop Date Notes hydrOXYzine HCl 10 MG 1 tablet as needed Orally three times a day for 90 days Ondansetron 4 MG 1 tablet on the tong ue and allow to dissolve Orally twice a day for 30 days 09/05/2024 Vortioxetine HBr 5 MG 1 tablet Orally On ce a day for 30 days Treatment Notes Assessment Notes Generalized anxiety disorder Generalized Anxiety Disorder: Care Instructions material was [...] Learning About Anxiety Disorders material was published MDD (major depressive disord er), recurrent episode, moderate Preventing Depression From Coming Back: Care Instructions material was published, Depression Treatment: Care Instructions material was published, Seasonal Affective Disorder: Care Instructions material was published, Learning About How to Get Help During a Mental Health Crisis material was published 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 M edication Refill: Care Instructions material was published, Medication Refill: Care Instructions material was published, Medication Refill: Care Instructions material was published Next Appt Details Follow Up: 3 Weeks, Reason: medication follow up [facility] Provider Name:Molly Mcallister, 09/25/2024 11:00:00 AM, [address], [address], [place], [address], Provider Name:Molly Mcallister, 10/10/2024 03:00:00 PM, [address], [address], [place], [address], Provider Name:Molly Mcallister, 10/23/2024 01:00:00 PM, [address], [facility] [address], [place], [address], Progress Notes * SVEN PAPPAS LDOB:1965 ( 59 yo F)Acc No.[id number]:09/05/2024 Patient: SVEN MARTINS Provider: ALESHA WOODS :1965 A ge:59 Y S ex:Female Date:09/05/2024 Address:[address] [place] [address] , [place] , [id number] Pcp:Philippe Terry MD Subjective: * Chief Complaints: * 1 . 3 week follow up [facility]. * HPI: D epression Screening: GANESH-7 (2018 Edition) F eeling nervous, anxious, or on edge N early every day N ot being able to stop or control worrying?Nearly every day W orrying too much about different things N early every day T rouble relaxing N early every day B eing so restless that it is hard to sit still N early every day B ecoming easily annoyed or irritable N early every day F eeling afraid as if something awful might happen M ore than half the days T otal GANESH-7 Score 2 0 I f you checked any problems, how difficult have they made it for you to do your work, take care of things at home, or get along with other people? V herminia difficult I nterpretation of Total ( 15 and over) Severe C [place]-Suicide Severity Rating Scale: Suicide Risk (CSRS-screener) i n the past one month Have you wished you were or wished you could go to sleep and not wake up? Y es i n the past one month Have you actually had any thoughts of killing yourself? N o H ave you ever done anything, started to do anything, or prepared to do anything to end your life? N o D epression screening: PHQ-9 L ittle interest or pleasure in doing things?More than half the days F eeling down, depressed, or hopeless M ore than half the days T rouble falling or staying asleep, or sleeping too much S ever F eeling tired or having little energy S P oor appetite or overeating N early every day F eeling bad about yourself or that you are a failure, or have let yourself or your family down M ore than half the days T rouble concentrating on things, such as reading the newspaper or watching television S M oving or speaking so slowly that other people could have noticed; or the opposite, being so fidgety or restless that you have been moving around a lot more than usual S T houghts that you would be better off or of hurting yourself in some way S (Consider Suicide Assessment Risk) T otal Score 1 4 I nterpretation M oderate Depression Intervention D epression Screening Findings P ositve F ollow-Up for Depression M [facility] treatment assessment, Patient follow-up to return when and if necessary S uicide Risk Assessment Performed 0 08/17/2024 no SI/HI no plans or intent A dditional Evaluation for Depression P sychiatric interview and evaluation N jhoan of the standardized tool used for adult depression screening: P atient Health Questionnaire (PHQ-9) H istory of Presenting Problem: Depression screening positive Depression screening positive BP normal Depression screening positive BP normal. Follow up visit depression, anxiety, sleep chronic since last visit reported [facility] nausea on it, I only taken 5 mg dose so far with nausea I had a day with vomiting and I tried 10 mg dose once and more nausea and went back to 5 mg dose, depression and anxiety both there and saw therapy today and if I can get past Nausea I will be better, I take it with food at night, I am down with not feel better and stomach issues, and I have diarrhea, I been on rx 3 weeks, no h opeless and helpless I feel like if past stomach issues I can concentrate on getting better, no psychosis no vince, no delusions, no paranoia, no abnormal involuntary movement reported o r noted, no Xanax since last visit, I take Vistaril for anxiety I been taking it TID, helps anxiety I can tell if I do not take it, Buspar TID also, sleep been realy pretty good, appetite simple foods, I was able to eat a good meal Wednesday, no SI/HI. I am not having heart palpitations now, I also moved Facebook screen not to be on it as much. discuss Paxil and being over age 60 and cardiac s/s to monitor for and risk QTC/QT- see fire boat engineer - ordered heart monitor - not had yet, b ladder issues with PT for it, improved no SI/HI, no plans or intent had CT heart for blockages I have none and stress test last year, Corn Lab Technician 06/29/24 heart monitor - reported will be done later sent back related to having a surgical procedure first - bladdder biopsy 09/08 m edical- fibro and periodic movement d/o and CPAP p ain - High tone pelvic dysfunction- in PT hx rx Cymbalta (contispation, dry mouth, sweating), Effexor (palpitation, pain left arm, heart race) , Trazodone, Buspar, Paxil, Xanax, Wellbutrin took 2 weeks (diarrhea), Seroquel (fatigue), Abilify 2mg and 5 mg (restless and chest pain), Zoloft (does not tolerate 100 mg dose increase anxiety), Viibyrd (SI thoughts), Vistaril Denies SI/HI no plans or intent no thoughts harm to self or others, no past attempts, no past psychiatric hosptial, no self cutting, no self harm, FH nephew attempts, weapons in home unsure where located, - gunsadvance care planning discuss. E lderly Maltreatment: Screening Questions P hysical Abuse - Infliction of physical injury by punching, beating, kicking, biting, burning, shaking, or other actions that result in harm.?No E motional/Psychological Abuse - Willful infliction of mental or emotional anguish by threat, humiliation, isolation, or other verbal or nonverbal conduct. N o N eglect - Involves attitudes of others or actions caused by others - such as family members, friends, or institutional caregivers - that have an extremely detrimental effect upon well-being N o S exual Abuse - Forcing of undesired sexual behavior by one person upon another against their will who are either competent or unable to fully comprehend and/or give consent. This may also be called molestation. N o E lder Abandonment - Desertion of an elderly person by an individual who has assumed responsibility for providing care for an elder, or by a person with physical custody of an elder N o F inancial or Material Exploitation - Taking advantage of a person for monetary gain or profit N o U nwarranted Control - Controlling a person's ability to make choices about living situations, household finances, and medical care. N o Screening Results R esults E lder maltreatment screen documented as negative, follow-up is not required (G8734) Elder maltreatment screen documented as negative, follow-up is not required. * ROS: P erformance Met: N ormal blood pressure reading documented, follow-up not required ( G8783) r eports no shortness of breath reported see fire boat engineer 06/29/24 no palpitations, no known heart murmur, and no ankle swelling; - heart monitor scheduled- fire boat engineer r eports abdominal pain, reported nausea, no vomiting (had 1x), no constipation, normal appetite, reported diarrhea, and no GERD; hx weight loss 15 pounds n o cough- r eports no h eadaches and no migraines none but reports no loss of consciousness, no weakness, no numbness, no seizures, no dizziness, no tremor, no gait dysfunction, and no paralysis. r eports no sleep disturbances and no restless sleep, and no memory loss b ut reports depression, feeling safe in a relationship, no alcohol abuse, reported anxiety, no hallucinations, no suicidal thoughts, no mood swings,no agitation, r eports no fatigue. reports no fever, no significant weight gain, and reported weight loss. reports no incontinence, no difficulty urinating, and no increased frequency.- reported pain and High tone pelvic dysfunction- hx PT seen urologist r eports no muscle aches, no muscle weakness, reported arthralgias/joint pain, no back pain, no swelling in the extremities, no neck pain, and no difficulty walking. * Medical History: P roblems: Generalized anxiety disorder, Insomnia disorder related to another mental disorder, Long-term drug therapy, Mild recurrent major depression, ,, Fibromylgia, Periodic movement d/o, Sleep apnea, Past Psychiatric History: Anxiety Disorder,Major Depressive Episode, abdominal aortic aneurysm: No, atrial fibrillation: No, chronic fatigue syndrome: Yes, essential tremor: No, hyperlipidemia: No, hypertension: Yes, Parkinson's disease: No, restless leg syndrome: No, stroke: No, subdural hematoma: No, type 1 diabetes mellitus: No, type 2 diabetes mellitus: No, vitamin B12 deficiency: No, vitamin D deficiency: Yes. * Medications: T aking Vitamin D 50 MCG (2000 UT) Tablet 1 tablet Orally once a week , Taking Losartan Potassium 50 MG Tablet Oral , Taking hydroCHLOROthiazide 25 MG Tablet Oral , Taking ProAir HFA 108 (90 Base) MCG/ACT Aerosol Solution Inhalation , Taking ALPRAZolam 0.25 MG Tablet 1 tablet Oral once a day , Notes to Pharmacist: PRN, Taking busPIRone HCl 10 MG Tablet 1 tablet Oral three times a day , stop date 11/06/2024, Taking Vortioxetine HBr 5 MG Tablet 1 tablet Orally Once a day , Notes to Pharmacist: Mehranoft, Taking hydrOXYzine HCl 10 MG Tablet 1 tablet as needed Orally 3 times a day As needed, Not-Taking PARoxetine HCl 30 MG Tablet 1 tablet in the morning Oral Once a day , Not-Taking lamoTRIgine 25 MG Tablet 1 tablet daily for 2 weeks then increase to 2 tablets daily Orally 1 tablet daily for 2 weeks then increase to 2 tablets daily , Not-Taking traZODone HCl 50 MG Tablet Oral , Not-Taking DULoxetine HCl 60 MG Capsule Delayed Release Particles Oral , Not-Taking Venlafaxine HCl ER 37.5 MG Capsule Extended Release 24 Hour Oral , Not-Taking Losartan Potassium 25 MG Tablet Oral , Not-Taking Metoprolol Succinate ER 50 MG Tablet Extended Release 24 Hour Oral , Not-Taking Doxycycline Hyclate 100 MG Tablet Oral , Not-Taking Benzonatate 200 MG Capsule Oral , Medication List reviewed and reconciled with the patient * Allergies: S ULFA (SULFONAMIDE ANTIBIOTICS): Allergy - Onset Date 09/10/2023, Cymbalta: Allergy - Onset Date 09/10/2023, Iodine: Allergy - Onset Date 09/10/2023, Wellbutrin: Allergy - Onset Date 09/10/2023, Penicillins: Allergy - Onset Date 09/10/2023, Viibryd: suicide thoughts. Objective: * Vitals: B P:106/69mm Hg, HR:68/min, RR:16/min, Wt:201.4lbs, Wt-k.35 kg, Ht: 62.00 in, Ht-cm: 157.48 cm, BMI:36.83Index, Body Surface Area: 2. * Examination: P sychiatry: Appearance: w ell-groomed, well-nourished, appears stated age. Abnormal body movements: n one. Affect / mood: a ppropriate, full range. Aggression: l ow. Anger control: g ood. Attention: g ood. Attitude: c ooperative. Gait s teady. Homicidal ideation: n one. Suicidal ideation: n one today. Memory status: n o impairment noted. Degree of awareness of surroundings: w ithin normal limits.? Delusions: n o. Hallucinations: n o. Impulse control: g ood. Insight: g ood. Intellectual functioning: a verage. Comprehension - Intellectual function: average. Judgement: g ood. Orientation: a wake, alert and oriented x 3. Perceptual disorders: n o perceptual disorder noted. Psychomotor activity: w ithin normal range. Sexual impulse control: g ood. Speech / language: a ppropriate pitch/modulation, clear and coherent, normal rate, volume, and articulation (RVR), proper grammar used. Thought content: a ppropriate. Thought process: i ntact. Assessment: * Assessment: 1. M DD (major depressive disorder), recurrent episode, moderate - F33.1 (Primary) ?2. E ncounter for screening for depression - Z13.31 3 . G eneralized anxiety disorder - F41.1 4 . I nsomnia due to other mental disorder - F51.05 & #160; 5 . O ther assisted (current) drug therapy - Z79.899 6 . E ncounter for screening for cardiovascular disorders - Z13.6 7 . N ausea and vomiting, unspecified vomiting type - R11.2 1. Depression- continue depr ession and anxiety discuss with patient Paxil and over age 60, benefits, risk, side effects, and monitor - see fire boat engineer and heart monitor scheduled discuss risk QTC/QT [...] no plan or intent schedule to see Corn Lab Technician for chest pain- had test done and [...] day PRN has helped Sleep- sleep hygiene http_s://www.claudia.org/Szugd-Lhctwm-Drmazcw/Qmuhpm-Ipjddy-Fqnrbvwklg http_s://psychcentral.com/depression/qpn-zykzzkwtk-teagykwy-of-depression#treatm ents http__s://www.nimh.nih.gov/health/topics/ktkleo-sqlgqa-yxqbzybiams http__s://www.claudia.org/Xfabi-Qqyovg-Flhzizx/Treatments/Cdqgol-Fndtne-Tbbcctmdhue educated on all medications, benefits, side effects [...] effects including loss of libido, increased suicidal thoughts/behaviors in children and young adults, and serotonin syndrome. Medication Management and Follow-Up - Plan: - Schedule follow-up appointments every 1-3 months to monitor the patient's response to the medication regimen. - Reinforce the importance of avoiding recreational drug use due to potential neurotoxicity and interactions with prescribed medications. Plan: * Treatment: 2. G eneralized anxiety disorder Refill hydrOXYzine HCl Tablet, 10 MG, 1 tablet as needed, Orally, three times a day As needed, 90 days, 270 Tablet, Refills 0. Notes: Generalized Anxiety Disorder: Care Instructions material was [...] Learning About Anxiety Disorders material was published 3. 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 N ausea and vomiting, unspecified vomiting type Start Ondansetron Tablet Disintegrating, 4 MG, 1 tablet on the tongue and allow to dissolve, Orally, twice a day, 30 days, 60 Tablet, Refills 0. * Procedure Codes: 9 6127 BEHAV ASSMT W/SCORE & DOCD/STAND INSTRUMENT, G8734 ELDER MALTX SCR DOC NEG NO F/U RQR, 1123F ACP DISCUSS/DSCN MKR DOCD, 1036F TOBACCO NON-USER, G8783 NORMAL BP READING DOC F/U NOT RQR, G2211 VISIT COMPLEXITY INHERENT TO ONGOING CARE RELATED TO A PATIENT'S SINGLE, SERIOUS CONDITION OR A COMPLEX CONDITION, G8431 CLIN DEPRESSION SCREEN DOC, G8752 MOST RECENT SYSTOLIC BP < 140MM HG, G8754 MOST RECENT DIASTOLIC BP < 90MM HG * Preventive Medicine: Counseling: A dvance Care Planning Date of last Advance Care Planning:?09/05/2024 ____ MIPS Type of advance care directives: L iving Will, Durable power of certified legal investigator for healthcare * Follow Up: 3 Weeks (Reason: medication follow up [facility]) * Billing Information: * Visit Code: 04095 OFFICE OUTPATIENT VISIT 25 MINUTES DETAILED HISTORY AND EXAM/MODERATE MEDICAL DECISION MAKING. * Procedure Codes: 65372 BEHAV ASSMT W/SCORE & DOCD/STAND INSTRUMENT. G8734 ELDER MALTX SCR DOC NEG NO F/U RQR. 1123F ACP DISCUSS/DSCN MKR DOCD. 1036F TOBACCO NON-USER. G8783 NORMAL BP READING DOC F/U NOT RQR. G2211 VISIT COMPLEXITY INHERENT TO ONGOING CARE RELATED TO A PATIENT'S SINGLE, SERIOUS CONDITION OR A COMPLEX CONDITION. G8431 CLIN DEPRESSION SCREEN DOC. G8752 MOST RECENT SYSTOLIC BP < 140MM HG. G8754 MOST RECENT DIASTOLIC BP < 90MM HG. * Sign off status: Completed true * Provider: ALESHA WOODS Date: 09/05/2024 Generated for Ezra grullon/Joaquim/Arron on: 09/05/2024 10:45 AM CDT History and Physical Notes * HPI (History of Present Illness) Category Sub-Category Detail Notes Category Not es History of Presenting Problem Follow up visit depression, anxiety, sleep chronic since last visit reported [facility] nausea on it, I only taken 5 mg dose so far with nausea I had a day with vomiting and I tried 10 mg dose once and more nausea and went back to 5 mg dose, depression and anxiety both there and saw therapy today and if I can get past Nausea I will be better, I take it with food at night, I am down with not feel better and stomach issues, and I have diarrhea, I been on rx 3 weeks, no hopeless and helpless I feel like if past stomach issues I can concentrate on getting better, no psychosis no vince, no delusions, no paranoia, no abnormal involuntary movement reported or noted, no Xanax since last visit, I take Vistaril for anxiety I been taking it TID, helps anxiety I can tell if I do not take it, Buspar TID also, sleep been realy pretty good, appetite simple foods, I was able to eat a good meal Wednesday, no SI/HI. I am not having heart palpitations now, I also moved [employer] screen not to be on it as much. discuss Paxil and being over age 60 and cardiac s/s to monitor for and risk QTC/QT- see fire boat engineer - ordered heart monitor - not had yet, bladder issues with PT for it, improved no SI/HI, no plans or intent had CT heart for blockages I have none and stress test last year, Corn Lab Technician 06/29/24 heart monitor - reported will be done later sent back related to having a surgical procedure first - bladdder biopsy 09/08 medical- fibro and periodic movement d/o and CPAP pain - High tone pelvic dysfunction- in PT hx rx Cymbalta (contispation, dry mouth, sweating), Effexor (palpitation, pain left arm, heart race) , Trazodone, Buspar, Paxil, Xanax, Wellbutrin took 2 weeks (diarrhea), Seroquel (fatigue), Abilify 2mg and 5 mg (restless and chest pain), Zoloft (does not tolerate 100 mg dose increase anxiety), Viibyrd (SI thoughts), Vistaril Denies SI/HI no plans or intent no thoughts harm to self or others, no past attempts, no past psychiatric hosptial, no self cutting, no self harm, FH nephew attempts, weapons in home unsure where located, - guns advance care planning discuss Depression screening PHQ-9 Little interest or pleasure in doing things: More than half the days Feeling down, depressed, or hopeless: Mo re than half the days Trouble falling or staying asleep, or sl eeping too much: Several days Feeling tired or having little energy: S everal days Poor appetite or overeating: Nearly ever y day Feeling bad about yourself o r that you are a failure, or have let yourself or your family down: More than half the days Trouble concentrating on thi ngs, such as reading the newspaper or watching television: Several days Moving or speaking so slowly that other people could have noticed; or the opposite, being so fidgety or restless that you have been moving around a lot more than usual: Several days Thoughts that you would be b shamika off or of hurting yourself in some way: Several days (Consider Suicide Assessment Risk) Total Score: 14 Interpretation: Moderate Depression Intervention Depression Screening Findings: P ositve Follow-Up for Depression: [facility] health treatment assessment, Patient follow-up to return when and if necessary Suicide Risk Assessment Performed: 08/17 no SI/HI no plans or intent Additional Evaluation for De pression: Psychiatric interview and evaluation Name of the standardized too l used for adult depression screening:: Patient Health Questionnaire (PHQ-9) Depression Screening GANESH-7 (2018 Edition) Soco g nervous, anxious, or on edge: Nearly every day Not being able to stop or control worryi ng: Nearly every day Worrying too much about different things : Nearly every day Trouble relaxing: Nearly every day Being so restless that it is hard to sit still: Nearly every day Becoming easily annoyed or irritable: Ne aditi every day Feeling afraid as if something awful yaima ht happen: More than half the days Total GANESH-7 Score: 20 If you checked any problems, how difficult have they made it for you to do your work, take care of things at home, or get along with other people?: Very difficult Interpretation of Total: (15 and over) S evere Elderly Maltreatment Screening Questions Physica l Abuse - Infliction of physical injury by punching, beating, kicking, biting, burning, shaking, or other actions that result in harm.: No Elder maltreatment screen documented as negative, follow-up is not required Emotional/Psychological Abus e - Willful infliction of mental or emotional anguish by threat, humiliation, isolation, or other verbal or nonverbal conduct.: No Neglect - Involves attitudes of others or actions caused by others - such as family members, friends, or institutional caregivers - that have an extremely detrimental effect upon well-being: No Sexual Abuse - Forcing of un desired sexual behavior by one person upon another against their will who are either competent or unable to fully comprehend and/or give consent. This may also be called molestation.: No Elder Abandonment - Desertio n of an elderly person by an individual who has assumed responsibility for providing care for an elder, or by a person with physical custody of an elder: No Financial or Material Exploi tation - Taking advantage of a person for monetary gain or profit: No Unwarranted Control - Contro lling a person's ability to make choices about living situations, household finances, and medical care.: No Screening Results Results: Elder maltr eatment screen documented as negative, follow-up is not required (G8734) [place]-Suicide Severity Rating Scale Suicide Risk (CSRS-screener) in the past one month Have you wished you were or wished you could go to sleep and not wake up?: Yes in the past one month Have y ou actually had any thoughts of killing yourself?: No Have you ever done anything, started to do anything, or prepared to do anything to end your life?: No Examination Category Sub-Category Detail Notes Category Not es Psychiatry Appearance: well-groomed, we ll-nourished, appears stated age Attitude: cooperative Psychomotor activity: within normal rang e Abnormal body movements: none Attention: good Degree of awareness of surroundings: wit hin normal limits Orientation: awake, alert and amber ented x 3 Affect / mood: appropriate, full ra nge Speech / language: appropriate pitch/mo dulation, clear and coherent, normal rate, volume, and articulation (RVR), proper grammar used Insight: good Judgement: good Thought process: intact Thought content: appropriate Perceptual disorders: no perceptual diso rder noted Aggression: low Anger control: good Suicidal ideation: none today Homicidal ideation: none Intellectual functioning: average Impulse control: good Sexual impulse control: good Memory status: no impairment noted Delusions: no Hallucinations: no Comprehension - Intellectual function: a verage Gait steady
--- OUTSIDE RECORDS SUMMARY | 2024-09-05 10:46 | XMS_ITS | CONTINUITY OF CARE DOCUMENT ---
Author Name ashli ashli Address Unknown Organization [facility] Address [address] [place] [address] Phone [phone] Care Team Providers Care Computer Engineering Technician Name Role Phone Nabor MINOR, Neo Unavailable Philippe Terry MD Unavailable Philippe Terry MD Unavailable [phone] INSURANCE PROVIDERS Payer name Policy type / Coverage type [place] red alliance party ID [facility] [employer] insurance [employer] [id number]
--- OUTSIDE RECORDS SUMMARY | 2024-09-05 10:46 | XMS_ITS | Encounter Summary ---
Author Organization [facility] Address [address] [place] [address] Care Team Providers Care Hands Hanger Name Role Phone Philippe Terry MD Primary Care Provider [phone] Encounter Details Date Type Department Care Team (Late st Contact Info) Description 03/30/2022 Abstract [facility] [address] Sam Lin MA Social History Tobacco Use Types Packs/Day Years Used Date Smoking Tobacco: Never Smokeless Tobacco: Never Alcohol Use Standard Drinks/Week Comments Not Currently 0 (1 standard drink = 0.6 oz pur e alcohol) PHQ-2 Answer Date Recorded PHQ-2 Score - If the patient scores above 3, please move on to questions 3-9 0 08/27/2021 Comments No Sex and Gender Information Value Date Recorded Sex Assigned at Female 06/29/2024 11:57 AM LITHOGRAPHIC PLATE MAKER APPRENTICE Legal Sex Female 8:31 PM CDT Gender Identity Not on file Sexual Orientation Not on file COVID-19 Exposure Response Date Recorded In the last 10 days, have yo u been in contact with someone who was confirmed or suspected to have Coronavirus/COVID-19? No / Unsure 03/31/2022 12:39 PM LITHOGRAPHIC PLATE MAKER APPRENTICE documented as of this encounter Plan of Treatment Upcoming Encounters Date Type Department Care Team (Late st Contact Info) Description 07/05/2025 11:00 AM LITHOGRAPHIC PLATE MAKER APPRENTICE Office Visit [facility], [address] [address] Pb Galindo MD [facility] [address] [place] [address] documented as of this encounter Procedures Procedure Name Priority Date/Time Associated Diagnosis Comments BASIC METABOLIC PANEL Routine 06/28/2023 LIPID PANEL Routine 06/28/2023 BASIC METABOLIC PANEL Routine 07/28/2022 BASIC METABOLIC PANEL Routine 06/30/2022 BUN (OUTSIDE LAB) Routine 05/25/2022 CREATININE Routine 05/25/2022 LIPID PANEL Routine 03/27/2022 THYROID STIM HORMONE TSH Routine 03/27/2022 documented in this encounter Results * (ABNORMAL) BASIC METABOLIC PANEL (06/28/2023) SODIUM S/P/B 141 POTASSIUM S/P/B 4.6 CO2 25 CHLORIDE S/P/B 101 GLUCOSE 134 mg/dL CALCIUM S/P/B 9.2 BUN 11 CREATININE S/P/B 0.70 0.5 - 1.0 EGFR NON-AFR. AMER. 99(A) <=90 06/28/2023 us Default History Genericprovider LABORATORY Edited Result - Final * LIPID PANEL (06/28/2023) CHOLESTEROL 166 HDL 48 TRIGLYCERIDES 101 LDL (CALCULATED) 99 06/28/2023 us Default History Genericprovider LABORATORY Final Result * BASIC METABOLIC PANEL (07/28/2022) SODIUM S/P/B 143 POTASSIUM S/P/B 4.2 CO2 24 CHLORIDE S/P/B 104 GLUCOSE 137 mg/dL CALCIUM S/P/B 9.6 BUN 11 CREATININE S/P/B 0.77 0.5 - 1.0 EGFR NON-AFR. AMER. 89 <=90 07/28/2022 us Default History Genericprovider LABORATORY Final Result * (ABNORMAL) BASIC METABOLIC PANEL (06/30/2022) SODIUM S/P/B 139 POTASSIUM S/P/B 4.4 CO2 28 CHLORIDE S/P/B 99 GLUCOSE 130 mg/dL CALCIUM S/P/B 9.4 BUN 13 CREATININE S/P/B 0.71 0.5 - 1.0 EGFR NON-AFR. AMER. 98(A) <=90 06/30/2022 Default History Genericprovider LABORATORY Final Result * CREATININE (05/25/2022) Pathologist [facility] CREATININE S/P/B 0.81 0.5 - 1.0 EGFR NON-AFR. AMER. 84 <=90 05/25/2022 Default History Genericprovider LABORATORY Final Result * BUN (OUTSIDE LAB) (05/25/2022) Pathologist [facility] BUN 13 05/25/2022 Default History Genericprovider LAB-OUTSIDE/ABST RACTED Edited Result - Final * THYROID STIM HORMONE, TSH (03/27/2022) Pathologist [facility] TSH 0.692 03/27/2022 Default History Genericprovider LABORATORY Edited Result - Final * LIPID PANEL (03/27/2022) CHOLESTEROL 175 HDL 40 TRIGLYCERIDES 124 LDL (CALCULATED) 113 03/27/2022 us Default History Genericprovider LABORATORY Final Result documented in this encounter Visit Diagnoses Not on filedocumented in this encounter Care Teams Hands Hanger Relationship Specialty Start Date End Date Philippe Terry MD PCP - General INTERNAL MEDICINE 05/05/18 documented as of this encounter
--- OUTSIDE RECORDS SUMMARY | 2024-09-05 10:46 | XMS_ITS | Encounter Summary ---
Author Organization [facility] Address [address] [place] [address] Care Team Providers Care Sugar Presser Name Role Phone Philippe Terry MD Primary Care Provider Encounter Details Date Type Department Care Team (Late Contact Info) Description 01/19/[address] [facility] [address] [place], [place] [id number] Shaun Barney MD [address] [address] [place], [place] [id number] Social History Tobacco Use Types Packs/Day Years Used Date Smoking Tobacco: Never Smokeless Tobacco: Never Alcohol Use Standard Drinks/Week Comments Not Currently 0 (1 standard drink = 0.6 oz pur e alcohol) Comments No Sex and Gender Information Value Date Recorded Sex Assigned at Female 06/29/2024 11:57 AM ASSISTANT CASE MANAGER Legal Sex Female 8:31 PM CDT Gender Identity Not on file Sexual Orientation Not on file COVID-19 Exposure Response Date Recorded In the last month, have you been in contact with someone who was confirmed or suspected to have Coronavirus / COVID-19? No / Unsure 01/16/2020 1:12 PM CDT documented as of this encounter Plan of Treatment Upcoming Encounters Date Type Department Care Team (Late Contact Info) Description 07/05/2025 11:00 AM ASSISTANT CASE MANAGER Office Visit [facility], [address] [address] [place] [address] Pb Galindo MD Three [facility] [address] [place], [place] [id number] documented as of this encounter Results * PRE-SURGICAL/PRE-PROCEDURE CORONAVIRUS (COVID 19) (01/23/2020 2:43 PM CDT) CORONAVIRUS SARS COV 2 PCR (RESP) NOT DETECTED NOT DETECTED 01/24/2020 6:15 PM CDT [facility] Comment: A Not Detected (negative) test result for this test means that SARS- CoV-2 RNA was not present in the specimen above the limit of detection. A negative result does not rule out the possibility of COVID-19 and should not be used as the sole basis for treatment or patient management decisions. If COVID-19 is still suspected, based on exposure history together with other clinical findings, re-testing should be considered in consultation with public health authorities. Laboratory test results should always be considered in the context of clinical observations and epidemiological data in making a final diagnosis and patient management decisions. Please review the Fact Sheets and FDA authorized labeling available for health care providers and patients using the following websites: https://www.ApplyKit.com/home/Covid-19/HCP/QuestIVD/fact- sheet.html https://www.ApplyKit.Topmission/home/Covid-19/Patients/ QuestIVD/fact-sheet.html This test has been authorized by the FDA under an Emergency Use Authorization (EUA) for use by authorized laboratories. Due to the current public health emergency, [facility] is receiving a high volume of samples from a wide variety of swabs and media for COVID-19 testing. In order to serve patients during this public health crisis, samples from appropriate clinical sources are being tested. Negative test results derived from specimens received in non-commercially manufactured viral collection and transport media, or in media and sample collection kits not yet authorized by FDA for COVID-19 testing should be cautiously evaluated and the patient potentially subjected to extra precautions such as additional clinical monitoring, including collection of an additional specimen. Methodology: Nucleic Acid Amplification Test (NAAT) includes PCR or TMA Additional information about COVID-19 can be found at the [facility] website: www.Dtime/Covid19. Test performed at [facility] [place] [address] [place] [address] Director: ULISES COTO DO,MPH FIRST TEST UNKNOWN 01/23/2020 2:41 PM CDT [facility] EMPLOYED IN HEALTHCARE UNKNOWN 01/23/2020 2:41 PM CDT [facility] SYMPTOMATIC DEFINED BY CDC UNKNOWN 01/23/2020 2:41 PM CDT [facility] DATE OF SYMPTOM ONSET UNKNOWN 01/23/2020 2:41 PM CDT [facility] HOSPITALIZATION STATUS UNKNOWN 01/23/2020 2:41 PM CDT [facility] PATIENT IN ICU UNKNOWN 01/23/2020 2:41 PM CDT [facility] RESIDENT OF [facility] UNKNOWN 01/23/2020 2:41 PM CDT [facility] UNKNOWN 01/23/2020 2:41 PM CDT [facility] PATIENT'S RACE UNKNOWN 01/23/2020 2:41 PM CDT [facility] ETHNICITY UNKNOWN 01/23/2020 2:41 PM CDT [facility] SOURCE (QST) NASOPHARYNGEAL SWAB 01/23/2020 2:41 PM CDT [facility] NASOPHARYNGEAL SWAB / Unknown 01/23/2020 2:43 PM CDT us Shaun Barney MD MICROBIOLOGY - GENERAL ORDERABLE S Final Result [facility] [address] [place] [address], [place] [phone] [facility] [address] [place] [address], documented in this encounter Visit Diagnoses Diagnosis Preop testing- Primary Preoperative examination, unspecified documented in this encounter Additional Health Concerns Infection Onset Date Last Indicated Resolved Time COVID-19 Rule Out 01/23/2020 01/23/2020 01/24/2020 6:16 PM CDT COVID-19 Rule Out 08/25/2020 08/25/2020 08/26/2020 1:16 PM CDT documented as of this encounter Care Teams Sugar Presser Relationship Specialty Start Date End Date Philippe Terry MD PCP - General INTERNAL MEDICINE 05/05/18 documented as of this encounter
== END 2024-09-05 09:38 | disposition home or self-care (01) ==
LOC: ANHSURGERY 09:42
PROVIDERS: Anesthesiology; PCP Internal Medicine; Visit Provider Obstetrics & Gynecology Gynecology
DX: Z79.899 Other long term (current) drug therapy (principal); Z01.818 Encounter for other preprocedural examination
CPT/HCPCS: 36415; 80048

== ENCOUNTER 2024-09-11 02:27 | Day surgery (SDC) | payer MEDICARE, OTHER, SELFPAY ==
[2024-07-27 14:11] VITALS: BMI 40.3
--- NOTE | 2024-07-27 14:17 | PC.NURSE ---
Report to the Outpatient Waiting Room, entrance under the green pavilion located off [facility], at time _0815_ on date _[phone]_. Planned Procedure Time: _1015_.? Time changes happen often and if your time is changed the preop area will call you the afternoon before. - You and your visitor will be asked to self-screen and do not enter if you have any COVID symptoms. Please call surgeon if you need to reschedule. - A mask is optional within the hospital at this time. Patients may have clear liquids (water, carbonated beverages, clear teas, apple juice) until 3 hours prior to surgery with a maximum of 20 ounces. - No food from midnight until time of surgery and no smoking, or chewing tobacco (or any form of nicotine). No chewing gum, candy or mints. Take only the following medications with a SIP of water on the morning of surgery: ____Buspirone and if needed Albuterol____ DO NOT STOP ANY OF YOUR OTHER PRESCRIPTION MEDICATIONS PRIOR TO SURGERY EXCEPT THE FOLLOWING Hold all vitamins and supplements for 3 days per anesthesiologist. Medications to discontinue per physician Date to take last srsd___[id number]____ Please no make-up, nail malaysian, hairspray, perfume, deodorant, or body powder the day of surgery.? No jewelry (including any body piercings) or valuables the day of surgery, leave them at home.? Please take a shower or bath the night before, or the morning of, surgery with an antibacterial soap.? Wear comfortable, loose fitting clothing.? - Jewelry must be removed prior to entering the operating room.? Rings and piercings that are not removed may be cut off. - The hospital will not accept responsibility for valuables.? - Please leave all valuables, including medications, at home the day of surgery. If you are going home after surgery, a licensed mechanic driver must drive you home.? - NO public transportation without another adult if you receive anesthesia. - We recommend that an adult stay with you for 24 hours following discharge. - We also recommend that you do not drive, make important decision, drink alcoholic beverages, or take any drugs that were not prescribed by your health care provider for at least 24 hours after your discharge time. Follow any additional instructions given to you from your surgeon. Telephone instructions given to __Tina__and asked if any additional questions and then verbalized understanding. Patient advised to call surgeon office or pre surgery nurse liaison [phone] if any additional questions.
--- NOTE | 2024-08-31 14:47 | PC.NURSE ---
Surgery Rescheduled - This RN re-verified Pt's Name, , allergies, preferred pharmacy, and updated home med list. At this time the pt. states there have been no changes to the infectious disease questions, PMH, or General admission questions since her last pre-op interview on 07/27/2024. Updated pre-op instructions have been given over the phone and will be available for pickup at PAT station when pt comes in for pre-op testing. Report to the Outpatient Waiting Room, entrance under the green pavilion located off [facility], at time _0700_ on date _[phone]_. Planned Procedure Time: _0900_.? Time changes happen often and if your time is changed the preop area will call you the afternoon before. - You and your visitor will be asked to self-screen and do not enter if you have any COVID symptoms. Please call surgeon if you need to reschedule. - A mask is optional within the hospital at this time. Patients may have clear liquids (water, carbonated beverages, clear teas, apple juice) until 3 hours prior to surgery with a maximum of 20 ounces. - No food from midnight until time of surgery and no smoking, or chewing tobacco (or any form of nicotine). No chewing gum, candy or mints. Take only the following medications with a SIP of water on the morning of surgery: ____Buspirone, Trintellix, Alprazolam as needed, and Albuterol as needed____ DO NOT STOP ANY OF YOUR OTHER PRESCRIPTION MEDICATIONS PRIOR TO SURGERY EXCEPT THE FOLLOWING Hold all vitamins and supplements for 3 days per anesthesiologist. Medications to discontinue per physician ___HOLD losartan the morning of surgery____ Please no make-up, nail indonesian, hairspray, perfume, deodorant, or body powder the day of surgery.? No jewelry (including any body piercings) or valuables the day of surgery, leave them at home.? Please take a shower or bath the night before, or the morning of, surgery with an antibacterial soap.? Wear comfortable, loose fitting clothing.? - Jewelry must be removed prior to entering the operating room.? Rings and piercings that are not removed may be cut off. - The hospital will not accept responsibility for valuables.? - Please leave all valuables, including medications, at home the day of surgery. If you are going home after surgery, a licensed motor bus driver must drive you home.? - NO public transportation without another adult if you receive anesthesia. - We recommend that an adult stay with you for 24 hours following discharge. - We also recommend that you do not drive, make important decision, drink alcoholic beverages, or take any drugs that were not prescribed by your health care provider for at least 24 hours after your discharge time. Follow any additional instructions given to you from your surgeon. Telephone instructions given to __Tina__and asked if any additional questions and then verbalized understanding. Patient advised to call surgeon office or pre surgery nurse liaison [phone] if any additional questions.
--- OUTSIDE RECORDS SUMMARY | 2024-09-11 02:30 | XMS_ITS | Encounter Summary ---
Author Organization [facility] Address [address] [place] [address] Care Team Providers Care Type Copy Examiner Name Role Phone Philippe Terry MD Primary Care Provider [phone] Encounter Details Date Type Department Care Team (Late Contact Info) Description 01/19/2020 Prep for Procedure [facility] [address] [place], [place] [phone] Shaun Barney MD [address] [address] [place], [place] [id number] Social History Tobacco Use Types Packs/Day Years Used Date Smoking Tobacco: Never Smokeless Tobacco: Never Alcohol Use Standard Drinks/Week Comments Not Currently 0 (1 standard drink = 0.6 oz pur e alcohol) Comments No Sex and Gender Information Value Date Recorded Sex Assigned at Female 06/29/2024 11:57 AM CONTENT DIRECTOR Legal Sex Female 8:31 PM CDT [...] (Late Contact Info) Description 07/05/2025 11:00 AM CONTENT DIRECTOR Office Visit [facility] [address] [address] [place] [address] Pb Galindo MD Three [facility] [address] [place], [place] [phone] documented as of this encounter Results * PRE-SURGICAL/PRE-PROCEDURE CORONAVIRUS (COVID 19) (01/23/2020 2:43 PM CDT) CORONAVIRUS SARS COV 2 PCR (RESP) NOT DETECTED NOT DETECTED 01/24/2020 6:15 PM CDT [email or web address] Comment: A Not Detected (negative) test result [...] providers and patients using the following websites: https://www.StyleJam.com/home/Covid-19/HCP/QuestIVD/fact- sheet.html https://www.StyleJam.Har[employer]/home/Covid-19/Patients/ QuestIVD/fact-sheet.html This test has been authorized by the FDA under an Emergency Use Authorization (EUA) for use by authorized laboratories. Due to the current public health emergency, [facility] is receiving a high volume of samples [...] about COVID-19 can be found at the [facility] website: www.PushSpring/Covid19. Test performed at [email or web address] [place] [address] [place] [address] Director: ULISES COTO DO,MPH FIRST TEST UNKNOWN 01/23/2020 2:41 PM CDT [facility] EMPLOYED IN HEALTHCARE UNKNOWN 01/23/2020 2:41 PM CDT [facility] SYMPTOMATIC DEFINED BY CDC UNKNOWN 01/23/2020 2:41 PM CDT [facility] DATE OF SYMPTOM ONSET UNKNOWN 01/23/2020 2:41 PM CDT [facility] HOSPITALIZATION STATUS UNKNOWN 01/23/2020 2:41 PM CDT [facility] PATIENT IN ICU UNKNOWN 01/23/2020 2:41 PM CDT [facility] RESIDENT OF [facility] UNKNOWN 01/23/2020 2:41 PM CDT [facility] UNKNOWN 01/23/2020 2:41 PM CDT [facility] PATIENT'S RACE UNKNOWN 01/23/2020 2:41 PM CDT [facility] ETHNICITY UNKNOWN 01/23/2020 2:41 PM CDT [facility] SOURCE (QST) NASOPHARYNGEAL SWAB 01/23/2020 2:41 PM CDT [facility] NASOPHARYNGEAL SWAB / Unknown 01/23/2020 2:43 PM CDT us Shaun Barney MD MICROBIOLOGY - GENERAL ORDERABLE S Final Result [facility] [address] [place] [address], [place] [phone] [email or web address] [address] [place] [address], documented in this encounter Visit Diagnoses Diagnosis Preop testing- Primary Preoperative examination, unspecified documented in this encounter Additional Health Concerns Infection Onset Date Last Indicated Resolved Time COVID-19 Rule Out 01/23/2020 01/23/2020 01/24/2020 6:16 PM CDT COVID-19 Rule Out 08/25/2020 08/25/2020 08/26/2020 1:16 PM CDT documented as of this encounter Care Teams Type Copy Examiner Relationship Specialty Start Date End Date Philippe Terry MD PCP - General INTERNAL MEDICINE 05/05/18 documented as of this encounter
--- OUTSIDE RECORDS SUMMARY | 2024-09-11 02:31 | XMS_ITS | CONTINUITY OF CARE DOCUMENT ---
Author Name martycleve ashli Address Unknown Organization [facility] Address [address] [place] [address] Phone [phone] Care Team Providers Care Health Care Coordinator Name Role Phone Nabor MINOR, Neo Unavailable Philippe Terry MD Unavailable Philippe Terry MD Unavailable [phone] INSURANCE PROVIDERS Payer name Policy type / Coverage type Sunspot red democrat ID [facility] [employer] insurance [employer] [id number]
--- OUTSIDE RECORDS SUMMARY | 2024-09-11 02:31 | XMS_ITS | Referral Summary ---
Author Organization [facility] Address [address] [place] [address] Care Team Providers Care Commercial Loan Collection Officer Name Role Phone Philipep Terry MD Primary Care Provider [phone] Allergies Active Allergy Reactions Criticality Noted Date [...] 1 tablet (25 mg total) by mouth forester aide before breakfast 4 Active losartan (COZAAR) 50 [...] on file Legal Sex Female 12:53 AM ART CONSERVATOR Gender Identity Not on file Sexual Orientation Not on file Last Filed Vital Signs Vital Sign Reading Time Taken Comments Blood Pressure 145/81 04/10/2024 9:47 AM ART CONSERVATOR Pulse 66 04/10/2024 9:47 AM ART CONSERVATOR Temperature 37.4 C (99.3 F) 04/10/2024 9:47 AM ART CONSERVATOR Respiratory Rate 16 04/10/2024 9:47 AM ART CONSERVATOR Oxygen Saturation 96% 04/10/2024 9:47 AM ART CONSERVATOR Inhaled Oxygen Concentration - - Weight 98.9 kg (218 lb) 04/10/2024 9:47 AM ART CONSERVATOR Height 157.5 cm (5' 2 ) 04/10/2024 9:47 AM ART CONSERVATOR Body Mass Index 39.87 04/10/2024 9:47 AM ART CONSERVATOR Plan of Treatment Not on file Insurance MEDICARE [employer] OPEN ACCESS MEDICARE [facility] [employer] OPEN ACCESS MEDICARE Care Teams Commercial Loan Collection Officer Relationship Specialty Start Date End Date Philippe Terry MD PCP - General 08/17/16
--- OUTSIDE RECORDS SUMMARY | 2024-09-11 02:31 | XMS_ITS | Encounter Summary ---
Author Organization [facility] Address [address] [place] [address] Care Team Providers Care Blacktop Paver Operator Name Role Phone Philippe Terry MD Primary Care Provider [phone] Encounter Details Date Type Department Care Team (Late st Contact Info) Description 03/30/2022 Abstract [facility] [address] Sam Lin [place] Social History Tobacco Use [...] Sex Assigned at Female 06/29/2024 11:57 AM DRY PRIMER POWDER BLENDER Legal Sex Female 8:31 PM CDT Gender Identity Not on file Sexual Orientation Not on file COVID-19 Exposure Response Date Recorded In the last 10 days, have yo u been in contact with someone who was confirmed or suspected to have Coronavirus/COVID-19? No / Unsure 03/31/2022 12:39 PM DRY PRIMER POWDER BLENDER documented as of this encounter Plan of Treatment Upcoming Encounters Date Type Department Care Team (Late st Contact Info) Description 07/05/2025 11:00 AM DRY PRIMER POWDER BLENDER Office Visit [facility], [address] [address] Pb [facility]indo [facility] [address] [place] [id number] documented as of this encounter Procedures Procedure [...] LABORATORY Final Result * CREATININE (05/25/2022) Pathologist [facility] CREATININE S/P/B 0.81 0.5 - 1.0 EGFR NON-AFR. AMER. 84 <=90 05/25/2022 Default History Genericprovider LABORATORY Final Result * BUN (OUTSIDE LAB) (05/25/2022) Pathologist [facility] BUN 13 05/25/2022 Default History Genericprovider LAB-OUTSIDE/ABST RACTED Edited Result - Final * THYROID STIM HORMONE, TSH (03/27/2022) Pathologist [facility] TSH 0.692 03/27/2022 Default History Genericprovider LABORATORY Edited Result - Final * LIPID PANEL (03/27/2022) CHOLESTEROL 175 HDL 40 TRIGLYCERIDES 124 LDL (CALCULATED) 113 03/27/2022 us Default History Genericprovider LABORATORY Final Result documented in this encounter Visit Diagnoses Not on filedocumented in this encounter Care Teams Blacktop Paver Operator Relationship Specialty Start Date End Date Philippe Terry MD PCP - General INTERNAL MEDICINE 05/05/18 documented as of this encounter
--- OUTSIDE RECORDS SUMMARY | 2024-09-11 02:31 | XMS_ITS | Clinical Summary ---
Author Organization [facility] Address [address] [place] [address] Care Team Providers Care Hematology Technician Name Role Phone Philippe Terry MD Primary Care Provider [phone] Allergies Active Allergy Reactions Criticality Noted Date [...] 1 tablet (25 mg total) by mouth building drafter before breakfast 4 Active losartan (COZAAR) 50 [...] on file Legal Sex Female 12:53 AM HELP DESK MANAGER Gender Identity Not on file Sexual Orientation Not on file Obstetrics History Last Filed Vital Signs Vital Sign Reading Time Taken Comments Blood Pressure 145/81 04/10/2024 9:47 AM HELP DESK MANAGER Pulse 66 04/10/2024 9:47 AM HELP DESK MANAGER Temperature 37.4 C (99.3 F) 04/10/2024 9:47 AM HELP DESK MANAGER Respiratory Rate 16 04/10/2024 9:47 AM HELP DESK MANAGER Oxygen Saturation 96% 04/10/2024 9:47 AM HELP DESK MANAGER Inhaled Oxygen Concentration - - Weight 98.9 kg (218 lb) 04/10/2024 9:47 AM HELP DESK MANAGER Height 157.5 cm (5' 2 ) 04/10/2024 9:47 AM HELP DESK MANAGER Body Mass Index 39.87 04/10/2024 9:47 AM HELP DESK MANAGER Plan of Treatment Health Maintenance Due Date [...] 2013 Influenza Vaccine (#1) 2024 Insurance MEDICARE [facility] Address: [address] [address] [employer] OPEN ACCESS MEDICARE [facility] Address: [address] [address] [place] [address] [facility] [employer] OPEN ACCESS MEDICARE Care Teams Hematology Technician Relationship Specialty Start Date End Date Philippe Terry MD PCP - General 08/17/16
--- OUTSIDE RECORDS SUMMARY | 2024-09-11 02:31 | XMS_ITS | Clinical Summary ---
Author Organization [facility] Address [address] [place] [address] Care Team Providers Care Chemical Weigher Name Role Phone Philippe Terry MD Primary Care Provider [phone] Allergies Active Allergy Reactions Criticality Noted Date [...] (12/16/2022): Added automatically from request for surgery [id number] RUQ abdominal pain 12/16/2022 Overview (12/16/2022): Added automatically from request for surgery [id number] Food poisoning 12/16/2022 Overview (12/16/2022): Added automatically from request for surgery [id number] Chest pain 01/26/2022 Diabetes mellitus ([facility]) 12/31/2020 Epigastric pain 01/17/2020 Overview (01/17/2020): Added automatically from request for surgery [id number] Screening for colon cancer 01/17/2020 Overview (01/17/2020): Added automatically from request for surgery [id number] Constipation, unspecified constipation type 06/2019 Overview (01/17/2020): Added automatically from request for surgery [id number] Diarrhea, unspecified type 01/17/2020 Overview (01/17/2020): Added automatically from request for surgery [id number] Obesity 06/06/2018 Vitamin D deficiency 06/06/2018 Depressive disorder 06/06/2018 Hypertension 06/06/2018 Joint pain 06/06/2018 Osteopenia 06/06/2018 Sleep disorder 06/06/2018 Fatigue 06/06/2018 Palpitations 06/06/2018 Hyperglycemia 06/06/2018 Muscle pain 05/04/2013 Overview (03/25/2022): Muscle pain Encounters Date Type Department Care Team Description 07/17/2024 10:15 AM GALLEY COOK Telephone [facility] [place] [address] [place] [id number] Pb Galindo MD Holter Monitor 06/29/2024 12:15 PM GALLEY COOK Office Visit [facility] [place] [address] [place] [address] Pb Galindo MD Follow Up (Annual ) 06/29/2024 Orders Only [facility] [place] [address] [place] [address] Pb Galindo MD 06/29/2024 Travel from Last 3 Months Family History Medical [...] Sex Assigned at Female 06/29/2024 11:57 AM GALLEY COOK Legal Sex Female 8:31 PM CDT Gender Identity Not on file Sexual Orientation Not on file Last Filed Vital Signs Vital Sign Reading Time Taken Comments Blood Pressure 132/72 06/29/2024 12:02 PM GALLEY COOK Pulse 72 06/29/2024 12:02 PM GALLEY COOK Temperature 37.4 C (99.3 F) 03/26/2023 11:26 AM GALLEY COOK Respiratory Rate 16 03/26/2023 11:26 AM GALLEY COOK Oxygen Saturation 98% 06/29/2024 12:02 PM GALLEY COOK Inhaled Oxygen Concentration - - Weight 101.2 kg (223 lb) 06/29/2024 12:02 PM GALLEY COOK Height 157.5 cm (5' 2 ) 06/29/2024 12:02 PM GALLEY COOK Body Mass Index 40.79 06/29/2024 12:02 PM GALLEY COOK Plan of Treatment Upcoming Encounters Date Type Department Care Team (Late st Contact Info) Description 07/05/2025 11:00 AM GALLEY COOK Office Visit [facility] [place] [place] [address] Pb Galindo MD [facility] [address] [place], [place] [id number] Health Maintenance Due Date Last Done Comments [...] 5 Years 1993 Cervical Cancer Screening wi th HPV 1993 Mammogram Screening 2003 Zoster Vaccines (1 of 2) 2013 RSV Immunization or 60+ Years (1 - Risk 60-74 years 1-dose series) 2023 COVID-19 Vaccine (1 - 2023-2 5 season) 2024 PHQ-2 (Physician Cachil Dehe) 05/17/2024 Lipid Panel 06/28/2024 06/28/2023, 03/27/2022 Colorectal [...] Recently Relevant to Health Maintenance Insurance MEDICARE [employer] OPEN ACCESS [facility] Care Teams Chemical Weigher Relationship Specialty Start Date End Date Phliippe Terry MD PCP - General INTERNAL MEDICINE 05/05/18
--- OUTSIDE RECORDS SUMMARY | 2024-09-11 02:31 | XMS_ITS | Data Portability ---
Author Organization [place] - [facility] [employer], Main Office Address [address] [place] [address] Care Team Providers Care Marker Maker Name Role Phone JENNIFER TERRY Primary Care Provider Assessment No assessment recorded. Plan of Treatment Reminders Order Date Submit Date Provider Last Modified By Organization Details Last Modified Time Details Appointments Any 15 2024 01:30P M Jennifer Terry MD Not available Not available Not available Lab lipase, serum or plasma [address] (Lab), [address] [place], [address], 03/21/2024 08:46:32 amylase, serum or plasma [address] (Lab), [address] [place], [address], 03/21/2024 08:46:32 urinalysi s complete, reflex culture 2023 024 [facility] (Lab), [address] [place], [address], 02/22/2024 09:03:48 lipid panel, serum [address] (Lab), [address] [place], [address], 01/13/2024 08:14:55 TSH, serum or plasma 2023 024 [facility] (Lab), [address] [place], [address], 01/01/2024 11:03:14 CBC w/ auto diff 2023 [facility] (Lab), [address] [place], [address], 01/01/2024 10:27:22 CMP, serum or plasma 2023 [facility] (Lab), [address] [place], [address], 01/01/2024 11:03:14 vitamin D, 25-hydrox y, total, serum [address] (Lab), [address] [place], [address], 01/13/2024 08:14:55 vitamin B12, serum [address] (Lab), [address] [place], [address], 01/13/2024 08:14:55 Referral None recorded. Procedures None recorded. Surgeries None recorded. Imaging CT, abdomen + pelvis, w/o contrast - Please call patient to schedule. 2023 [facility], [address], [address], [place], [address], 02/29/2024 18:24:33 Medication Orders None recorded. Patient TargetsNo targets recorded. Patient InstructionsNo instructions recorded. Reason for Referral None Reported. Results Created Date Observation Date Name Description Value Unit Range Abnormal Flag Note LastModifiedBy Organization Detail LastModifiedTime 02/29/2002/28/2024 CT, abdom en + pelvi s, w/o contr ast No observ ation record ed. [address] Imaging [address], [place], [address], 03/02/2024 14:28:24 Result Notes None recorded. Problems Name Problem SNOMED Code Status Onset Date Resolution Date Notes Provider Name and Address Organization Details Recorded Time Low back pain 594510502 Active 2022 Mary Jane Dueñas CMA null, [facility] [employer] [facility] 3 12:37:44 Liver enzymes outside reference range 632646977 Completed Not Available [facility] 3 02:59:05 Steatotic liver disease 654340674 Active Not Available [facility] 3 02:59:05 Abdominal pain 31024241 Completed Leslie Baker LPN null, [facility] [employer] 3 13:47:25 Anemia 820851004 Active Not Available [facility] 3 02:59:05 Eruption 742942558 Completed Not Available [facility] 3 02:59:05 Chest pain 62544719 Active 2022 Not Available [facility] 3 02:59:05 Chest pain 26783352 Completed 202106/01/2022 Not Available [facility] 3 02:59:05 Acute otitis externa 67707535 Active 2021 Not Available [facility] 3 02:59:05 Osteopeni a 316153255 Active Not Available [facility] 3 02:59:05 Vitamin D deficienc y 11397915 Active Not Available [facility] 3 02:59:06 Depressiv e disorder 52100459 Active Not Available [facility] 3 02:59:06 Sleep disorder 37860198 Active Not Available [facility] 3 02:59:06 Obesity 634286384 Active Not Available [facility] 3 02:59:06 Upper respirato ry infection 00776210 Completed Jennifer Terry MD [address] [place] [address], [address] , [facility] [employer] [facility] [employer] [facility] 4 10:00:42 Pain of joint 41190727 Active Not Available [facility] 3 02:59:06 Essential hypertens ion 88090396 Active Not Available [facility] 3 02:59:06 Diarrhea 45607183 Active 2021 Not Available [facility] 3 02:59:06 Diabetes mellitus 50156215 Active 2020 Not Available [facility] 3 02:59:06 Sleep apnea 14633302 Active 2021 Not Available [facility] 3 02:59:06 Palpitati ons 96494518 Active Not Available [facility] 3 02:59:06 Hyperglyc emia 83563000 Active Not Available [facility] 3 02:59:07 Fatigue 59109852 Active 2017 Not Available [facility] 3 02:59:07 Viral gastroent eritis 186594162 Active 2022 Jennifer Terry MD [address], [address], [place], [address] , [place] [facility] [place] [facility] 3 15:51:02 Acute urinary tract infection 774289893 Completed 202204/18/2024 Elena hernández RMMerary null, [place] [facility] [place] [facility] 4 16:48:21 Abdominal pain 63220721 Active 2022 Leslie Baker LPN null, [place] [facility] 3 13:47:25 Pain of right hip joint 64254356196 9102 Active 2022 Jennifer Terry MD [address], [address], [place], [address] , [place] [facility] 3 16:05:24 Asthma 483975360 Active 2023 Elena hernández RMMerary null, [place] [facility] 4 14:58:10 Allergic rhinitis 37123785 Active 2023 Elena hernández RMA null, [place] [facility] [place] [facility] 4 16:48:23 Acute sinusitis 30847181 Active 2023 Leslie Baker LPN null, [place] [facility] [place] [facility] 4 11:25:19 Upper respirato ry infection 05695189 Active 2023 Jennifer Terry MD [address] [place] [address], [facility] [address], [place], [address] , [facility] [place] [facility] 4 10:00:42 Sinusitis 28808105 Active 2023 Tamera Stafford MA null, [facility] 4 15:38:23 Laryngiti s 12403228 Active 2023 Tamera Stafford MA null, [place] [facility] [place] [facility] 4 14:19:27 Urinary tract infectiou s disease 05317475 Active 2024 Leslie Baker LPN null, [facility] 5 16:06:31 Dysuria 77391988 Active 2024 Tamera Stafford MA null, [facility] 5 11:27:51 Urinary symptoms 272407057 Active 2024 Leslie Baker LPN null, [facility] 5 11:38:50 Problem Notes None recorded. Procedures Surgical History Date Name Laterality Status Provider Name and Address Organization Details Recorded Time 08/05/19 Medicare Wellness CPT Code, subsequent completed Nisha Ribera RN [facility] 08/05/2023 10:06:44 01/26/20 Date of Last Colonoscopy completed Not Available [facility] 07/15/2022 02:51:29 DEVOPS ARCHITECT Procedure completed Not Available [facility] 07/15/2022 02:51:32 tonsillectomy completed Not Available [facility] 07/15/2022 02:51:32 DEVOPS ARCHITECT Surgery completed Not Available [facility] 07/15/2022 02:51:32 extraction of wisdom tooth completed Not Available [facility] 07/15/2022 02:51:32 Imaging Results Imaging Date Name Status LastModified by Organiz ation Details LastModified Time 02/28/2024 CT, abdomen + pelvis, w/o contrast [facility] [place] [address] Imaging [address] [facility] [address], [place], [address], 03/02/2024 14:28:24 Procedure Notes None recorded. Medical Equipment None Reported. Allergies Allergen ID Allergen Name Allergen Category Reaction Reaction Severity Criticality Documentation Date Start Date Code Code System Note Provider Name and Address Organization Details Recorded Time 5155 Substance with sulfonami de structure and antibacte rial mechanism of action (substanc e) medicatio n Not available Not available Not available 07/15/2022 03693 8003 SNOMED unsur e of react ion Not Available [facility] 3 03:07:06 5156 Product containin g penicilli n (product) medicatio n hives moderate Not available 07/15/2022 22362 8001 SNOMED Not Available [facility] 3 03:07:06 5157 Iodinated contrast media (substanc e) medicatio n swelling moderate Not available 07/15/2022 20570 2004 SNOMED Not Available [facility] 3 03:07:06 Medications Name Sig Start Date [...] Updated DateTime 4 157.48 cm 40.1 kg/m2 83667.7 3 g 97.7 [degF] 74 /min 98 % 98 % 134 mm[Hg] 70 mm[Hg] Elena bragg [employer] [facility] 4 12:23:28 Date Recorded Body height Body mass index (BMI) Body weight Oxygen saturation Oxygen saturation in Arterial blood by Pulse oximetry Heart rate Body temperature Systolic blood pressure Diastolic blood pressure Provider Name and Address Organization Details Last Updated DateTime 4 157.48 cm 40.2 kg/m2 71528.3 2 g 99 % 99 % 74 /min 98.2 [degF] 128 mm[Hg] 72 mm[Hg] Yocasta Manning Respi [facility] [employer] 4 16:13:58 Date Recorded Body height Body mass index (BMI) Body weight Body temperature Heart rate Oxygen saturation Oxygen saturation in Arterial blood by Pulse oximetry Systolic blood pressure Diastolic blood pressure Provider Name and Address Organization Details Last Updated DateTime 4 157.48 cm 39.9 kg/m2 58067.1 4 g 97.7 [degF] 79 /min 97 % 97 % 140 mm[Hg] 78 mm[Hg] Elena bragg Merary [employer] [facility] 4 14:12:53 Date Recorded Body height Body mass index (BMI) Body weight Heart rate Oxygen saturation Oxygen saturation in Arterial blood by Pulse oximetry Body temperature Systolic blood pressure Diastolic blood pressure Provider Name and Address Organization Details Last Updated DateTime 4 157.48 cm 39 kg/m2 74703.1 7 g 79 /min 97 % 97 % 97.9 [degF] 134 mm[Hg] 70 mm[Hg] Elena bragg Merary Respi [facility] [employer] [facility] 4 16:37:35 Date Recorded Body height Body mass index (BMI) Body weight Body temperature Heart rate Oxygen saturation Oxygen saturation in Arterial blood by Pulse oximetry Systolic blood pressure Diastolic blood pressure Provider Name and Address Organization Details Last Updated DateTime 5 157.48 cm 38 kg/m2 79305.2 1 g 97.8 [degF] 87 /min 98 % 98 % 130 mm[Hg] 82 mm[Hg] Shannan marte Respi [facility] [employer] [facility] 14:34:59 Social History Question Answer Notes LastModified by Organizat ion Details LastModified Time Tobacco Smoking Status Never Smoker Not Available [employer] 07/15/2022 02:51:18 Do You Have An Advance Directive? No MIGRATION.[id number] [id number] Information not available 07/15/2022 What Is Your Level Of Alcohol Consumption? None MIGRATION.92160 48556 Information not available 07/15/2022 What Is Your Level Of Caffeine Consumption? Moderate MIGRATION.91103 31955 Information not available 07/15/2022 How Much Tobacco Do You Chew? None MIGRATION.98544 33179 Information not available 07/15/2022 What Type Of Diet Are You Following? GLUTENFREE Egg And Dairy Free MIGRATION.72377 79834 Information not available 07/15/2022 Which Illicit Or Recreational Drugs Have You Used? None MIGRATION.09944 22025 Information not available 07/15/2022 Do You Or Have You Ever Used E-cigarettes Or Vape? 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 No [email or web address] Information not available 08/05/2023 What Is The Fluoride Status Of Your Home? Fluoridated MIGRATION.49310 52485 Information not available 07/15/2022 Do You Use Insect Repellent Routinely? No [email or web address] Information not available 08/05/2023 Where Do You Live? [place]House MIGRATION.55630 26410 Information not available 07/15/2022 Are You Able To Care For Yourself? Yes [email or web address] Information not available 08/05/2023 Are You Blind Or Do Yo Have Difficulty Seeing? No [email or web address] Information not available 08/05/2023 Are You Deaf Or Do You Have Serious Difficulty Hearing? No Information not available 08/05/2023 Live Alone Of With Others? With Others [email or web address] Information not available 08/05/2023 Do You Have A Medical Power Of Distribution Superintendent? No MIGRATION.83172 07063 Information not available 07/15/2022 What Was The Date Of Your Most Recent Tobacco Screening? 08/05/2023 [email or web address] Information not available 08/05/2023 Do You Have Any Pets? No [email or web address] Information not available 08/05/2023 What Is Your Relationship Status? [email or web address] Information not available 08/05/2023 Do You Use Your Seat Belt Or Car Seat Routinely? Yes MIGRATION.79284 95589 Information not available 07/15/2022 Do You Have Smoke And Carbon Monoxide Detectors In Your Home? Yes MIGRATION.43313 80473 Information not available 07/15/2022 Are You Passively Exposed To Smoke? No [email or web address] Information not available 08/05/2023 Do You Or Have You Ever Used Smokeless Tobacco? Never Used Smokeless Tobacco MIGRATION.35489 16227 Information not available 07/15/2022 Are There Any Smokers In Your House? No [email or web address] Information not available 08/05/2023 How Much Tobacco Do You Smoke? No MIGRATION.11960 58843 Information not available 07/15/2022 Do You Use Sunscreen Routinely? No MIGRATION.84536 97873 Information not available 07/15/2022 Have You Recently Traveled Abroad? No Information not available 08/05/2023 Do You Have Any Dietary Restrictions? No MIGRATION.60120 24082 Information not available 07/15/2022 Sex: Unknown Functional Status Question Answer Note LastModified by Organizat ion Details LastModified Time What is your exercise level? None MIGRATION.[id number] Information not available 07/15/2022 Mental Status None recorded. Family History Relationship Description Onset Age of this Age Resolved Age Notes LastModified by Organization Details LastModified Time Mother Essential hypertension MIGRATION.025 [id number] Not available 07/15/2022 02:51:39 Mother Malignant neoplastic disease MIGRATION.150 1059197 Not available 07/15/2022 02:51:39 Brother Essential hypertension MIGRATION.877 2069669 Not available 07/15/2022 02:51:39 Father Heart disease MIGRATION.299 2543801 Not available 07/15/2022 02:51:39 Medical History No medical history recorded. Gynecological History Statement/Question Response Date of Last Mammogram Date of Last Colonoscopy 01/26/2020 Most Recent Bone Density Obstetrics History GPAL:G 0 P 0 0 0 0 Past Encounters Encounter ID Performer Location Encounter Start Date Encounter Closed Date Diagnosis/Indication Diagnosis SNOMED-CT Code Diagnosis ICD10 Code Diagnosis Note [id number] [facility] [address] [place] [address] 08/02/2020 00:00:00 08/02/2020 17:58:30 [id number] [facility] [address] [facility] [place] [address] 12/18/2020 00:00:00 12/18/2020 15:43:20 [id number] [facility] [address] [place] [address]. [place] [address] 04/28/2021 00:00:00 04/28/2021 16:16:53 [id number] [facility] [address] [facility] [place] [address] 08/12/2021 00:00:00 08/12/2021 16:36:26 [id number] [facility] [address] [place] [address]. [place] [address] 09/22/2021 00:00:00 09/22/2021 12:17:28 [id number] [facility] [address] [place] [address]. [place] [address] 01/26/2022 00:00:00 01/26/2022 15:11:53 [id number] [facility] [address] [place] [address] 05/01/2022 00:00:00 05/01/2022 16:20:10 [id number] [facility] [address] [place] [address]. [place] [address] 06/02/2022 00:00:00 06/02/2022 16:30:01 [id number] Jennifer Terry MD [facility] [address] [facility] [place] [address] 11/18/2022 15:29:52 11/18/2022 15:51:27 Viral gastroenteritis 737999718 A08.4 diet discussed, call if not better in 4 days [id number] Jennifer Terry MD [facility] [address] [place] [address] 02/01/2023 15:41:18 02/01/2023 16:08:25 Pain of right hip joint 6492632327 90435 M25.990 [id number] Jennifer Terry MD [facility] [address] [facility] [place] [address] 08/05/2023 09:38:20 08/05/2023 10:06:28 Upper respiratory infection 44799251 J06.9 finish doxy, [facility] Adult [facility] th examination 896190304 Z00.00 Screening for disorder 942353834 Z13.9 [id number] Jennifer Terry MD [facility] [address] [facility] [place] [address] 12/30/2023 12:13:56 12/30/2023 12:46:24 Fatigue 10060987 R53.83 Hyperlipid emia screening 657033929 Z13.705 [id number] Jennifer Terry MD [facility] [address] [facility] [place] [address] 01/13/2024 15:51:28 01/13/2024 16:58:25 Fatigue 37985026 R53.83 need to call her specialist and see if needs adjustment Vitamin D deficiency 347 40053 E55.9 on meds Steatotic liver disease 654168577 K76.0 low fat diet, lose weight [id number] Jennifer Terry MD [facility] [address] [facility] [place] [address] 02/21/2024 14:00:19 02/21/2024 14:26:18 Abdominal pain 11125241 R10.9 [id number] Jennifer Terry MD [facility] [address] [facility] [place] [address] 04/18/2024 16:30:39 04/18/2024 17:22:25 Depressive disorder 94682949 F32.9 under control Anemia 164059988 D64.9 stable labs Diabetes mellitus 169779 09 E11.9 under control Essential hypertension 83298691 I10 under control Fatigue 08190960 R53.83 Obesity 697798706 E66.9 to lose more Osteopenia 243876435 M85 .80 otc Sleep apnea 12439887 G47 .30 cpap Vitamin D deficiency 347 64134 E55.9 on meds Allergic rhinitis 743074 04 J30.9 otc [id number] Jennifer Terry MD [facility] [address] [place] [address] 08/17/2024 14:20:41 08/17/2024 14:48:49 Depressive disorder 91362294 F32.9 ON NEW MEDS, not feeling well Anemia 319769679 D64.9 stable labs Diabetes mellitus 695472 09 E11.9 under control, no meds needed Essential hypertension 25510036 I10 under control Obesity 532471869 E66.9 to lose more Osteopenia 462964336 M85 .80 otc Sleep apnea 81757587 G47 .30 cpap Vitamin D deficiency 347 97312 E55.9 on meds Allergic rhinitis 604437 04 J30.9 otc Health Concerns Section Related Observation LastModified by Organization Detai ls LastModified Time None Recorded Concern Status LastModified by Organization Details LastModified Time None Recorded Advance Directives Directive N: Payers Encounter Date Sequence Insurance Name Policy Number Policy Collins Covered Member ID Collins Member ID Guarantor Name 12/30/2023 1 [place] Carmen L Denae [id number] Carmen L Mora 12/30/2023 2 [employer] (PPO) [id number] Carmen L Denae [id number] Carmen L Denae 01/13/2024 1 [place] Carmen L Mora [id number] Carmen L Denae 01/13/2024 2 [employer] (PPO) [id number] Carmen L Mora [id number] Carmen L Mora 02/21/2024 1 [place] Carmen L Mora [id number] Carmen L Mora 02/21/2024 2 [employer] (PPO) [id number] Carmen L Mora [id number] Carmen L Mora 04/18/2024 1 [place] Carmen L Denae [id number] Carmen L Mora 04/18/2024 2 [employer] (PPO) [id number] Carmen L Mora [id number] Carmen L Mora 08/17/2024 1 [place] Carmen L Mora [id number] Carmen L Denae 08/17/2024 2 [employer] (PPO) [id number] Carmen L Mora [id number] Carmen L Mora Notes Date Note Type Note Provider Name [...] or depression Jennifer Terry MD [address] [employer], [address], [place], [address], [place] [facility] [employer] 12/30/2023 12:45:14 01/13/2024 text/html Pt is here [...] Terry MD [address], [address], [place], [address], [facility] [employer] 01/13/2024 16:56:44 02/21/2024 text/html Pt is here [...] it years ago. Jennifer Terry MD [address] [facility], [address], [place], [address], [facility] [facility] [employer] 02/21/2024 14:24:24 04/18/2024 text/html Doing fine, compliant [...] more chest pain Jennifer Terry MD [address] [facility], [address], [place], [address], [employer] 04/18/2024 17:26:25 08/17/2024 text/html Doing fine, compliant [...] Terry MD [address], [place], [address], [employer] 08/17/2024 14:47:41 OBGyn Episode No OBEpisode recorded.
--- OUTSIDE RECORDS SUMMARY | 2024-09-11 02:32 | XMS_ITS | Patient Health Record ---
Author Organization [facility] Address [address] [place] [address] Care Team Providers Care Medical Accountant Name Role Phone Philippe Terry MD Primary Care Provider Unavail able Cami Rice Unavailable [phone] Molly Chong Unavailable [phone] Migration, Provider Unavailable Unavailable Allergies Allergen (clinical [...] Risk Notes Problem Mild recurrent major depression (94277672) Major depressive disorder, recurrent, mild (F33.0) 09/10/19 Active confirmed Problem Generalized anxiety disorder (42140626) Generalized anxiety disorder (F41.1) 09/10/19 Active confirmed Problem Insomnia disorder related to another mental disorder (70922009) Insomnia due to other mental disorder (F51.05) 09/10/19 Active confirmed Problem Screening for cardiovascular system disease (737728051) Encounter for screening for cardiovascular disorders (Z13.6) Active confirmed Problem Long-term current use of drug therapy (481727674) 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) 09/10/19 Active confirmed Problem Depression Screening (836968362) Encounter for screening for depression (Z13.31) Active confirmed Problem [id number] MDD (major depressive disorder), recurrent episode, moderate (F33.1) Active confirmed Problem [id number] MDD (major depressive disorder), severe (F32.2) Active confirmed Vital Signs Heart Rate 68 /min 09/05/2024 Respiratory Rate 16 /min 09/05/2024 Height-cm 157.48 cm 09/05/2024 Blood pressure diastolic 69 mm Hg 09/05/2024 Weight-kg 91.35 kg 09/05/2024 Height 62.00 in 09/05/2024 Blood pressure systolic 106 mm Hg 09/05/2024 Weight 201.4 lbs 09/05/2024 BMI 36.83 kg/m2 09/05/2024 Encounters Encounter Location Date Provider Diagnosis [facility] [address] [facility] [address] [address] 04/11/2024 Molly Mcallister [facility] [address] [address] 02/03/2024 Cami Rice Generalized anxiety disorder F41.1 ; MDD (major depressive disorder), severe F32.2 ; Insomnia due to other mental disorder F51.05 and 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 therapy Z79.899 [facility] [address] [facility] [address] [address] 02/24/2024 Cami Rice Generalized anxiety disorder F41.1 ; Major depressive disorder, recurrent, mild F33.0 ; Insomnia due to other mental disorder F51.05 and [facility] [place] [facility] [place] drug [facility] Z79.899 [facility] [employer] [facility] [address] [facility] [address] [address] 06/08/2024 Cami Rice Generalized anxiety disorder F41.1 ; Major depressive disorder, recurrent, mild F33.0 ; Insomnia due to other mental disorder F51.05 and 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 therapy Z79.899 [facility] [employer] [facility] [address] [facility] [address] [address] 06/29/2024 Cami Thercristina Generalized anxiety disorder F41.1 ; Major depressive disorder, recurrent, mild F33.0 ; Insomnia due to other mental disorder F51.05 and [facility] [place] [facility]99 [facility] [address] [place] [address] 07/14/2024 Cami Thery Generalized anxiety disorder F41.1 ; MDD (major depressive disorder), recurrent episode, moderate F33.1 ; Insomnia due to other mental disorder F51.05 and [place] [facility] [place] drug therapy Z79.[address] [place] [address] 07/28/2024 Cami Thery Generalized anxiety disorder F41.1 ; MDD (major depressive disorder), recurrent episode, moderate F33.1 ; Insomnia due to other mental disorder F51.05 ; 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 therapy Z79.899 and Encounter for screening for depression Z13.[address] [place] [address] 08/08/2024 Cami Thery Encounter for screening for depression Z13.31 ; Generalized anxiety disorder F41.1 ; MDD (major depressive disorder), recurrent episode, moderate F33.1 ; Insomnia due to other mental disorder F51.05 ; [facility] [place] [facility] [place] drug therapy Z79.899 and Encounter for screening for cardiovascular disorders Z13.6 [facility] [address] [address] 08/17/2024 Cami Thery Encounter for screening for depression Z13.31 ; Generalized anxiety disorder F41.1 ; MDD (major depressive disorder), recurrent episode, moderate F33.1 ; Insomnia due to other mental disorder F51.05 ; [facility] [place] [facility] drug therapy Z79.899 and Encounter for screening for cardiovascular disorders Z13.6 [facility] [address] [address] 08/22/2024 Molly Mcallister Generalized anxiety disorder F41.1 ; MDD (major depressive disorder), recurrent episode, moderate F33.1 and Encounter for screening for depression Z13.[address] [place] [address] 09/05/2024 Cami Thery Encounter for screening for depression Z13.31 ; Generalized anxiety disorder F41.1 ; MDD (major depressive disorder), recurrent episode, moderate F33.1 ; Insomnia due to other mental disorder F51.05 ; 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 therapy Z79.899 ; Encounter for screening for cardiovascular disorders Z13.6 and Nausea and vomiting, unspecified vomiting type R11.2 [facility], [facility] [address] [place] [address] 09/05/2024 Molly Mcallister Generalized anxiety disorder F41.1 ; MDD (major depressive disorder), severe F32.2 and Encounter for screening for depression Z13.31 [facility] [address] [place] [address] 10/02/2023 Provider Migration [facility], [facility] [address] [place] [address] 10/03/2023 Provider Migration [facility], [facility] [address] [place] [address] 02/14/2024 Cami Rice [facility], [facility] [address] [place] [address] 02/14/2024 Cami Rice [facility], [facility] [address] [place] [address] 04/11/2024 Cami Rice [facility], [facility] [address] [place] [address] 04/25/2024 Cami Rice [facility], [facility] [address] [place] [address] 06/08/2024 Cami Rice [facility], [facility] [address] [place] [address] 02/09/2024 Cami Rice [facility], [facility] [address] [place] [address] 02/14/2024 Cami Rice Major depressive disorder, recurrent, mild F33.0 ; Generalized anxiety disorder F41.1 ; Insomnia due to other mental disorder F51.05 ; [facility] [place] [facility] [place] drug therapy Z79.899 and Elevated liver enzymes R74.8 [facility] [address] [place] [address] 02/16/2024 Cami Rice [facility], [facility] [address] [place] [address] 02/16/2024 Cami Thercristina [facility], [facility] [address] [place] [address] 02/18/2024 Cami Thercristina [facility], [facility] [address] [place] [address] 03/02/2024 Cami Thercristina [facility], [facility] [address] [place] [address] 06/09/2024 Cami Thercristina [facility], [facility] [address] [place] [address] 06/12/2024 Cami Thercristina [facility], [facility] [address] [place] [address] 06/20/2024 Cami Rice Generalized anxiety disorder F41.1 [facility], [facility] [address] [place] [address] 07/07/2024 Cami Rice [facility], [facility] [address] [place] [address] 07/10/2024 Cami Thercristina [facility], [facility] [address] [place] [address] 07/10/2024 Cami Rice Major depressive disorder, recurrent, mild F33.0 [facility], [facility] [address] [place] [address] 07/27/2024 Camibeatriz Rice [facility], [facility] [address] [place] [address] 07/28/2024 Cami Thercristina [facility], [facility] [address] [place] [address] 07/28/2024 Cami Thercristina [facility], [facility] [address] [place] [address] 07/28/2024 Cami Thercristina [facility], [facility] [address] [place] [address] 08/04/2024 Cami Thercristina MDD (major depressiv e disorder), recurrent episode, moderate F33.1 [facility], [facility] [address] [place] [address] 08/07/2024 Cami Thercristina [facility], [facility] [address] [place] [address] 08/07/2024 Cami Rice Generalized anxiety disorder F41.1 [place] [address] [place] [address] 08/08/2024 Cami Rice [place] [address] [place] [address] 08/08/2024 Cami Loucristina [place] [address] [place] [address] 08/30/2024 Cami Rice Generalized anxiety disorder F41.1 Assessments Encounter Date Diagnosis (ICD Code) Assessment Notes Treatment Notes Treatment Clinical Notes Section Notes 08/07/2024 Generalized anxiety disorder (ICD-10 - F41.1) 06/20/2024 Generalized anxiety disorder (ICD-10 - F41.1) 02/24/2024 Major depressive disorder, recurrent, mild (ICD-10 [...] http_s://www.claudia .org/About-Mental -Illness/Mental-H ealth-Conditions http_s://psychcen tral.com/depressi on/the-cognitive- thftojgb-wr-yruee ssion#treatments http__s://www.nim h.nih.gov/health/ topics/mental-hea lth-medications http__s://www.nam i.org/About-Menta [...] sleep hygiene http_s://www.claudia .org/About-Mental -Illness/Mental-H ealth-Conditions http_s://psychcen Shakerl.com/depressi on/the-cognitive- vrhihvca-ye-orknq ssion#treatments http__s://www.[facility].nih.gov/health/ topics/mental-hea lth-medications http__s://www.nam i.org/About-Menta l-Illness/Treatme [...] potential neurotoxicity and interactions with prescribed medications. 08/04/2024 MDD (major depressive disorder), recurrent episode, [...] no plan or intent schedule to see Wellness Trainer for chest pain- had test done and [...] http_s://www.claudia .org/About-Mental -Illness/Mental-H ealth-Conditions http_s://psychcen tral.com/depressi on/the-cognitive- krungecr-pb-mzndf ssion#treatments http__s://www.nim h.nih.gov/health/ topics/mental-hea lth-medications http__s://www.nam i.org/About-Menta [...] neurotoxicity and interactions with prescribed medications. 07/14/2024 Generalized anxiety disorder (ICD-10 - F41.1) [...] no plan or intent schedule to see Wellness Trainer for chest pain- had test done and heart monitor scheduled Educated and discuss on medication options educated on all rx refer to therapy - Molly Anxiety-Buspar 10 mg three times a day with a meal - Xanax 0.25 mg PRN - educated to take for anxiety Sleep- sleep hygiene http_s://www.claudia .org/About-Mental -Illness/Mental-H ealth-Conditions http_s://psychcen tral.com/depressi on/the-cognitive- cjxjjjml-dy-ekthz ssion#treatments http__s://www.[facility].nih.gov/health/ topics/mental-hea [facility]-medications http__s://www.nam i.org/About-Menta l-Illness/Treatme nts/Mental-Health -Medications educated on [...] no plan or intent schedule to see Wellness Trainer for chest pain- had test done and heart monitor scheduled Educated and discuss on medication options educated on all rx refer to therapy - Molly Anxiety-Buspar 10 mg three times a day with a meal - Xanax 0.25 mg PRN - educated to take for anxiety Sleep- sleep hygiene http_s://www.claudia .org/About-Mental -Illness/Mental-H ealth-Conditions http_s://psychcen tral.com/depressi on/the-cognitive- qmewopjt-tf-judng ssion#treatments http__s://www.[facility].nih.gov/health/ topics/mental-hea lth-medications http__s://www.nam i.org/About-Menta l-Illness/Treatme [...] depressive disorder, recurrent, mild (ICD-10 - F33.0) 06/29/2024 Generalized anxiety disorder (ICD-10 - F41.1) [...] 4 days- conitnue rx schedule to see Wellness Trainer today for chest pain- wakes up in night Educated and discuss on medication options educated on all rx refer to therapy - Molly Anxiety-Buspar 10 mg three times a day with a meal - Xanax 0.25 mg PRN (not taking presently) Sleep- sleep hygiene http_s://www.claudia .org/About-Mental -Illness/Mental-H ealth-Conditions http_s://psychiSpecimencom/depressi on/the-cognitive- ivsflvuo-od-frmye ssion#treatments http__s://www.nim .nih.gov/health/ topics/mental-hea lth-medications http__s://www.nam i.org/About-Menta [...] no plan or intent schedule to see Wellness Trainer for chest pain- had test done and heart monitor scheduled Educated and discuss on medication options educated on all rx refer to therapy - Molly Anxiety-Buspar 10 mg three times a day with a meal - Xanax 0.25 mg PRN - educated to take for anxiety Sleep- sleep hygiene http_s://www.claudia .org/About-Mental -Illness/Mental-H ealth-Conditions http_s://psychcen tral.com/depressi on/the-cognitive- qurekofv-zn-collv ssion#treatments http__s://www.nim .nih.gov/health/ topics/mental-hea lth-medications http__s://www.nam i.org/About-Menta [...] disorder), recurrent episode, moderate (ICD-10 - F33.1) 09/05/2024 Generalized anxiety disorder (ICD-10 - F41.1) 08/17/2024 Encounter for screening for depression (ICD-10 - Z13.31) 1. Depression- continue depression and anxiety d/c Zoloft 50 mg daily- diarrhea and weight loss discuss with patient Paxil and over age 60, benefits, risk, side effects, and monitor - see tabber and heart monitor scheduled discuss risk QTC/QT interval risk pateint reported felt the best on Paxil discuss cardiovascular risk Discuss and educated onTrintellix and Auvelity options Pateint agreed to Trintellix - will start Trintellix 5 mg daily for 2 week then increase Trintellix 10 mg daily - samples given hx PT for High tone pelvic dysfunction- no plan or intent schedule to see Wellness Trainer for chest pain- had test done and [...] http_s://www.claudia .org/About-Mental -Illness/Mental-H ealth-Conditions http_s://psychcen tral.com/depressi on/the-cognitive- lrhilffk-ks-fxalk ssion#treatments http__s://www.nim .nih.gov/health/ topics/mental-hea [facility]-medications http__s://www.nam i.org/About-Menta l-Illness/Treatme nts/Mental-Health -Medications educated on [...] depressive disorder, recurrent, mild (ICD-10 - F33.0) 06/08/2024 Generalized anxiety disorder (ICD-10 - F41.1) [...] sleep hygiene http_s://www.claudia .org/About-Mental -Illness/Mental-H ealth-Conditions http_s://psychcen [employer]pex Guard[employer]/depressi on/the-cognitive- syfomglh-sq-lttif ssion#treatments http__s://www.[facility].nih.gov/health/ topics/mental-hea lth-medications http__s://www.nam i.org/About-Menta l-Illness/Treatme [...] neurotoxicity and interactions with prescribed medications. 02/03/2024 Generalized anxiety disorder (ICD-10 - F41.1) [...] sleep hygiene http_s://www.claudia .org/About-Mental -Illness/Mental-H ealth-Conditions http_s://psychcen Shakerl.com/depressi on/the-cognitive- pejbnbix-ka-jkioz ssion#treatments http__s://www.nim .nih.gov/health/ topics/mental-hea lth-medications http__s://www.nam i.org/About-Menta [...] prescribed medications. 09/05/2024 Encounter for screening for depression (ICD-10 - Z13.31) 1. Depression- continue depression and anxiety discuss with patient Paxil and over age 60, benefits, risk, side effects, and monitor - see tabber and heart monitor scheduled discuss risk QTC/QT [...] no plan or intent schedule to see Wellness Trainer for chest pain- had test done and [...] Sleep- sleep hygiene http_s://www.claudia .org/About-Mental -Illness/Mental-H ealth-Conditions http_s://psychSeagate [employer]yn [employer].com.com/depressi on/the-cognitive- qawvgeut-fp-xynok ssion#treatments http__s://www.nim .nih.gov/health/ topics/mental-hea [facility]-medications http__s://www.nam i.org/About-Menta l-Illness/Treatme nts/Mental-Health -Medications educated on [...] prescribed medications. 09/05/2024 MDD (major depressive disorder), severe (ICD-10 - F32.2) 08/30/2024 Generalized anxiety disorder (ICD-10 - F41.1) 08/22/2024 Generalized anxiety disorder (ICD-10 - F41.1) 02/03/2024 MDD (major depressive disorder), severe (ICD-10 [...] sleep hygiene http_s://www.claudia .org/About-Mental -Illness/Mental-H ealth-Conditions http_s://psychcen Broadcast.com.com/depressi on/the-cognitive- ugcgqqte-qs-acqky ssion#treatments http__s://www.nim .nih.gov/health/ topics/mental-hea lth-medications http__s://www.nam i.org/About-Menta [...] risk, side effects, and monitor - see tabber and heart monitor scheduled discuss risk QTC/QT [...] no plan or intent schedule to see Wellness Trainer for chest pain- had test done and [...] http_s://www.claudia .org/About-Mental -Illness/Mental-H ealth-Conditions http_s://psychcen tral.com/depressi on/the-cognitive- vvltqbgc-md-sfays ssion#treatments http__s://www.nim .nih.gov/health/ topics/mental-hea lth-medications http__s://www.nam i.org/About-Menta [...] http_s://www.claudia .org/About-Mental -Illness/Mental-H ealth-Conditions http_s://psychcen tral.com/depressi on/the-cognitive- ydblvhdb-bp-imbaj ssion#treatments http__s://www.nim .nih.gov/health/ topics/mental-hea lth-medications http__s://www.nam i.org/About-Menta [...] Sleep- sleep hygiene http_s://www.claudia .org/About-Mental -Illness/Mental-H ealth-Conditions http_s://psychSKYE Associates.[employer]/depressi on/the-cognitive- puxgdwxb-yq-gybco ssion#treatments http__s://www.nim h.nih.gov/health/ topics/mental-hea lth-medications http__s://www.nam i.org/About-Menta [...] 02/14/2024 Generalized anxiety disorder (ICD-10 - F41.1) 09/05/2024 Encounter for screening for depression (ICD-10 - Z13.31) 08/17/2024 Generalized anxiety disorder (ICD-10 - F41.1) [...] risk, side effects, and monitor - see tabber and heart monitor scheduled discuss risk QTC/QT interval risk pateint reported felt the best on Paxil discuss cardiovascular risk Discuss and educated onTrintellix and Auvelity options Pateint agreed to Trintellix - will start Trintellix 5 mg daily for 2 week then increase Trintellix 10 mg daily - samples given hx PT for High tone pelvic dysfunction- no plan or intent schedule to see Wellness Trainer for chest pain- had test done and [...] Sleep- sleep hygiene http_s://www.claudia .org/About-Mental -Illness/Mental-H ealth-Conditions http_s://psychAionex/depressi on/the-cognitive- ebyuvzuh-jr-pskjf ssion#treatments http__s://www.nim h.nih.gov/health/ topics/mental-hea lth-medications http__s://www.nam i.org/About-Menta [...] no plan or intent schedule to see Wellness Trainer for chest pain- had test done and [...] http_s://www.claudia .org/About-Mental -Illness/Mental-H ealth-Conditions http_s://psychcen tral.com/depressi on/the-cognitive- ewwricbq-rd-zscpu ssion#treatments http__s://www.[facility].nih.gov/health/ topics/mental-hea lth-medications http__s://www.nam i.org/About-Menta l-Illness/Treatme [...] 4 days- conitnue rx schedule to see Wellness Trainer today for chest pain- wakes up in night Educated and discuss on medication options educated on all rx refer to therapy - Molly Anxiety-Buspar 10 mg three times a day with a meal - Xanax 0.25 mg PRN (not taking presently) Sleep- sleep hygiene http_s://www.claudia .org/About-Mental -Illness/Mental-H ealth-Conditions http_s://psychcen tral.com/depressi on/the-cognitive- qomihmqj-hw-calay ssion#treatments http__s://www.nim h.nih.gov/health/ topics/mental-hea [facility]-medications http__s://www.nam i.org/About-Menta l-Illness/Treatme nts/Mental-Health -Medications educated on [...] neurotoxicity and interactions with prescribed medications. 07/14/2024 Insomnia due to other mental disorder (ICD-10 - F51.05) Depression- Zoloft 50 mg daily start today- cesar titrate as needed in PT for High tone pelvic dysfunction- D/C Viibyrd 10 mg dose- last taken 07/13/24 - passive thoughts last Wednesday and Wednesday improved today none today no plan or intent schedule to see Wellness Trainer for chest pain- had test done and heart monitor scheduled Educated and discuss on medication options educated on all rx refer to therapy - Molly Anxiety-Buspar 10 mg three times a day with a meal - Xanax 0.25 mg PRN - educated to take for anxiety Sleep- sleep hygiene http_s://www.claudia .org/About-Mental -Illness/Mental-H ealth-Conditions http_s://psychcen Broadcast.com.com/depressi on/the-cognitive- uxwdjxoq-ug-gjujb ssion#treatments http__s://www.[facility].nih.gov/health/ topics/mental-hea lt-medications http__s://www.nam i.org/About-Menta l-Illness/Treatme nts/Mental-Health -Medications educated on [...] sleep hygiene http_s://www.claudia .org/About-Mental -Illness/Mental-H ealth-Conditions http_s://psychcen Broadcast.com.com/depressi on/the-cognitive- loqczknc-et-suvvq ssion#treatments http__s://www.[facility].nih.gov/health/ topics/mental-hea lt-medications http__s://www.nam i.org/About-Menta l-Illness/Treatme nts/Mental-Health -Medications educated on [...] no plan or intent schedule to see Wellness Trainer for chest pain- had test done and heart monitor scheduled Educated and discuss on medication options educated on all rx refer to therapy - Molly Anxiety-Buspar 10 mg three times a day with a meal - Xanax 0.25 mg PRN - educated to take for anxiety Sleep- sleep hygiene http_s://www.claudia .org/About-Mental -Illness/Mental-H ealth-Conditions http_s://[employer]/depressi on/the-cognitive- tpuclgps-sp-mglqq ssion#treatments http__s://www.nim h.nih.gov/health/ topics/mental-hea lth-medications http__s://www.nam i.org/About-Menta [...] and interactions with prescribed medications. 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 07/14/2024 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 therapy (ICD-10 - Z79.899) Medication [...] no plan or intent schedule to see Wellness Trainer for chest pain- had test done and heart monitor scheduled Educated and discuss on medication options educated on all rx refer to therapy - Molly Anxiety-Buspar 10 mg three times a day with a meal - Xanax 0.25 mg PRN - educated to take for anxiety Sleep- sleep hygiene http_s://www.claudia .org/About-Mental -Illness/Mental-H ealth-Conditions http_s://psychcen Broadcast.com.com/depressi on/the-cognitive- ezenruom-ez-qgwnz ssion#treatments http__s://www.nim .nih.gov/health/ topics/mental-hea lth-medications http__s://www.nam i.org/About-Menta [...] no plan or intent schedule to see Wellness Trainer for chest pain- had test done and [...] sleep hygiene http_s://www.claudia .org/About-Mental -Illness/Mental-H ealth-Conditions http_s://psychcen K[employer]/depressi on/the-cognitive- ghmrjadr-mw-cjaxh ssion#treatments http__s://www.nim h.nih.gov/health/ topics/mental-hea lth-medications http__s://www.nam i.org/About-Menta [...] 4 days- conitnue rx schedule to see Wellness Trainer today for chest pain- wakes up in night Educated and discuss on medication options educated on all rx refer to therapy - Molly Anxiety-Buspar 10 mg three times a day with a meal - Xanax 0.25 mg PRN (not taking presently) Sleep- sleep hygiene http_s://www.claudia .org/About-Mental -Illness/Mental-H ealth-Conditions http_s://[employer]/depressi on/the-cognitive- jfhlcznz-yd-ynnen ssion#treatments http__s://www.nim .nih.gov/health/ topics/mental-hea lth-medications http__s://www.nam i.org/About-Menta [...] no plan or intent schedule to see Wellness Trainer for chest pain- had test done and heart monitor scheduled Educated and discuss on medication options educated on all rx refer to therapy - Molly Anxiety-Buspar 10 mg three times a day with a meal - Xanax 0.25 mg PRN - educated to take for anxiety Sleep- sleep hygiene http_s://www.claudia .org/About-Mental -Illness/Mental-H ealth-Conditions http_s://psychcen Shakerl.com/depressi on/the-cognitive- bpeyrjik-xt-knaht ssion#treatments http__s://www.nim .nih.gov/health/ topics/mental-hea lth-medications http__s://www.nam i.org/About-Menta [...] risk, side effects, and monitor - see tabber and heart monitor scheduled discuss risk QTC/QT interval risk pateint reported felt the best on Paxil discuss cardiovascular risk Discuss and educated onTrintellix and Auvelity options Pateint agreed to Trintellix - will start Trintellix 5 mg daily for 2 week then increase Trintellix 10 mg daily - samples given hx PT for High tone pelvic dysfunction- no plan or intent schedule to see Wellness Trainer for chest pain- had test done and [...] anxiety Sleep- sleep hygiene http_s://www.claudia .org/About-Mental -Illness/Mental-H [facility]-Cond[facility] http_s://psychcen tral.com/depressi on/the-cognitive- yogycqhz-xj-mbivd ssion#treatments http__s://www.nim .nih.gov/health/ topics/mental-hea [facility]-medications http__s://www.nam i.org/About-Menta l-Illness/Treatme nts/Mental-Health -Medications educated on [...] to other mental disorder (ICD-10 - F51.05) 02/03/2024 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 therapy (ICD-10 - Z79.899) Medication [...] sleep hygiene http_s://www.claudia .org/About-Mental -Illness/Mental-H ealth-Conditions http_s://psychcen Shakerl.com/depressi on/the-cognitive- avrlpxsj-xk-ewypp ssion#treatments http__s://www.[facility].nih.gov/health/ topics/mental-hea lth-medications http__s://www.nam i.org/About-Menta l-Illness/Treatme [...] sleep hygiene http_s://www.claudia .org/About-Mental -Illness/Mental-H ealth-Conditions http_s://psychcen Shakerl.com/depressi on/the-cognitive- kirnosko-em-nuyss ssion#treatments http__s://www.nim h.nih.gov/health/ topics/mental-hea lth-medications http__s://www.nam i.org/About-Menta [...] risk, side effects, and monitor - see tabber and heart monitor scheduled discuss risk QTC/QT [...] no plan or intent schedule to see Wellness Trainer for chest pain- had test done and [...] sleep hygiene http_s://www.claudia .org/About-Mental -Illness/Mental-H ealth-Conditions http_s://psychcen Broadcast.com.com/depressi on/the-cognitive- xclneqtw-tl-vpyda ssion#treatments http__s://www.nim .nih.gov/health/ topics/mental-hea [facility]-medications http__s://www.nam i.org/About-Menta l-Illness/Treatme nts/Mental-Health -Medications educated on [...] for screening for depression (ICD-10 - Z13.31) 06/08/2024 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 02/14/2024 [facility] [place] [facility]current[facility] drug therapy (ICD-10 - Z79.899) 08/17/2024 Insomnia due to other mental disorder (ICD-10 - F51.05) 1. Depression- continue depression and anxiety d/c Zoloft 50 mg daily- diarrhea and weight loss discuss with patient Paxil and over age 60, benefits, risk, side effects, and monitor - see tabber and heart monitor scheduled discuss risk QTC/QT interval risk pateint reported felt the best on Paxil discuss cardiovascular risk Discuss and educated onTrintellix and Auvelity options Pateint agreed to Trintellix - will start Trintellix 5 mg daily for 2 week then increase Trintellix 10 mg daily - samples given hx PT for High tone pelvic dysfunction- no plan or intent schedule to see Wellness Trainer for chest pain- had test done and [...] http_s://www.claudia .org/About-Mental -Illness/Mental-H ealth-Conditions http_s://psychcen tral.com/depressi on/the-cognitive- ywcslxhm-vp-swxiw ssion#treatments http__s://www.nim .nih.gov/health/ topics/mental-hea [facility]-medications http__s://www.nam i.org/About-Menta l-Illness/Treatme nts/Mental-Health -Medications educated on [...] and interactions with prescribed medications. 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25 mg PRN - educated to take for anxiety Sleep- sleep hygiene http_s://www.claudia .org/About-Mental -Illness/Mental-H ealth-Conditions http_s://psychcen Shakerl.com/depressi on/the-cognitive- ektsidvi-lj-ldgnh ssion#treatments http__s://www.[facility].nih.gov/health/ topics/mental-hea [facility]-medications http__s://www.nam i.org/About-Menta l-Illness/Treatme nts/Mental-Health -Medications educated on [...] no plan or intent schedule to see Wellness Trainer for chest pain- had test done and [...] sleep hygiene http_s://www.claudia .org/About-Mental -Illness/Mental-H ealth-Conditions http_s://psychcen Shakerl.com/depressi on/the-cognitive- sfatqylq-py-yzvvp ssion#treatments http__s://www.nim .nih.gov/health/ topics/mental-hea lth-medications http__s://www.nam i.org/About-Menta [...] and interactions with prescribed medications. 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 (ICD-10 - Z79.899) Medication Refill: Care Instructions material was published, Medication Refill: Care Instructions material was published Depression- Zoloft 50 mg daily been on this ose 4 days- dav rx schedule to see Wellness Trainer today for chest pain- wakes up in night Educated and discuss on medication options educated on all rx refer to therapy - Molly Anxiety-Buspar 10 mg three times a day with a meal - Xanax 0.25 mg PRN (not taking presently) Sleep- sleep hygiene http_s://www.claudia .org/About-Mental -Illness/Mental-H ealth-Conditions http_s://psychSeagate [employer].com.com/depressi on/the-cognitive- kfkqfmpk-ip-uhhaf ssion#treatments http__s://www.nim .nih.gov/health/ topics/mental-hea lth-medications http__s://www.nam i.org/About-Menta [...] risk, side effects, and monitor - see tabber and heart monitor scheduled discuss risk QTC/QT [...] no plan or intent schedule to see Wellness Trainer for chest pain- had test done and [...] Sleep- sleep hygiene http_s://www.claudia .org/About-Mental -Illness/Mental-H ealth-Conditions http_s://psychAionex/depressi on/the-cognitive- ozirbeac-ox-zxgbi ssion#treatments http__s://www.nim h.nih.gov/health/ topics/mental-hea lth-medications http__s://www.nam i.org/About-Menta [...] neurotoxicity and interactions with prescribed medications. 08/17/2024 [place] [facility] drug therapy (ICD-10 - Z79.899) Medication Refill: Care Instructions material was published, Medication Refill: Care Instructions material was published, Medication Refill: Care Instructions material was published 1. Depression- continue depression and anxiety d/c Zoloft 50 mg daily- diarrhea and weight loss discuss with patient Paxil and over age 60, benefits, risk, side effects, and monitor - see tabber and heart monitor scheduled discuss risk QTC/QT interval risk pateint reported felt the best on Paxil discuss cardiovascular risk Discuss and educated onTrintellix and Auvelity options Pateint agreed to Trintellix - will start Trintellix 5 mg daily for 2 week then increase Trintellix 10 mg daily - samples given hx PT for High tone pelvic dysfunction- no plan or intent schedule to see Wellness Trainer for chest pain- had test done and [...] http_s://www.claudia .org/About-Mental -Illness/Mental-H ealth-Conditions http_s://psychcen tral.com/depressi on/the-cognitive- iwrexfyb-qh-xvybw ssion#treatments http__s://www.nim .nih.gov/health/ topics/mental-hea [facility]-medications http__s://www.nam i.org/About-Menta l-Illness/Treatme nts/Mental-Health -Medications educated on [...] and interactions with prescribed medications. 08/08/2024 [facility] [place] [facility] drug therapy (ICD-10 - Z79.899) Medication [...] no plan or intent schedule to see Wellness Trainer for chest pain- had test done and [...] sleep hygiene http_s://www.claudia .org/About-Mental -Illness/Mental-H ealth-Conditions http_s://psychcen [employer]/depressi on/the-cognitive- zbpdcbie-vx-cwxgu ssion#treatments http__s://www.nim .nih.gov/health/ topics/mental-hea lth-medications http__s://www.nam i.org/About-Menta [...] no plan or intent schedule to see Wellness Trainer for chest pain- had test done and heart monitor scheduled Educated and discuss on medication options educated on all rx refer to therapy - Molly Anxiety-Buspar 10 mg three times a day with a meal - Xanax 0.25 mg PRN - educated to take for anxiety Sleep- sleep hygiene http_s://www.claudia .org/About-Mental -Illness/Mental-H ealth-Conditions http_s://psychSeagate [employer]cast.com.com/depressi on/the-cognitive- btvlxelr-eh-jzrpu ssion#treatments http__s://www.[facility].nih.gov/health/ topics/mental-hea lth-medications http__s://www.nam i.org/About-Menta l-Illness/Treatme [...] 02/14/2024 Elevated liver enzymes (ICD-10 - R74.8) 09/05/2024 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 Depression- continue depression and anxiety discuss with patient Paxil and over age 60, benefits, risk, side effects, and monitor - see tabber and heart monitor scheduled discuss risk QTC/QT [...] no plan or intent schedule to see Wellness Trainer for chest pain- had test done and heart monitor scheduled- procedure - bladder biopsy schedule endometrosis biopsy schedule Educated and discuss on medication options educated on all rx refer to therapy - Molyl 2. Anxiety- Buspar 10 mg three times a day with a meal - Xanax 0.25 mg twice to three times daily PRN - reported not taking presently Patient reported Vistaril 10 mg three times a day PRN has helped Sleep- sleep hygiene http_s://www.claudia .org/About-Mental -Illness/Mental-H ealth-Conditions http_s://psychcen Broadcast.com.com/depressi on/the-cognitive- ojacpihs-tx-losla ssion#treatments http__s://www.nim h.nih.gov/health/ topics/mental-hea lth-medications http__s://www.nam i.org/About-Menta [...] risk, side effects, and monitor - see tabber and heart monitor scheduled discuss risk QTC/QT [...] no plan or intent schedule to see Wellness Trainer for chest pain- had test done and [...] http_s://www.claudia .org/About-Mental -Illness/Mental-H ealth-Conditions http_s://psychcen tral.com/depressi on/the-cognitive- gtnrrfxz-wl-arigd ssion#treatments http__s://www.nim .nih.gov/health/ topics/mental-hea [facility]-medications http__s://www.nam i.org/About-Menta l-Illness/Treatme nts/Mental-Health -Medications educated on [...] no plan or intent schedule to see Wellness Trainer for chest pain- had test done and [...] Sleep- sleep hygiene http_s://www.claudia .org/About-Mental -Illness/Mental-H ealth-Conditions http_s://psychSeagate [employer].com.com/depressi on/the-cognitive- ohjgmuxi-cx-wlemj ssion#treatments http__s://www.[facility].nih.gov/health/ topics/mental-hea lth-medications http__s://www.nam i.org/About-Menta l-Illness/Treatme [...] risk, side effects, and monitor - see tabber and heart monitor scheduled discuss risk QTC/QT interval risk pateint reported felt the best on Paxil discuss cardiovascular risk Discuss and educated onTrintellix and Auvelity options Pateint agreed to Trintellix - will start Trintellix 5 mg daily for 2 week then increase Trintellix 10 mg daily - samples given hx PT for High tone pelvic dysfunction- no plan or intent schedule to see Wellness Trainer for chest pain- had test done and [...] Sleep- sleep hygiene http_s://www.claudia .org/About-Mental -Illness/Mental-H ealth-Conditions http_s://On[employer]ela/depressi on/the-cognitive- yjiuwnth-ar-ppttf ssion#treatments http__s://www.nim .nih.gov/health/ topics/mental-hea lth-medications http__s://www.nam i.org/About-Menta [...] risk, side effects, and monitor - see tabber and heart monitor scheduled discuss risk QTC/QT [...] no plan or intent schedule to see Wellness Trainer for chest pain- had test done and [...] sleep hygiene http_s://www.claudia .org/About-Mental -Illness/Mental-H ealth-Conditions http_s://psychcen Shakerl.com/depressi on/the-cognitive- ofcylnnx-fq-jvnln ssion#treatments http__s://www.nim h.nih.gov/health/ topics/mental-hea lth-medications http__s://www.nam i.org/About-Menta [...] http_s://www.claudia .org/About-Mental -Illness/Mental-H ealth-Conditions http_s://psychcen tral.com/depressi on/the-cognitive- audjjrfj-zz-ufrob ssion#treatments http__s://www.[facility].nih.gov/health/ topics/mental-hea [facility]-medications http__s://www.nam i.org/About-Menta l-Illness/Treatme nts/Mental-Health -Medications educated on [...] sleep hygiene http_s://www.claudia .org/About-Mental -Illness/Mental-H ealth-Conditions http_s://psychcen [employer]pex [employer]/depressi on/the-cognitive- bgaghzxq-qz-wxgvg ssion#treatments http__s://www.nim .nih.gov/health/ topics/mental-hea lth-medications http__s://www.nam i.org/About-Menta [...] sleep hygiene http_s://www.claudia .org/About-Mental -Illness/Mental-H ealth-Conditions http_s://psychcen Broadcast.com.com/depressi on/the-cognitive- phnvnvpe-iv-mfhsu ssion#treatments http__s://www.nim h.nih.gov/health/ topics/mental-hea lth-medications http__s://www.nam i.org/About-Menta [...] no plan or intent schedule to see Wellness Trainer for chest pain- had test done and heart monitor scheduled Educated and discuss on medication options educated on all rx refer to therapy - Molly Anxiety-Buspar 10 mg three times a day with a meal - Xanax 0.25 mg PRN - educated to take for anxiety Sleep- sleep hygiene http_s://www.claudia .org/About-Mental -Illness/Mental-H ealth-Conditions http_s://psychcen Broadcast.com.com/depressi on/the-cognitive- mlpfmxza-ri-iaiyo ssion#treatments http__s://www.[facility].nih.gov/health/ topics/mental-hea lth-medications http__s://www.nam i.org/About-Menta l-Illness/Treatme [...] for full therapeutic effect as suggested by neuropsychology service director. - Maintain BuSpar and hydroxyzine as needed for anxiety management per neuropsychology service director - Encourage non-pharmacolog ical anxiety management techniques, such as accepting anxiety [...] her father at age 5 and a dismissive-avoi dant attachment style with her mother. These early [...] patterns - Explore the possibility of incorporating trauma-informed care approaches in future sessions 09/05/2024 Other Major Depressive Disorder - Assessment: Carmen has a long-standing history of depression, previously managed with Paxil. The severity of depressive symptoms is assessed as high, impacting daily functioning and quality of life. - Plan: - Reassess antidepressant options with prescribing physician - Continue current regimen of BuSpar for anxiety management - Encourage engagement in pleasurable activities as tolerated Anxiety Disorder - Assessment: Carmen reports longstanding anxiety, previously managed with Paxil and BuSpar. Current anxiety symptoms are exacerbated by medication changes, physical discomfort, and financial stressors. She describes feeling on edge and having difficulty in social situations, as evidenced by leaving congregational early due to overstimulation . - Plan: - Encourage stress reduction techniques and mindfulness practices - Discuss potential for gradual exposure to social situations as physical symptoms improve Plan Of Treatment Future Test Test Name Order Date Liver Function Test (LFT) 02/16/2024 LIPID PANEL WITH REFLEX TO DIRECT LDL (1 1024) 02/16/2024 COMPREHENSIVE METABOLIC PANEL (83849) CBC (INCLUDES DIFF/PLT) (6399) HEMOGLOBIN A1c (496) 02/16/2024 TSH W/REFLEX TO FT4 (72889) 02/16/2024 Next Appt Details Provider Name:Molly Mcallister, 09/25/2024 11:00:00 AM, [address], [address], [place], [address], Provider Name:Cami Rice , 09/25/2024 01:45:00 PM, [address], [address], [place], [address], Provider Name:Molly Mcallister, 10/10/2024 03:00:00 PM, [address], [address], [place], [address], Provider Name:Molly Mcallister, 10/23/2024 01:00:00 PM, [address], [address], [place], [address], Provider Name:Molly Mcallister, 11/07/2024 11:00:00 AM, [address], [address], [place], [address], Insurance Providers Payer Name Payer Address Payer Phone Subscriber Number Group Number Insured Name Patient Relationship to Insured Coverage Start Date Coverage End Date [place] [address] [place] [phone] [id number] CARMEN PAPPAS Self - patient is the insured [employer] [address] [place] [address] [id number] CARMEN PAPPAS Self - patient is the insured [...] History Surgery Date(Month/Year) Tonsilectomy/adenoids Endometr ablate thermal (35697) Removal of gallbladder (23350) Removal of ovary(s) (93878)
[2024-09-11 07:04] VITALS: BP 136/56; PULSE 83; RESP 16; TEMP 36.4; O2SAT 97
[2024-09-11] MEDS: ONDANSETRON INJ 4 MG/2 ML VIAL IV PUSH (07:10)
[2024-09-11] MEDS: LACTATED RINGERS 1,000 ML 30 ML IV CONT (07:10)
--- NOTE | 2024-09-11 07:24 | P.HP_ITS ---
History of Present Illness History of Present Illness Consent: Risks, benefits, and alternatives have been discussed and questions answered. Patient agrees to proceed with procedure. Chief complaint: thickened endometrial lining Narrative: Carmen Philippe is a 59 year old female with a pelvic ultrasound performed for pelvic pain. Ultrasound showed no obvious reason for the pelvic pain but did show thickened endometrium. It was recommended to undergo a hysteroscopy D&C for further evaluation. Risks of infection, bleeding, perforation, and possible pathology are reviewed. Patient voices understanding and agrees to proceed. [facility] Past Medical History Medical History (Updated 09/11/24 @ 07:28 by Shanda Virk MD) Fatty liver Fibromyalgia Morbid obesity Osteopenia Endometriosis Depression HTN (hypertension) Asthma Surgical History Surgical History (Updated 09/11/24 @ 07:27 by Shanda Virk MD) Status post laparoscopic cholecystectomy History of hysteroscopy 2013 and 2019 H/O cystoscopy Previous section History of bilateral tubal ligation S/P right oophorectomy History of tonsillectomy and adenoidectomy Family History Family History (Updated 01/30/15 @ 09:27 by DOCTOR UNKNOWN) Other Cerebrovascular accident Diabetes mellitus Family history of allergic disorder Family history of cardiovascular disease Family history of malignant neoplasm Hypertension Social History Social History Smoking status: Never smoker Alcohol intake: never Living arrangements: with family Spiritual care concerns: No Meds Home Medications and Allergies Home Medications ?Medication ?Instructions ?Recorded ?Confirmed ?Type albuterol sulfate 90 mcg/actuation 2 puff inhalation PRN PRN 05/08/19 07/27/24 History aerosol inhaler (Ventolin HFA) Shortness Of Breath cholecalciferol (vitamin D3) 125 5,000 unit PO EVERY OTHER DAY 05/08/19 07/27/24 History mcg (5,000 unit) disintegrating tablet fexofenadine-pseudoephedrine ER 1 tablet PO HS PRN allergy symptoms 05/08/19 08/31/24 History 180 mg-240 mg tablet,ext.release 24 hr (Ryanne-D 24 Hour) buspirone 10 mg tablet 10 mg PO TID 07/27/24 07/27/24 History hydrochlorothiazide 25 mg tablet 25 mg PO DAILY 07/27/24 07/27/24 History losartan 50 mg tablet 50 mg PO HS 07/27/24 07/27/24 History alprazolam 0.25 mg tablet 0.25 mg PO DAILY PRN anxiety 08/31/24 08/31/24 History hydroxyzine HCl 10 mg tablet 10 mg PO DAILY 08/31/24 08/31/24 History vortioxetine 10 mg tablet 5 mg PO DAILY 08/31/24 08/31/24 History (Trintellix) Allergies Allergy/AdvReac Type Severity Reaction Status Date / Time iodine Allergy Mild EYE Verified 08/31/24 14:40 SWELLING Penicillins Allergy Unknown Hives Verified 08/31/24 14:40 Sulfa (Sulfonamide Allergy Unknown Unknown Verified 08/31/24 14:40 Antibiotics) GLUTARALDEHYDE Allergy Unknown HIVES Uncoded 08/31/24 14:40 Exam Const: General: healthy appearing and alert Orientation/consciousness: patient oriented x3 Resp: Effort & Inspection: normal respiratory effort GI: GI Palp: Yes Soft to palpation, No Tenderness to palpation present (GI) and No Palpable mass present : External Female Exam: normal external appearance Speculum Exam - Vagina: normal appearance of the vagina and normal vaginal discharge Speculum Exam - Cervix: normal appearance of the cervix Bimanual exam- vagina & uterus: uterine size normal and consistency normal Bimanual Exam- Adnexa, other: normal adnexae and No adnexal tenderness Neuro: General: patient oriented x3 Assessment and Plan Assessment and plan (1) Thickened endometrium: Code(s): R93.89 - Abnormal findings on diagnostic imaging of other specified body structures Status: Acute Assessment and Plan: Plan to proceed with D&C hysteroscopy
--- NOTE | 2024-09-11 07:24 | WPDHPUPDATE1 ---
History and Physical Update Update Date/Time: 09/11/24 07:24 History and Physical has been reviewed, including an updated exam of the patient. There are NO changes in the patient's condition. Risks, benefits, and alternatives have been discussed and questions answered. Patient agrees to proceed with procedure.
--- NOTE | 2024-09-11 07:50 | P.PNAN_ITS ---
Anes - Initial Pre Proc Eval Procedure: Operation Date: 09/11/24 09:00 Proposed Procedures p Hysteroscopy Dilation and Curettage - Shanda Virk MD Date/Time: 09/11/24 07:50 Surgeon: Shanda Virk MD Pre Op Diagnosis: thickened endometrial lining Patient Data Age: 59 Gender: F Height: 1.57 m Weight: 90 kg Last Vital Signs Temp 36.4 C 09/11/24 07:04 Pulse 83 09/11/24 07:04 Resp 16 09/11/24 07:04 BP 136/56 L 09/11/24 07:04 Pulse Ox 97 09/11/24 07:04 O2 Del Method Room Air 09/11/24 07:04 Allergies Allergy/AdvReac Type Severity Reaction Status Date / Time iodine Allergy Mild EYE Verified 09/11/24 07:32 SWELLING Penicillins Allergy Unknown Hives Verified 09/11/24 07:32 Sulfa (Sulfonamide Allergy Unknown Unknown Verified 09/11/24 07:32 Antibiotics) GLUTARALDEHYDE Allergy Unknown HIVES Uncoded 09/11/24 07:32 Home Medications ?Medication ?Instructions ?Recorded ?Confirmed ?Type albuterol sulfate 90 mcg/actuation 2 puff inhalation PRN PRN 05/08/19 07/27/24 History aerosol inhaler (Ventolin HFA) Shortness Of Breath cholecalciferol (vitamin D3) 125 5,000 unit PO EVERY OTHER DAY 05/08/19 09/11/24 History mcg (5,000 unit) disintegrating tablet fexofenadine-pseudoephedrine ER 1 tablet PO HS PRN allergy symptoms 05/08/19 08/31/24 History 180 mg-240 mg tablet,ext.release 24 hr (Ryanne-D 24 Hour) buspirone 10 mg tablet 10 mg PO TID 07/27/24 09/11/24 History hydrochlorothiazide 25 mg tablet 25 mg PO DAILY 07/27/24 09/11/24 History losartan 50 mg tablet 50 mg PO HS 07/27/24 07/27/24 History alprazolam 0.25 mg tablet 0.25 mg PO DAILY PRN anxiety 08/31/24 09/11/24 History hydroxyzine HCl 10 mg tablet 10 mg PO DAILY 08/31/24 09/11/24 History vortioxetine 10 mg tablet 5 mg PO DAILY 08/31/24 09/11/24 History (Trintellix) ondansetron HCl 4 mg tablet 4 mg PO Q6H PRN nausea and vomiting 09/11/24 09/11/24 History Patient hx anesthesia problems: none Family hx anesthesia problems: none Results Review: All pre-operative results and documents have been reviewed as part of the pre- operative evaluation. [facility] Past Medical History Medical History (Updated 09/11/24 @ 07:28 by Shanda Virk MD) Fatty liver Fibromyalgia Morbid obesity Osteopenia Endometriosis Depression HTN (hypertension) Asthma Surgical History Surgical History (Updated 09/11/24 @ 07:27 by Shanda Virk MD) Status post laparoscopic cholecystectomy History of hysteroscopy 2013 and 2019 H/O cystoscopy Previous section History of bilateral tubal ligation S/P right oophorectomy History of tonsillectomy and adenoidectomy Family History Family History (Updated 01/30/15 @ 09:27 by DOCTOR UNKNOWN) Other Cerebrovascular accident Diabetes mellitus Family history of allergic disorder Family history of cardiovascular disease Family history of malignant neoplasm Hypertension Social History Social History Smoking status: Never smoker Alcohol intake: never Living arrangements: with family Spiritual care concerns: No Anes - Eval Final PreProcedure Day of Procedure 09/11/24 07:50 Patient weight: obese Heart: regular rate and rhythm Lungs: clear to auscultation Airway: Mallampati scale class II Neurological: alert and oriented Last oral intake: >/= 8 hours ASA classification: III Emergent: no Anesthetic plan: proceed Anesthesia type and monitoring: general GIVS and standard monitoring Results Review: All pre-operative results and documents have been reviewed as part of the pre- operative evaluation. Informed Consent: The patient's anesthetic plan and its attendant risks and benefits were discussed with the patient/family/POA. Questions were solicited and answers provided to the satisfaction of the patient/family/POA.
[2024-09-11] MEDS: KETOROLAC 15 MG/ML VIAL (*BKC) IV PUSH (09:04)
--- NOTE | 2024-09-11 09:04 | P.OP_ITS ---
Procedure Note - Detailed Date of Procedure 09/11/24 Pre-op Diagnosis thickened endometrial lining Post-op Diagnosis Same Procedure Performed D&C hysteroscopy Surgeon Shanda Virk MD Anesthesia MAC Findings The uterus sounds to 8cm. There was a polyp on the left sidewall. There was also scarring on the left side. Description of Procedure The patient was taken to the operating room and placed under anesthesia in the dorsal lithotomy position. She was prepped and draped in the usual sterile fashion. [place] speculum was placed in the vagina and the cervix grasped on the anterior lip with a tenaculum. The uterus sounded to 8cm. The diagnostic hysteroscope was placed and with the above-stated findings the small Aveta resection device was placed. The polyp and scar tissue were removed using the resection device. The remainder of the endometrium appeared grossly atrophic. The hysteroscope was removed. The sharp curette is used to curette the endometrium until a good uterine cry was noted in all areas. All instruments are removed. Sponge, needle, and instrument counts are correct per the OR staff. The patient was awakened from anesthesia and taken to recovery in stable condition. Estimated Blood Loss 5 Drains No Packing No Pathology Yes ( Endometrial shavings and curettings) Complications No immediate complications Condition Stable Disposition PACU
[2024-09-11 09:06] VITALS: BP 149/65; PULSE 90; RESP 14; O2SAT 99
[2024-09-11 09:23] VITALS: O2SAT 100
[2024-09-11 09:30] VITALS: BP 157/58; PULSE 83; RESP 16; O2SAT 95
[2024-09-11] MEDS: oxyCODONE HCL (*CRX) 5 MG TAB IR PO (09:48)
[2024-09-11 10:00] VITALS: BP 145/58; PULSE 67; RESP 16
[2024-09-11 10:15] VITALS: BP 155/55; PULSE 71; RESP 16
== END 2024-09-11 10:22 | disposition home or self-care (01) ==
PROVIDERS: PCP Internal Medicine; Visit Provider Obstetrics & Gynecology Gynecology
PROC: 0U5B8ZZ Destruction of Endometrium, Via Natural or Artificial Opening Endoscopic (ICD-10-PCS; CPT 58563; principal; 2024-09-11 09:00)
DX: R93.89 Abnormal findings on diagnostic imaging of other specified body structures (principal); N85.8 Other specified noninflammatory disorders of uterus; I10 Essential (primary) hypertension; J45.909 Unspecified asthma, uncomplicated; M79.7 Fibromyalgia; F32.A Depression, unspecified; M85.88 Other specified disorders of bone density and structure, other site; E66.9 Obesity, unspecified; Z68.36 Body mass index [BMI] 36.0-36.9, adult; Z79.51 Long term (current) use of inhaled steroids; Z79.899 Other long term (current) drug therapy; Z98.890 Other specified postprocedural states; Z90.49 Acquired absence of other specified parts of digestive tract; Z98.51 Tubal ligation status; Z80.9 Family history of malignant neoplasm, unspecified; Z82.49 Family history of ischemic heart disease and other diseases of the circulatory system
CPT/HCPCS: 58558; 88305; A9270; J1100; J1200; J1885; J2003; J2250; J2405; J2704; J3010; J7120

== ENCOUNTER 2025-03-20 12:53 | Outpatient (CLI) | payer MEDICARE, OTHER, SELFPAY ==
--- NOTE | ~2025-03-20 | MM_ITS ---
EXAMINATION: MM screening mesfin BI w urmila HISTORY: Screening TECHNIQUE: Craniocaudal and mediolateral oblique 3-D tomosynthesis images were obtained and synthetic 2-D images were generated. CAD analysis was submitted and interpreted. COMPARISON: Comparison to multiple prior studies sequentially, with oldest reviewed study dated , 05/15/2015 BREAST PARENCHYMAL COMPOSITION: There are scattered areas of fibroglandular density. FINDINGS: There is no evidence of suspicious mass, calcification, or architectural distortion to suggest malignancy in either breast. IMPRESSION: 1. No mammographic evidence of malignancy. 2. Recommend routine screening mammography in one year. BI-RADS Category 1: Negative Reviewed, dictated and finalized at location B. ANALYST
== END 2025-03-20 12:54 | disposition home or self-care (01) ==
LOC: MICIMG 12:54
PROVIDERS: PCP Nurse Practitioner; Visit Provider Nurse Practitioner
DX: Z12.31 Encounter for screening mammogram for malignant neoplasm of breast (principal)
CPT/HCPCS: 77063; 77067